=== PATIENT | female | born 1995 ===

== ENCOUNTER 2023-12-02 08:22 | Outpatient (CLI) | payer MEDICAID, SELFPAY | END 2023-12-02 08:23 | disposition home or self-care (01) | PROVIDERS: Visit Provider Obstetrics & Gynecology | DX: O20.9 Hemorrhage in early pregnancy, unspecified (principal) | CPT/HCPCS: 84702; 86850; 86900; 86901 ==

== ENCOUNTER 2024-02-14 09:19 | Emergency (ER) | payer MEDICAID, SELFPAY ==
[2024-02-14 09:25] VITALS: BP 121/77; PULSE 84; RESP 16; TEMP 36.8; O2SAT 98; BMI 34.7
--- NOTE | 2024-02-14 09:50 | CRLHL7_ITS ---
For Patients: As a result of the Century Cures Act, medical imaging exams and procedure reports are released immediately into your electronic medical record. You may view this report before your referring provider. If you have questions, please contact your health care provider. INDICATION: Left lower quadrant abdominal pain, spotting, early , LMP 12/29/2023 (gestational age 6 weeks 5 day). TECHNIQUE: Ultrasound OB pelvis transvaginal. Real-time major-scale imaging of the pelvis was performed. COMPARISON: None available. FINDINGS: There is a single intrauterine gestation. The embryo demonstrates a regular cardiac rate measuring 123 beats per minute. The embryo`s crown rump length measurement of 0.7 cm corresponds to a gestational age of 6 weeks 4 days with a sonographic due date of 10/05/2024. There is a normal-appearing yolk sac. No perigestational hemorrhage is identified. Right ovary measures 3.8 x 2.2 x 2.5 cm with peripherally hypervascular corpus luteum. Left ovary measures 2.8 x 1.6 x 1.8 cm. No adnexal masses seen. IMPRESSION: Single viable intrauterine with sonographic gestational age of 6 weeks 4 days. Dictated by Jami Alexander MD @ 02/14/2024 10:42:50 AM (Electronically Signed)
[2024-02-14 10:01] LABS: Appearance Urine Clear (Clear); Bilirubin Urine Negative (Negative); Blood Urine 1+ (Negative); Color Urine Yellow (Yellow); Glucose Urine Negative (Negative); Ketones Urine Negative (Negative); Leukocyte Esterase Urine Negative (Negative); Nitrite Urine Negative (Negative); Protein Urine Negative (Negative); Urobilinogen Urine 0.2 (0.2-1.0)
[2024-02-14 10:10] LABS: Bacteria Urine Few; RBC Urine 0-2 (0-2); Squamous Epithelial Cell Urine Few (None-Few); WBC Urine 0-2 (0-5)
--- NOTE | 2024-02-14 10:10 | ED.ABDPAIN ---
HPI - Abdominal Pain General Chief Complaint: Abdominal Pain Stated Complaint: L side abdominal cramping, spotting Time Seen by Provider: 02/14/24 10:09 History of Present Illness HPI narrative: Patient is 6 weeks 5days . 4pregnancy, 2 living kids. Started having spotting and cramping on left side on wednesday night. Bleeding has not gotten any heavier but pain is 8/10 but comes and goes. patient is worried about the pain. Does have some nausea. Last bowel movement last night?loose stools. 28-year-old woman presenting to the emergency department with concern of bleeding in . Did have some nausea during this time. Initial onset was 2 nights ago. Saw some brown blood and then brighter. Associated also with cramping on this left-sided seems to come and go. No recent intercourse. She reports recently what she thinks was a chemical . Currently with 2 miscarriages. Has been experiencing looser stools since noting . No dysuria. Reports positive blood type. She thinks O positive. Has already set up follow-up OB appointment on February 24. Related Data Home Medications ?Medication ?Instructions ?Recorded ?Confirmed vitamins no.144-folic 2 tab PO DAILY 02/14/24 02/14/24 acid 400 mcg chewable tablet () Allergies Allergy/AdvReac Type Severity Reaction Status Date / Time No Known Drug Allergies Allergy Verified 02/14/24 09:24 Review of Systems Status of ROS Reports: 6 or more systems reviewed and unremarkable except as noted in History and below PFSH PFS Social History Smoking Status: Never smoker Do you use any of these nicotine containing products: None Second hand tobacco smoke exposure: No How often do you have a drink containing alcohol: never AUDIT-C Alcohol total score: 0 Non-prescribed substance use: denies use service: No Exam Narrative: Exam Narrative: Pleasant. Quite calm. Skin is warm and dry. Abdomen is soft without peritoneal signs. She is mildly tender to palpation in the left adnexal area to left of suprapubic. Well-perfused peripherally. Breathing easily. exam was not done. Const: Vital Signs, click to edit/add: Vital Signs - 24 hr 02/14/24 09:25 Temperature 98.3 F Pulse Rate [Pulse Oximeter] 84 Respiratory Rate 16 Blood Pressure [Ri ght Upper Arm] 121/77 Pulse Oximetry 98 Oxygen Delivery Me thod Room Air Documenting provider has reviewed patient's vital signs: yes Course Vital Signs Vital signs: Initial Vital Signs Temperature 98.3 F 02/14/24 09:25 Temperature Source Temporal Artery Scan 02/14/24 09:25 Pulse Rate 84 02/14/24 09:25 Pulse Rhythm Regular 02/14/24 09:25 Pulse Strength 3+ Normal 02/14/24 09:25 Respiratory Rate 16 02/14/24 09:25 Blood Pressure 121/77 02/14/24 09:25 Blood Pressure Mean 91 02/14/24 09:25 Pulse Oximetry 98 02/14/24 09:25 Oxygen Delivery Method Room Air 02/14/24 09:25 Vital Signs Temperature 98.3 F 02/14/24 09:25 Pulse Rate 84 02/14/24 09:25 Respiratory Rate 16 02/14/24 09:25 Blood Pressure 121/77 02/14/24 09:25 Pulse Oximetry 98 02/14/24 09:25 Oxygen Delivery Method Room Air 02/14/24 09:25 Temperature 98.3 F 02/14/24 09:25 Pulse Rate 84 02/14/24 09:25 Respiratory Rate 16 02/14/24 09:25 Blood Pressure 121/77 02/14/24 09:25 Pulse Oximetry 98 02/14/24 09:25 Oxygen Delivery Method Room Air 02/14/24 09:25 MDM - Abdominal Pain MDM Narrative Medical decision making narrative: Would need verification of location of . Differential does include ectopic . Subchorionic hemorrhage possible as well. Miscarriage otherwise? And does not seem to have symptoms otherwise to suggest bleeding associated with a vaginal infection. Symptoms inconsistent also with urinary tract infection. Prior to my seeing patient, blood work has been collected. Anticipating vaginal ultrasound as well. Labs are reassuring. Urinalysis with small amount of blood on dipstick. Pending yet is hCG quantitative and type and screen. I do not believe there is description of enough bleeding to warrant RhoGAM equivalent regardless. I discussed ultrasound with plant operations coordinator. This is reassuring with LMP correlating intrauterine . Would consider possibly resolved subchorionic hemorrhage as source of bleeding. Pending yet is formal over-read by Radiology, confirmation of blood type as well as hCG quantitative. TECHNIQUE: Ultrasound OB pelvis transvaginal. Real-time major-scale imaging of the pelvis was performed. COMPARISON: None available. FINDINGS: There is a single intrauterine gestation. The embryo demonstrates a regular cardiac rate measuring 123 beats per minute. The embryo`s crown rump length measurement of 0.7 cm corresponds to a gestational age of 6 weeks 4 days with a sonographic due date of 10/05/2024. There is a normal-appearing yolk sac. No perigestational hemorrhage is identified. Right ovary measures 3.8 x 2.2 x 2.5 cm with peripherally hypervascular corpus luteum. Left ovary measures 2.8 x 1.6 x 1.8 cm. No adnexal masses seen. IMPRESSION: Single viable intrauterine with sonographic gestational age of 6 weeks 4 days. See patient discharge plan for further discussion Medical Records Attestation: I reviewed the patient's medical records. Lab Data Attestation: I reviewed the patient's lab results. Labs: Lab Results 02/14/24 02/14/24 Range/Units 09:45 10:10 WBC 5.81 (4.50-11.00) K/uL RBC 4.69 (4.00-5.20) m/uL Hgb 13.6 (12.0-16.0) gm/dL Hct 42.2 (33.0-51.0) % MCV 90 (80-100) fL MCH 29 (26-34) pg MCHC 32 (32-36) gm/dL RDW Coeff of Brittni 13.0 (11.5-15.5) % Plt Count 171 (140-440) K/uL Neut % (Auto) 58.3 (42.0-72.0) % Lymph % (Auto) 32.4 (20-44) % [place] % (Auto) 5.3 (0.0-11.0) % Eos % (Auto) 3.3 (0.0-7.0) % Baso % (Auto) 0.7 (0.0-3.0) % Neut # (Auto) 3.39 (1.7-7.0) K/uL Lymph # (Auto) 1.88 (0.90-2.90) K/uL [place] # (Auto) 0.30 (0.00-0.90) K/UL Eos # (Auto) 0.19 (0.00-0.50) K/uL Baso # (Auto) 0.04 (0.00-0.30) K/uL Abs Immat Gran (auto) 0.00 (0.00-0.30) K/uL Imm/Tot Granulo (auto) 0.0 % Urine Color Yellow (Yellow) Urine Appearance Clear (Clear) Urine pH 7.0 (5.0-8.5) Ur Specific [place] 1.010 (1.000-1.030) Urine Protein Negative (Negative) Urine Glucose (UA) Negative (Negative) Urine Ketones Negative (Negative) Urine Blood 1+ A (Negative) Urine Nitrite Negative (Negative) Urine Bilirubin Negative (Negative) Urine Urobilinogen 0.2 (0.2-1.0) Ur Leukocyte Esterase Negative (Negative) Urine RBC 0-2 (0-2) Urine WBC 0-2 (0-5) Ur Squamous Epith Cells Few (None-Few) Urine Bacteria Few A (None) Discharge Plan Discharge Clinical Impression: Bleeding in early Patient Disposition: Home, Self-Care Condition: Stable Additional Instructions: Stay well-hydrated. Usual level of activity should be fine. At this point it looks like your is doing well and consistent with your last menstrual period dating. I will call you if there is anything further to discuss regarding the remaining labs and the formal ultrasound report/over-read. Follow-up otherwise for your OB appointment as scheduled in 11 days. Return sooner if necessary for further bleeding such that your soaking through 1 heavy pad an hour for 2 consecutive hours, experiencing associated lightheadedness, fever, marked increase in persistent abdominal pain. [facility] from [facility]. Prescriptions: No Action 400 mcg tablet,chewable 2 tab PO DAILY Follow Up/Referrals: Provider,Not a Local [Primary Care Provider] - Stand Alone Forms: [employer] Info Instructions
[2024-02-14 10:16] LABS: Basophils Absolute Auto 0.04 K/uL (0.00-0.30); Basophils Percent Auto 0.7 % (0.0-3.0); Eosinophils Absolute Auto 0.19 K/uL (0.00-0.50); Eosinophils Percent Auto 3.3 % (0.0-7.0); Hematocrit 42.2 % (33.0-51.0); Hemoglobin* 13.6 gm/dL (12.0-16.0); Lymphocytes Absolute Auto 1.88 K/uL (0.90-2.90); Lymphocytes Percent Auto 32.4 % (20-44); Mean Corpuscular HGB Conc 32 gm/dL (32-36); Mean Corpuscular Hemoglobin 29 pg (26-34); Mean Corpuscular Volume 90 fL (80-100); Monocytes Percent Auto 5.3 % (0.0-11.0); Neutrophils Absolute Auto 3.39 K/uL (1.7-7.0); Neutrophils Percent Auto 58.3 % (42.0-72.0); Platelet Count* 171 K/uL (140-440); Red Blood Count 4.69 m/uL (4.00-5.20); Slide Review Reflex No; White Blood Count* 5.81 K/uL (4.50-11.00)
== END 2024-02-14 11:01 | disposition home or self-care (01) ==
LOC: ED 10:49
PROVIDERS: Emergency Medicine; Emergency Provider Family Medicine
DX: O20.9 Hemorrhage in early pregnancy, unspecified (principal)
CPT/HCPCS: 36415; 76817; 81001; 84702; 85025; 86850; 86900; 86901; 87086; 99283; 99284

== ENCOUNTER 2024-02-15 12:49 | Outpatient (CLI) | payer MEDICAID, SELFPAY ==
--- OUTSIDE RECORDS SUMMARY | 2024-02-15 12:52 | XMS_ITS | Clinical Summary ---
Author Organization [employer] [facility] Address [place], [place] [address] Care Team Providers Care Jumbo Operator Name Role Phone Pcp, No Unavailable Unavailable Pcp, No Unavailable Unavailable None Primary Care Provider Unavailabl e Allergies No known active allergies Medications Medication Sig Dispensed Refills Start Date End Date Status HYDROcodone-aceta minophen (NORCO) 5-325 mg per tabletIndications :Dental infection,Pain, dental Take 1 Tablet by mouth 3 times daily if needed for Pain. Max acetaminophen dose: 4000 mg in 24 hrs. 15 Tablet 08/27/2021 Active benzonatate (TESSALON) 100 mg capsuleIndication s:Acute bronchitis with symptoms > 10 days Take 1-2 Capsules (100-200 mg) by mouth 3 times daily if needed for Cough. 30 Capsule 01/13/2023 Active albuterol HFA (PRO-AIR; VENTOLIN; PROVENTIL) 90 mcg/actuation inhalerIndication s:Acute bronchitis with symptoms > 10 days Inhale 1-2 Puffs by mouth every 4 hours if needed for Shortness Of Breath or Wheezing. 1 Each 01/13/2023 Active Active Problems Problem Noted Date Diagnosed Date Irregular menses Immunizations Name Administration Dates Next Due DTaP 12/19/1998, 6,03/02/1995,12/07,1994 Hepatitis A (Adult) 01/30/2014 Hepatitis A (Peds) 02/18/2011 Hepatitis B (Peds) 08/26/1995,1994, 994 Hib Conjugate, Unspecified 08/26/1995,,1994,10/05 Human Papilloma Virus Vaccine 01/30/2014, 011 Influenza, IIV4 (=>6mos) MDV 03/06/2014 MENINGOCOCCAL VACCINE 2 VIAL 2MO-55YO (MENVEO) 02/18/2011 MMR 12/19/1998,05/14/1995 Polio Virus, Unspecified 12/19/1998,01/1995,1994,10/05 TD, UNSPECIFIED 07/18/2004 Td (Age >=7 Years) 07/18/2004 Tdap 11/05/2020,11/10/2018 Tuberculin (PPD) 03/12/2014,02/27/2014 Tuberculin Skin Test, Unspecified 03/12/2014, Family History Medical History Relation Name Comments Diabetes Father Diabetes Mother Endometrial cancer Mother Hypertension Mother Relation Name Status Comments Father Alive Mother Alive Social History Tobacco Use Types Packs/Day Years Used Date Smoking Tobacco: Never Smokeless Tobacco: Never Tobacco Cessation:Counseling Given: Yes Alcohol Use Standard Drinks/Week Comments No 0 (1 standard drink = 0.6 oz pur e alcohol) PHQ-2 Answer Date Recorded PHQ-2 Score 0 07/11/2019 Social Connections Answer Date Recorded Frequency of Communication with Friends and Fami ly 0 01/13/2023 Financial Resource Strain Answer Date R ecorded Difficulty of Paying Living Expenses 3 01/13/2023 Difficulty of Paying Living Expenses Not on file 01/13/2023 Food Insecurity Answer Date Recorded Worried About Running Out of Food in the Last Ye ar 1 01/13/2023 Transportation Needs Answer Date Record ed Lack of Transportation (Medical) 1 01/13/2023 Housing Stability Answer Date Recorded Unable to Pay for Housing in the Last Year 1 01/13/2023 Sex and Gender Information Value Date Recorded Sex Assigned at Not on file Gender Identity Not on file Sexual Orientation Not on file Obstetrics History Para Term AB IAB SAB Ectopic Multiple Livin g Live Births 2 Date Outcome GA Total Labor Labor/2nd/3rd Weight Sex Type Anes PTL Mimi A1 A5 Name Clin Last Filed Vital Signs Vital Sign Reading Time Taken Comments Blood Pressure 121/70 01/13/2023 5:05 PM CDT Pulse 90 01/13/2023 7:00 PM CDT Temperature 36.7 ??C (98.1 ??F) 01/13/2023 5:05 PM CD T Respiratory Rate 18 01/13/2023 5:05 PM CDT Oxygen Saturation 99% 01/13/2023 7:00 PM CDT Inhaled Oxygen Concentration - - Weight 88.5 kg (195 lb) 01/13/2023 5:05 PM CDT Height 162.6 cm (5' 4) 08/11/2020 7:30 PM CLAIMS ASSOCIATE Body Mass Index 33.47 08/11/2020 7:30 PM CLAIMS ASSOCIATE Plan of Treatment Health Maintenance Due Date Last Done Comments HIV for age 15-65 2009 Hepatitis C screening for age 18-79 2012 BMI (ht and wt on same day) for age 18+ 07/11/2020 07/11/2019, 03/30/2018, 01/10/2018, Additional history exists Depression screening for age 12+ 07/14/2020 07/14/2019, 07/11/2019, 01/12/2018, Additional history exists Pap test for age 21-65 06/17/2023 06/17/2020, 2017 COVID-19 vaccine series (2022- season) 2024 Influenza for age 9-49 02/06/2024 03/06/2014 Tetanus booster 11/05/2030 11/05/2020, 0611/2018, 07/18/2004, Additional history exists Tdap Completed 11/05/2020, 11/10/2018 Pneumococcal series for age 6-64 Aged Out No longer eligible based on patient's age to complete this topic Procedures Procedure Name Priority Date/Time Associated Diagnosis Comments DIRECTOR OF OPERATIONS SUPPORT THIN PREP PAP SCREEN IMAGED Routine 06/17/2020 3:15 PM CLAIMS ASSOCIATE from Last 3 Months or Most Recently Relevant to Health Maintenance Results * DIRECTOR OF OPERATIONS SUPPORT THIN PREP PAP SCREEN IMAGED (06/17/2020 3:15 PM CLAIMS ASSOCIATE) Case Report Gynecologic Cytology Report ? Case: [id number] ? Authorizing Provider: ??Lise Nation CNM ? Collected: ? 06/17/2020 1515 ? Ordering Location: ? [facility] ?Received: ?06/18/2020 1745 ? First Screen: ?Alona Allison ? Specimen: ?DIRECTOR OF OPERATIONS SUPPORT ThinPrep Vial Screening, Cervical/Vaginal ? 06/25/2020 12:20 PM [facility] INTERPRETATION/ RESULT NEGATIVE FOR INTRAEPITHELIAL LESION OR MALIGNANCY (NIL) (none) 06/25/2020 12:20 PM [facility] IMEN ADEQUACY Satisfactory for evaluation Endocervical component present 06/25/2020 12:20 PM [facility] HPV REQUEST HPV if ASCUS 06/25/2020 12:20 PM [facility] Additional Information 06/25/2020 12:20 PM [facility] Comment: Interpreted at [facility] - [address], [place] [address] Automated Review Successful 06/25/2020 12:20 PM [facility] Comment:Specimen processed s uccessfully by automated film flat inspector device, ThinPrep Imaging System, [employer] Note The pap test is a screening technique, not a diagnostic procedure. It is used primarily to screen for squamous cancers and precursor lesions. Published studies have shown that it is subject to both false negative and false positive results. The pap test should not be used as the sole means to diagnose or exclude pre-malignant and malignant lesions. 06/25/2020 12:20 PM CLAIMS ASSOCIATE [facility] [place] Other (Cervical/Vagina l) 06/17/2020 3:15 PM CLAIMS ASSOCIATE 06/18/2020 5:45 PM CLAIMS ASSOCIATE Lise Nation CNM PATHOLOGY/CYTOLOGY [facility] [employer] [facility] [address] [place] [address], from Last 3 Months or Most Recently Relevant to Health Maintenance Care Teams Jumbo Operator Relationship Specialty Start Date End Date None . PCP - General 01/13/23 Pcp, No . 10/16/16 Pcp, No . 08/25/13
--- NOTE | 2024-02-15 13:00 | CRLHL7_ITS ---
For Patients: As a result of the Century Cures Act, medical imaging exams and procedure reports are released immediately into your electronic medical record. You may view this report before your referring provider. If you have questions, please contact your health care provider. INDICATION: Abnormal vaginal bleeding in early . TECHNIQUE: Transvaginal limited obstetric ultrasound examination of the pelvis was performed. Grayscale and color Doppler images were obtained. COMPARISON: Pelvic ultrasound 02/14/2024. FINDINGS: Uterus: Normal in echotexture. No suspicious masses. Endometrium: No significant endometrial free fluid. Intrauterine gestation: Yes. Mean sac diameter of 1.0 cm. cardiac activity: Yes. [address] [place]-rump length: 7 mm. Estimated gestational age of 6 weeks and 4 days. Yolk sac: Normal. Perigestational hemorrhage: No. Estimated sonographic due date: 10/06/2024. Right Ovary: No suspicious masses. Possible right corpus luteal cyst. Normal arterial and venous flow on color Doppler imaging. Left ovary: Not visualized, limiting its evaluation. The left ovary appeared within normal limits on the ultrasound performed the previous day. Cul-de-sac: No free fluid. IMPRESSION: Single viable intrauterine with estimated gestational age of 6 weeks and 4 days by crown-rump length, and estimated due date of 10/06/2024. Dictated by Warner Molina MD @ 02/15/2024 6:28:45 PM (Electronically Signed)
== END 2024-02-15 12:50 | disposition home or self-care (01) ==
LOC: US 12:50
PROVIDERS: Visit Provider Obstetrics & Gynecology
DX: O20.9 Hemorrhage in early pregnancy, unspecified (principal)
CPT/HCPCS: 76817

== ENCOUNTER 2024-02-18 14:15 | Outpatient (CLI) | payer MEDICAID, SELFPAY ==
--- OUTSIDE RECORDS SUMMARY | 2024-02-18 14:17 | XMS_ITS | Clinical Summary ---
Author Organization [facility] Address [place], [place] [address] Care Team Providers Care Hardboard Coating Machine Operator Name Role Phone Pcp, No Unavailable [...] Problem Noted Date Diagnosed Date Irregular menses Comments Yes Encounters Date Type Department Care Team Description 02/16/2024 11:42 AM CDT - 02/16/2024 1:30 PM CDT Emergency [facility] [address] [place] [address] Joaquim Bowers PA Miscarriage (Primary Dx) Discharge Disposition: Home Self Care 02/16/2024 Travel 02/16/2024 Nurse Triage [facility] [address] [facility] [id number] Crescencio Arias MD Vaginal Bleeding from Last 3 Months Immunizations Name Administration Dates Next Due DTaP [...] Housing in the Last Year 1 01/13/2023 Comments Yes Sex and Gender Information Value Date Recorded Sex Assigned at Female 02/16/2024 12:01 PM CDT Gender Identity Female 02/16/2024 12:01 PM CDT Sexual Orientation Straight 02/16/2024 12 :01 PM CDT Obstetrics History Para Term AB IAB SAB Ectopic Multiple Livin g Live Births 3 Date Outcome GA Total Labor Labor/2nd/3rd Weight Sex Type Anes PTL Mimi A1 A5 Name Clin Current Last Filed Vital Signs Vital Sign Reading Time Taken Comments Blood Pressure 134/78 02/16/2024 11:47 AM CDT Pulse 101 02/16/2024 11:47 AM CDT Temperature 36.9 ??C (98.4 ??F) 02/16/2024 11:47 AM C DT Respiratory Rate 17 02/16/2024 11:47 AM CDT Oxygen Saturation 99% 02/16/2024 11:47 AM CDT Inhaled Oxygen Concentration - - Weight 87.5 kg (193 lb) 02/16/2024 11:47 AM CDT Height 162.6 cm (5' 4) 02/16/2024 11:47 AM CDT Body Mass Index 33.13 02/16/2024 11:47 AM CDT Plan of Treatment Health Maintenance Due Date Last Done Comments HIV for age 15-65 2009 Hepatitis C screening for age 18-79 2012 BMI (ht and wt on same day) for age 18+ 07/11/2020 07/11/2019, 03/30/2018, 01/10/2018, Additional history exists Depression screening for age 12+ 07/14/2020 07/14/2019, 07/11/2019, 01/12/2018, Additional history exists Pap test for age 21-65 06/17/2023 06/17/2020, 2017 COVID-19 vaccine series ( season) 2024 Influenza for age 9-49 02/06/2024 03/06/2014 Tetanus booster 11/05/2030 11/05/2020, 11/2018, 07/18/2004, Additional history exists RSV vaccine for adults or (1 - 1-dose 60+ series) 2054 Tdap Completed 11/05/2020, 11/10/2018 Pneumococcal series for age 6-64 Aged Out No longer eligible based on patient's age to complete this topic Procedures Procedure Name Priority Date/Time Associated Diagnosis Comments BLOOD BANK EXTRA LAVENDER TOP STAT 02/16/2024 12:33 PM CDT RED CELL MORPHOLOGY STAT 02/16/2024 1 2:33 PM CDT PLATELET ESTIMATE STAT 02/16/2024 12: 33 PM CDT CBC WITH AUTO DIFFERENTIAL STAT 02/16/2024 12:33 PM CDT HCG BETA QUANT, STAT 02/16/2024 12:33 PM CDT CBC WITH AUTO DIFFERENTIAL STAT 02/16/2024 12:33 PM CDT URINALYSIS MICROSCOPIC STAT 02/16/2024 11:54 AM CDT UA W/ SEDIMENT EXAM REFLEXED PER CRITERIA STAT 02/16/2024 11:54 AM CDT GLASS BREAKER THIN PREP PAP SCREEN IMAGED Routine 06/17/2020 3:15 PM GLUING MACHINE FEEDER from Last 3 Months or Most Recently Relevant to Health Maintenance Results * (ABNORMAL) CBC WITH AUTO DIFFERENTIAL (02/16/2024 12:33 PM CDT) WHITE BLOOD COUNT 7.1 4.5 - 11.0 thou/cu mm 02/16/2024 1:09 PM CDT [facility] RED BLOOD COUNT 4.69 4.00 - 5.20 mil/cu mm 02/16/2024 1:09 PM CDT [facility] HEMOGLOBIN 13.7 12.0 - 16.0 g/dL 02/16/2024 1:09 PM CDT [facility] HEMATOCRIT 41.8 33.0 - 51.0 % 02/16/2024 1:09 PM [facility] MCV 89 80 - 100 fL 02/16/2024 1:09 PM [facility] MCH 29.2 26.0 - 34.0 pg 02/16/2024 1:09 PM [facility] MCHC 32.8 32.0 - 36.0 g/dL 02/16/2024 1:09 PM [facility] RDW 13.4 11.5 - 15.5 % 02/16/2024 1:09 PM [facility] PLATELET COUNT 188 140 - 440 thou/cu mm 02/16/2024 1:09 PM [facility] MPV 13.7(H) 6.5 - 11.0 fL 02/16/2024 1:09 PM [facility] % NEUT 67.3 % 02/16/2024 1:09 PM [facility] % LYMPH 23.3 % 02/16/2024 1:09 PM [facility] % MONO 5.6 % 02/16/2024 1:09 PM [facility] % EOS 3.5 % 02/16/2024 1:09 PM [facility] % BASO 0.3 % 02/16/2024 1:09 PM [facility] ABSOLUTE NEUTROPHILS 4.8 1.7 - 7.0 thou/cu mm 02/16/2024 1:09 PM [facility] ABSOLUTE LYMPHOCYTES 1.7 0.9 - 2.9 thou/cu mm 02/16/2024 1:09 PM [facility] ABSOLUTE MONOCYTES 0.4 <0.9 thou/cu mm 02/16/2024 1:09 PM [facility] ABSOLUTE EOSINOPHILS 0.3 <0.5 thou/cu mm 02/16/2024 1:09 PM [facility] ABSOLUTE BASOPHILS 0.0 <0.3 thou/cu mm 02/16/2024 1:09 PM [facility] Blood BLOOD SPECIMEN / Unknown Venipuncture / Unknown 02/16/2024 12:33 PM CDT 02/16/2024 12:43 PM CDT Joaquim ARZOLA HEMATOLOGY [facility] [address] [place] [address] * RED CELL MORPHOLOGY (02/16/2024 12:33 PM CDT) Pathologist [facility] [place] RBC COMMENT RBC morphology appears normal RBC morphology appears normal, RBC morphology within normal limits for newborns. 02/16/2024 1:09 PM CDT [facility] LARGE PLATELETS Present 02/16/2024 1:09 PM CDT [facility] Blood BLOOD SPECIMEN / Unknown Venipuncture / Unknown 02/16/2024 12:33 PM CDT 02/16/2024 12:43 PM CDT Joaquim ARZOLA HEMATOLOGY Performing Organization Address City/[facility]/ZIP Co de Phone Number [facility] [address] [place] [address] * PLATELET ESTIMATE (02/16/2024 12:33 PM CDT) Pathologist [facility] [place] PLATELET ESTIMATE Adequate Adequate, No estimate 02/16/2024 1:09 PM CDT [facility] Blood BLOOD SPECIMEN / Unknown Venipuncture / Unknown 02/16/2024 12:33 PM CDT 02/16/2024 12:43 PM CDT Joaquim ARZOLA HEMATOLOGY [facility] [address] [place] [address] * BLOOD BANK EXTRA LAVENDER TOP (02/16/2024 12:33 PM CDT) Blood BLOOD SPECIMEN / Unknown Venipuncture / Unknown 02/16/2024 12:33 PM CDT 02/16/2024 12:43 PM CDT Joaquim ARZOLA BLOOD BANK Performing Organization Address [facility]/ZIP Co de Phone Number [facility] [address] [place] [address] * HCG BETA QUANT, (02/16/2024 12:33 PM CDT) Pathologist [facility] [place] HCG BETA QUANT,PREGNANC Y 1,333 mIU/mL 02/16/2024 1:18 PM CDT [facility] Blood BLOOD SPECIMEN / Unknown Venipuncture / Unknown 02/16/2024 12:33 PM CDT 02/16/2024 12:43 PM CDT Narrative [facility] - 02/16/2024 1:18 PM CDT Expected Value for Healthy Non- premenopausal women <5.3mIU/mL FOR GESTATIONAL ASSESSMENT-See Range Table Below Weeks of gestation hCG mIU/mL 3 weeks gestation (5.8 - 71.2) 4 weeks gestation (9.5 - 750) 5 weeks gestation (217 - 7138) 6 weeks gestation (158 - 31,795) 7 weeks gestation (3,697 - 163,563) 8 weeks gestation (32,065 - 149,571) 9 weeks gestation (63,803 - 151,410) 10 weeks gestation (46,509 - 186,977) 12 weeks gestation (27,832 - 210,612) 14 weeks gestation (13,950 - 62,530) 15 weeks gestation (12,039 - 70,971) 16 weeks gestation (9,040 - 56,451) 17 weeks gestation (8,175 - 55,868) 18 weeks gestation (8,099 - 58,176) Biotin supplements may cause clinically significant interference for this test assay. ??If interference is suspected, it is strongly recommended that biotin is discontinued for at least one week prior to retesting. Joaquim ARZOLA CHEMISTRY Performing Organization Address City/[facility]/ZIP Co de Phone Number [facility] [address] [place] [address] * (ABNORMAL) URINALYSIS MICROSCOPIC (02/16/2024 11:54 AM CDT) RBC >100(A) 0-2, None Seen /HPF 02/16/2024 12:47 PM [facility] WBC 0-2 0-2, 3-5, None Seen /HPF 02/16/2024 12:47 PM [facility] BACTERIA Rare None Seen, Rare, Few Bacteria/H PF 02/16/2024 12:47 PM [facility] EPITHELIAL CELLS Few None Seen, Few Epi/HPF 02/16/2024 12:47 PM [facility] Urine URINE SPECIMEN / Unknown Non-Blood / Unknown 02/16/2024 11:54 AM CDT 02/16/2024 11:56 AM CDT Joaquim ARZOLA URINE [facility] [address] [place] [id number] * (ABNORMAL) UA W/ SEDIMENT EXAM REFLEXED PER CRITERIA (02/16/2024 11:54 AM CDT) COLOR [place](A) Yellow Color 02/16/2024 12:45 PM [facility] CLARITY Slightly Cloudy(A) Clear Clarity 02/16/2024 12:45 PM [facility] SPECIFIC GRAVITY,URINE 1.020 1.010, 1.015, 1.020, 1.025 02/16/2024 12:45 PM [facility] PH,URINE 7.5 6.0, 7.0, 8.0, 5.5, 6.5, 7.5, 8.5 02/16/2024 12:45 PM [facility] UROBILINOGEN, QUALITATIVE Normal Normal EU/dl 02/16/2024 12:45 PM [facility] PROTEIN, URINE Negative Negative mg/dL 02/16/2024 12:45 PM [facility] GLUCOSE, URINE Negative Negative mg/dL 02/16/2024 12:45 PM [facility] KETONES,URINE Negative Negative mg/dL 02/16/2024 12:45 PM CDT [facility] BILIRUBIN,URI NE Negative Negative 02/16/2024 12:45 PM CDT [facility] OCCULT BLOOD,URINE Large(A) Negative 02/16/2024 12:45 PM CDT [facility] NITRITE Negative Negative 02/16/2024 12:45 PM CDT [facility] LEUKOCYTE ESTERASE Negative Negative 02/16/2024 12:45 PM CDT [facility] Urine URINE SPECIMEN / Unknown Non-Blood / Unknown 02/16/2024 11:54 AM CDT 02/16/2024 11:56 AM CDT Joaquim ARZOLA URINE [facility] [address] [place] [address] * GLASS BREAKER THIN PREP PAP SCREEN IMAGED (06/17/2020 3:15 PM GLUING MACHINE FEEDER) Case Report Gynecologic Cytology Report ? Case: [id number] ? Authorizing Provider: ??Lise Nation CNM ? Collected: ? 06/17/2020 1515 ? Ordering Location: ? [facility] ?Received: ?06/18/2020 1745 ? First Screen: ?Alona Allison ? Specimen: ?GLASS BREAKER ThinPrep Vial Screening, Cervical/Vaginal ? 06/25/2020 12:20 PM GLUING MACHINE FEEDER [facility] INTERPRETATION/ RESULT NEGATIVE FOR INTRAEPITHELIAL LESION OR MALIGNANCY (NIL) (none) 06/25/2020 12:20 PM GLUING MACHINE FEEDER [facility] IMEN ADEQUACY Satisfactory for evaluation Endocervical component present 06/25/2020 12:20 PM GLUING MACHINE FEEDER [facility] HPV REQUEST HPV if ASCUS 06/25/2020 12:20 PM GLUING MACHINE FEEDER [facility] Additional Information 06/25/2020 12:20 PM GLUING MACHINE FEEDER [facility] Comment: Interpreted at [facility] - [address], [place] [address] Automated Review Successful 06/25/2020 12:20 PM GLUING MACHINE FEEDER [facility] Comment:Specimen processed s uccessfully by automated railroad firer/fireman device, [employer] System, [email or web address] Note The pap test is a screening technique, not a diagnostic procedure. It is used primarily to screen for squamous cancers and precursor lesions. Published studies have shown that it is subject to both false negative and false positive results. The pap test should not be used as the sole means to diagnose or exclude pre-malignant and malignant lesions. 06/25/2020 12:20 PM GLUING MACHINE FEEDER [facility] Other (Cervical/Vagina l) 06/17/2020 3:15 PM GLUING MACHINE FEEDER 06/18/2020 5:45 PM GLUING MACHINE FEEDER Lise Nation CNM PATHOLOGY/CYTOLOGY [facility] [address] [place] [address], [place] from Last 3 Months or Most Recently Relevant to Health Maintenance Care Teams Hardboard Coating Machine Operator Relationship Specialty Start Date End Date None . PCP - General 01/13/23 Pcp, No . 10/16/16 Pcp, No . 08/25/13
--- NOTE | 2024-02-18 14:45 | CRLHL7_ITS ---
For Patients: As a result of the Cures Act, medical imaging exams and procedure reports are released immediately into your electronic medical record. You may view this report before your referring provider. If you have questions, please contact your health care provider. HISTORY: Threatened . COMPARISON: Early OB ultrasound from 02/15/2024. TECHNIQUE: Transvaginal ultrasound examination of the early was performed. FINDINGS: A single intrauterine gestational sac is now located in the lower uterine segment. Again seen is a pole and a yolk sac. The crown-rump length measurement of 0.5 cm gives an estimated gestational age of 6 weeks 1 day with an estimated date of delivery of 10/12/2024. There has been no growth compared to the previous ultrasound which had ultrasound age of 6 weeks 4 days. No cardiac activity is seen, findings of demise and spontaneous in progress. There is no sign of free fluid in the pelvis. The right ovary is normal in appearance. The left ovary is nonvisualized. IMPRESSION: 1. Gestational sac now located in the lower uterine segment. 2. Absent cardiac activity with no interval growth compared to the previous ultrasound, findings of demise 3. Findings suggest spontaneous in progress. Dictated by Kali Eid MD @ 02/18/2024 9:34:01 PM (Electronically Signed)
== END 2024-02-18 14:16 | disposition home or self-care (01) ==
LOC: US 14:15
PROVIDERS: Visit Provider Midwife
DX: O20.0 Threatened abortion (principal)
CPT/HCPCS: 76817; 84443; 84702

== ENCOUNTER 2024-03-20 11:38 | Outpatient (CLI) | payer MEDICAID, SELFPAY ==
--- OUTSIDE RECORDS SUMMARY | 2024-03-20 15:23 | XMS_ITS | Clinical Summary ---
Author Organization [facility] Address [place], [place] [address] Care Team Providers Care Chief Drafter Name Role Phone Pcp, No Unavailable Unavailable [...] Problem Noted Date Diagnosed Date Irregular menses Encounters Date Type Department Care Team Description 03/17/2024 12:56 PM CDT - 03/17/2024 4:07 PM CDT Emergency [facility] [address] [place] [address] Wanda Washington MD Vaginal bleeding (Primary Dx) Discharge Disposition: Home Self Care 03/17/2024 12:45 PM CDT Office Visit [facility] [address] [place] [phone] Shelby Funes NP Vaginal Bleeding 03/17/2024 Travel 02/16/2024 11:42 AM CDT - 02/16/2024 1:30 PM CDT Emergency [facility] [address] [place] [address] Joaquim Bowers PA Miscarriage (Primary Dx) Discharge Disposition: Home Self Care 02/16/2024 Travel 02/16/2024 Nurse Triage [facility] [address] [place] [phone] Crescencio Arias MD Vaginal Bleeding from Last 3 Months Immunizations Name Administration Dates Next Due DTaP 12/19/1998, 6,03/02/1995,12/07,1994 Hepatitis A (Adult) 01/30/2014 Hepatitis A (Peds) 02/18/2011 Hepatitis B (Peds) 08/26/1995,1994, 994 Hib Conjugate, Unspecified 08/26/1995,,1994,10/05 Human Papilloma Virus Vaccine 01/30/2014, 011 Influenza, IIV4 (=>6mos) MDV 03/06/2014 MENINGOCOCCAL VACCINE 2 VIAL 2MO-55YO (MENVEO) 02/18/2011 MMR 12/19/1998,05/14/1995 Polio Virus, Unspecified 12/19/1998,1201/1995,1994,10/05 TD, UNSPECIFIED 07/18/2004 Td (Age >=7 Years) [...] Sign Reading Time Taken Comments Blood Pressure 136/95 03/17/2024 2:13 PM CDT Pulse 80 03/17/2024 2:13 PM CDT Temperature 36.7 ??C (98 ??F) 03/17/2024 2:13 PM CDT Respiratory Rate 20 03/17/2024 2:13 PM CDT Oxygen Saturation 99% 03/17/2024 2:13 PM CDT Inhaled Oxygen Concentration - - Weight 89.4 kg (197 lb) 03/17/2024 2:13 PM CDT Height 162.6 cm (5' 4) 03/17/2024 2:13 PM CDT Body Mass Index 33.81 03/17/2024 2:13 PM CDT Plan of Treatment Health Maintenance Due [...] 9-49 02/06/2024 03/06/2014 Tetanus booster 11/05/2030 11/05/2020, 06/0 11/2018, 07/18/2004, Additional history exists Tdap Completed 11/05/2020, 11/10/2018 Pneumococcal series for age 6-64 Aged Out No longer eligible based on patient's age to complete this topic Procedures Procedure Name Priority Date/Time Associated Diagnosis Comments US OB 1ST TRI SINGLE TA AND TV STAT 03/17/2024 3:13 PM CDT BLOOD BANK EXTRA LAVENDER TOP STAT 03/17/2024 1:18 PM CDT PLATELET ESTIMATE STAT 03/17/2024 1:1 8 PM CDT RED CELL MORPHOLOGY STAT 03/17/2024 1 :18 PM CDT HCG BETA QUANT, STAT 03/17/2024 1:18 PM CDT BASIC METABOLIC PANEL STAT 03/17/2024 1:18 PM CDT CBC W PLT NO DIFF STAT 03/17/2024 1:1 8 PM CDT BLOOD BANK EXTRA LAVENDER TOP STAT 02/16/2024 [...] PER CRITERIA STAT 02/16/2024 11:54 AM CDT GLAZIER STRUCTURAL GLASS THIN PREP PAP SCREEN IMAGED Routine 06/17/2020 3:15 PM HEALTH EDUCATION ASSISTANT from Last 3 Months or Most Recently Relevant to Health Maintenance Results * US OB 1ST TRI SINGLE TA AND TV (03/17/2024 3:13 PM CDT) Anatomical Region Laterality Modality Ultrasound 03/17/2024 3:26 PM CDT Narrative 03/17/2024 3:26 PM CDT For Patients: ??As a result of the Cures Act, medical imaging exams and procedure reports are released immediately into your electronic medical record. ??You may view this report before your referring provider. ??If you have questions, please contact your health care provider. Indication: viability/status LMP: Not reported. Technique: Real-time sonographic images of the pelvis were obtained transabdominally and transvaginally using grayscale, color, and Doppler imaging. Comparison: None. Findings: Uterus: 9.6 x 5.2 x 4.8 centimeter. section scars are seen. Endometrium measures 9 millimeter. Gestational sac: Not visualized. pole: Not visualized. Yolk sac: Not visualized. Right ovary: Size: 2.8 x 2.7 x 2.4 centimeter. Appearance: Normal morphology. No masses. ?? Left ovary: Not visualized. Bladder: Visualized bladder is normal. Other: No free fluid. Impression: No intrauterine gestational sac is identified. Findings may be seen in setting of early , missed , or ectopic . Recommend follow-up with serial beta-hCG and/or ultrasound. Dictated by Amanuel Chapman MD @ 03/17/2024 3:26:49 PM (Electronically Signed) Procedure Note Ismael Chapman MD - 03/17/2024 For Patients: As a result of the 21st Century Cures Act, medical imagingexams and procedure reports are released immediately into your electronicmedical record. You may view this report before your referring provider.If you have questions, please contact your health care provider. Indication: viability/status LMP: Not reported. Technique: Real-time sonographic images of the pelvis were obtained transabdominallyand transvaginally using grayscale, color, and Doppler imaging. Comparison: None. Findings: Uterus: 9.6 x 5.2 x 4.8 centimeter. section scars are seen.Endometrium measures 9 millimeter. Gestational sac: Not visualized. pole: Not visualized. Yolk sac: Not visualized. Right ovary: Size: 2.8 x 2.7 x 2.4 centimeter. Appearance: Normal morphology. No masses. Left ovary: Not visualized. Bladder: Visualized bladder is normal. Other: No free fluid. Impression: No intrauterine gestational sac is identified. Findings may be seen insetting of early , missed , or ectopic .Recommend follow-up with serial beta-hCG and/or ultrasound. Dictated by Amanuel Chapman MD @ 03/17/2024 3:26:49 PM (Electronically Signed) Wanda Washington MD * RED CELL MORPHOLOGY (03/17/2024 1:18 PM CDT) Only the most recent of2 resultswithin the time period is included. RBC COMMENT RBC morphology appears normal RBC morphology appears normal, RBC morphology within normal limits for newborns. 03/17/2024 2:11 PM CDT [facility] LARGE PLATELETS Present 03/17/2024 2:11 PM CDT [facility] Blood BLOOD SPECIMEN / Unknown Venipuncture / Unknown 03/17/2024 1:18 PM CDT 03/17/2024 1:27 PM CDT Wanda Washington MD HEMATOLOGY [facility] [address] [place] [address] * PLATELET ESTIMATE (03/17/2024 1:18 PM CDT) Only the most recent of2 resultswithin the time period is included. Pathologist [facility] PLATELET ESTIMATE Adequate Adequate, No estimate 03/17/2024 2:11 PM CDT [facility] Blood BLOOD SPECIMEN / Unknown Venipuncture / Unknown 03/17/2024 1:18 PM CDT 03/17/2024 1:27 PM CDT Wanda Washington MD HEMATOLOGY Performing Organization Address [facility]/ZIP Co de Phone Number [facility] [address] [place] [address] * BLOOD BANK EXTRA [facility] (03/17/2024 1:18 PM CDT) Only the most recent of2 resultswithin the time period is included. Blood BLOOD SPECIMEN / Unknown Venipuncture / Unknown 03/17/2024 1:18 PM CDT 03/17/2024 1:27 PM CDT Wanda Washington MD BLOOD BANK Performing Organization Address [facility]/ZIP Co de Phone Number [facility] [address] [place] [address] * (ABNORMAL) CBC W PLT NO DIFF (03/17/2024 1:18 PM CDT) Pathologist [facility] WHITE BLOOD COUNT 5.8 4.5 - 11.0 thou/cu mm 03/17/2024 2:11 PM T [facility] RED BLOOD COUNT 4.40 4.00 - 5.20 mil/cu mm 03/17/2024 2:[address] [facility] HEMOGLOBIN 12.8 12.0 - 16.0 g/dL 03/17/2024 2:[address] [facility] HEMATOCRIT 38.9 33.0 - 51.0 % 03/17/2024 2:[address] [facility] MCV 88 80 - 100 fL 03/17/2024 2:11 PM T [facility] MCH 29.1 26.0 - 34.0 pg 03/17/2024 2:11 PM CDT [facility] MCHC 32.9 32.0 - 36.0 g/dL 03/17/2024 2:11 PM CDT [facility] RDW 12.8 11.5 - 15.5 % 03/17/2024 2:11 PM CDT [facility] PLATELET COUNT 208 140 - 440 thou/cu mm 03/17/2024 2:11 PM CDT [facility] MPV 13.8(H) 6.5 - 11.0 fL 03/17/2024 2:11 PM CDT [facility] Blood BLOOD SPECIMEN / Unknown Venipuncture / Unknown 03/17/2024 1:18 PM CDT 03/17/2024 1:27 PM CDT Wanda Washington MD HEMATOLOGY Performing Organization Address City/State/[facility] Co de Phone Number [facility] [address] [place] [address] * HCG BETA QUANT, (03/17/2024 1:18 PM CDT) Only the most recent of2 resultswithin the time period is included. HCG BETA QUANT,PREGNANC Y 8 mIU/mL 03/17/2024 2:04 PM CDT [facility] Blood BLOOD SPECIMEN / Unknown Venipuncture / Unknown 03/17/2024 1:18 PM CDT 03/17/2024 1:27 PM CDT Narrative [facility] - 03/17/2024 2:04 PM CDT Expected Value for Healthy Non- [...] at least one week prior to retesting. Wanda Washington MD CHEMISTRY [facility] [address] [place] [address] * (ABNORMAL) BASIC METABOLIC PANEL (03/17/2024 1:18 PM CDT) SODIUM 141 136 - 145 mmol/L 03/17/2024 1:[address] [facility] POTASSIUM 3.6 3.5 - 5.1 mmol/L 03/17/2024 1:[address] [facility] CHLORIDE 106 98 - 107 mmol/L 03/17/2024 1:[address] [facility] CO2,TOTAL 25 22 - 29 mmol/L 03/17/2024 1:[address] [facility] ANION GAP 10 5 - 18 03/17/2024 1:[address] [facility] GLUCOSE 104(H) 70 - 99 mg/dL 03/17/2024 1:[address] [facility] CALCIUM 8.9 8.6 - 10.0 mg/dL 03/17/2024 1:[address] [facility] BUN 5(L) 6 - 20 mg/dL 03/17/2024 1:[address] [facility] CREATININE 0.43(L) 0.50 - 0.90 mg/dL 03/17/2024 1:[address] [facility] BUN/CREAT RATIO 12 10 - 20 1:[address] [facility] eGFR >90 >90 mL/min/1.7 3m2 03/17/2024 1:[address] [facility] Comment:As of 2021, eG FR is calculated by the CKD-EPI creatinine equation without race adjustment. ??eGFR can be influenced by muscle mass, exercise, and diet. ??The reported eGFR is an estimation only and is only applicable if the renal function is stable. Blood BLOOD SPECIMEN / Unknown Venipuncture / Unknown 03/17/2024 1:18 PM CDT 03/17/2024 1:27 PM CDT Wanda Washington MD CHEMISTRY [facility] [address] [place] [address] * (ABNORMAL) CBC WITH AUTO DIFFERENTIAL (02/16/2024 12:33 PM CDT) WHITE BLOOD COUNT 7.1 4.5 - 11.0 thou/cu mm 02/16/2024 1:[address] [facility] RED BLOOD COUNT 4.69 4.00 - 5.20 mil/cu mm 02/16/2024 1:[address] [facility] HEMOGLOBIN 13.7 12.0 - 16.0 g/dL 02/16/2024 1:[address] [facility] HEMATOCRIT 41.8 33.0 - 51.0 % 02/16/2024 1:[address] [facility] MCV 89 80 - 100 fL 02/16/2024 1:[address] [facility] MCH 29.2 26.0 - 34.0 pg 02/16/2024 1:[address] [facility] MCHC 32.8 32.0 - 36.0 g/dL 02/16/2024 1:[address] [facility] RDW 13.4 11.5 - 15.5 % 02/16/2024 1:[address] [facility] PLATELET COUNT 188 140 - 440 thou/cu mm 02/16/2024 1:[address] [facility] MPV 13.7(H) 6.5 - 11.0 fL 02/16/2024 1:[address] [facility] % NEUT 67.3 % 02/16/2024 1:[address] [facility] % LYMPH 23.3 % 02/16/2024 1:[address] [facility] % MONO 5.6 % 02/16/2024 1:[address] [facility] % EOS 3.5 % 02/16/2024 1:[address] [facility] % BASO 0.3 % 02/16/2024 1:[address] [facility] ABSOLUTE NEUTROPHILS 4.8 1.7 - 7.0 thou/cu mm 02/16/2024 1:[address] [facility] ABSOLUTE LYMPHOCYTES 1.7 0.9 - 2.9 thou/cu mm 02/16/2024 1:[address] [facility] ABSOLUTE MONOCYTES 0.4 <0.9 thou/cu mm 02/16/2024 1:[address] [facility] ABSOLUTE EOSINOPHILS 0.3 <0.5 thou/cu mm 02/16/2024 1:[address] [facility] ABSOLUTE BASOPHILS 0.0 <0.3 thou/cu mm 02/16/2024 1:[address] [facility] Blood BLOOD SPECIMEN / Unknown Venipuncture / Unknown 02/16/2024 12:33 PM CDT 02/16/2024 12:43 PM CDT Joaquim ARZOLA HEMATOLOGY [facility] [address] [place] [address] * (ABNORMAL) URINALYSIS MICROSCOPIC (02/16/2024 11:54 AM CDT) RBC >100(A) 0-2, None Seen /HPF 02/16/2024 12:[address] [facility] WBC 0-2 0-2, 3-5, None Seen /HPF 02/16/2024 12:[address] [facility] BACTERIA Rare None Seen, Rare, Few Bacteria/H PF 02/16/2024 12:[address] [facility] EPITHELIAL CELLS Few None Seen, Few Epi/HPF 02/16/2024 12:[address] [facility] Urine URINE SPECIMEN / Unknown Non-Blood / Unknown 02/16/2024 11:54 AM CDT 02/16/2024 11:56 AM CDT Joaquim ARZOLA URINE [facility] [address] [place] [address] * (ABNORMAL) UA W/ SEDIMENT EXAM REFLEXED PER CRITERIA (02/16/2024 11:54 AM CDT) COLOR [place](A) Yellow Color 02/16/2024 12:[address] [facility] CLARITY Slightly Cloudy(A) Clear Clarity 02/16/2024 12:[address] [facility] SPECIFIC GRAVITY,URINE 1.020 1.010, 1.015, 1.020, 1.025 02/16/2024 12:[address] [facility] PH,URINE 7.5 6.0, 7.0, 8.0, 5.5, 6.5, 7.5, 8.5 02/16/2024 12:[address] [facility] UROBILINOGEN, QUALITATIVE Normal Normal EU/dl 02/16/2024 12:[address] [facility] PROTEIN, URINE Negative Negative mg/dL 02/16/2024 12:[address] [facility] GLUCOSE, URINE Negative Negative mg/dL 02/16/2024 12:[address] [facility] KETONES,URINE Negative Negative mg/dL 02/16/2024 12:[address] [facility] BILIRUBIN,URI NE Negative Negative 02/16/2024 12:45 PM CDT [facility] OCCULT BLOOD,URINE Large(A) Negative 02/16/2024 12:45 PM CDT [facility] NITRITE Negative Negative 02/16/2024 12:45 PM CDT [facility] LEUKOCYTE ESTERASE Negative Negative 02/16/2024 12:45 PM CDT [facility] Urine URINE SPECIMEN / Unknown Non-Blood / Unknown 02/16/2024 11:54 AM CDT 02/16/2024 11:56 AM CDT Joaquim ARZOLA URINE [facility] [address] [place] [address] * GLAZIER STRUCTURAL GLASS THIN PREP PAP SCREEN IMAGED (06/17/2020 3:15 PM HEALTH EDUCATION ASSISTANT) Case Report Gynecologic Cytology Report ? Case: [id number] ? Authorizing Provider: ??Lise Nation CNM ? Collected: ? 06/17/2020 1515 ? Ordering Location: ? [facility] ?Received: ?06/18/2020 1745 ? First Screen: ?Alona Allison ? Specimen: ?GLAZIER STRUCTURAL GLASS ThinPrep Vial Screening, Cervical/Vaginal ? 06/25/2020 12:20 PM HEALTH EDUCATION ASSISTANT [facility] INTERPRETATION/ RESULT NEGATIVE FOR INTRAEPITHELIAL LESION OR MALIGNANCY (NIL) (none) 06/25/2020 12:20 PM HEALTH EDUCATION ASSISTANT [facility] IMEN ADEQUACY Satisfactory for evaluation Endocervical component present 06/25/2020 12:20 PM HEALTH EDUCATION ASSISTANT [facility] HPV REQUEST HPV if ASCUS 06/25/2020 12:20 PM HEALTH EDUCATION ASSISTANT [facility] Additional Information 06/25/2020 12:20 PM HEALTH EDUCATION ASSISTANT [facility] Comment: Interpreted at [facility] - [address], [place] [address] Automated Review Successful 06/25/2020 12:20 PM HEALTH EDUCATION ASSISTANT [facility] Comment:Specimen processed s uccessfully by automated finance attorney device, ThinPrep Imaging System, [employer] Note The pap test is a screening technique, not a diagnostic procedure. It is used primarily to screen for squamous cancers and precursor lesions. Published studies have shown that it is subject to both false negative and false positive results. The pap test should not be used as the sole means to diagnose or exclude pre-malignant and malignant lesions. 06/25/2020 12:20 [address] HEALTH EDUCATION ASSISTANT [facility] Other (Cervical/Vagina l) 06/17/2020 3:15 PM HEALTH EDUCATION ASSISTANT 06/18/2020 5:45 PM HEALTH EDUCATION ASSISTANT Lise Nation CNM PATHOLOGY/CYTOLOGY [facility] [address] [place] [address], [place] from Last 3 Months or Most Recently Relevant to Health Maintenance Care Teams Chief Drafter Relationship Specialty Start Date End Date None . PCP - General 01/13/23 Pcp, No . 10/16/16 Pcp, No . 08/25/13
== END 2024-03-20 11:39 | disposition home or self-care (01) ==
LOC: NFLDREF 15:21
PROVIDERS: Visit Provider Advanced Practice Midwife
DX: O20.9 Hemorrhage in early pregnancy, unspecified (principal)
CPT/HCPCS: 84702

== ENCOUNTER 2024-03-28 11:20 | Outpatient (CLI) | payer MEDICAID, SELFPAY ==
--- OUTSIDE RECORDS SUMMARY | 2024-03-30 13:02 | XMS_ITS | Clinical Summary ---
Author Organization [facility] s & [facility] Address [place], [place] [address] Care Team Providers Care Loan Operations Manager Name Role Phone Pcp, No Unavailable Unavailable [...] CDT - 03/17/2024 4:07 PM CDT Emergency [facility] [address] [place] [address] Wanda Washington MD Vaginal bleeding (Primary Dx) Discharge Disposition: Home Self Care 03/17/2024 12:45 PM CDT Office Visit [facility] [address] [facility] [place] [address] Shelby Funes NP Vaginal Bleeding 03/17/2024 Travel 02/16/2024 11:42 AM CDT - 02/16/2024 1:30 PM CDT Emergency [facility] [address] [place] [address] Joaquim Bowers PA Miscarriage (Primary Dx) Discharge Disposition: Home Self Care 02/16/2024 Travel 02/16/2024 Nurse Triage [facility] [address] [facility] [place] [address] Crescencio Arias MD Vaginal Bleeding from Last [...] PER CRITERIA STAT 02/16/2024 11:54 AM CDT DELIVERY AND MAIL SORTER THIN PREP PAP SCREEN IMAGED Routine 06/17/2020 3:15 PM ECONOMIC CONSULTANT from Last 3 Months or Most Recently [...] limits for newborns. 03/17/2024 2:11 PM CDT [facility] LARGE PLATELETS Present 03/17/2024 2:11 PM CDT [facility] Blood BLOOD SPECIMEN / Unknown Venipuncture / Unknown 03/17/2024 1:18 PM CDT 03/17/2024 1:27 PM CDT Wanda Washington MD HEMATOLOGY [facility] [address] [place] [address] * PLATELET ESTIMATE (03/17/2024 1:18 PM CDT) Only the most recent of2 resultswithin the time period is included. Pathologist [facility] PLATELET ESTIMATE Adequate Adequate, No estimate 03/17/2024 2:11 PM CDT [facility] Blood BLOOD SPECIMEN / Unknown Venipuncture / Unknown 03/17/2024 1:18 PM CDT 03/17/2024 1:27 PM CDT Wanda Washington MD HEMATOLOGY Performing Organization Address [facility]/ZIP Co de Phone Number [facility] [address] [place] [address] * BLOOD BANK EXTRA [facility] (03/17/2024 1:18 PM CDT) Only the most recent of2 resultswithin the time period is included. Blood BLOOD SPECIMEN / Unknown Venipuncture / Unknown 03/17/2024 1:18 PM CDT 03/17/2024 1:27 PM CDT Wanad Washington MD BLOOD BANK Performing Organization Address [facility]/ZIP Co de Phone Number [facility] [address] [place] [address] * (ABNORMAL) CBC W PLT NO DIFF (03/17/2024 1:18 PM CDT) Pathologist [facility] WHITE BLOOD COUNT 5.8 4.5 - 11.0 thou/cu mm 03/17/2024 2:11 PM T [facility] RED BLOOD COUNT 4.40 4.00 - 5.20 mil/cu mm 03/17/2024 2:11 PM [facility] HEMOGLOBIN 12.8 12.0 - 16.0 g/dL 03/17/2024 2:11 PM [facility] HEMATOCRIT 38.9 33.0 - 51.0 % 03/17/2024 2:11 PM [facility] MCV 88 80 - 100 fL 03/17/2024 2:11 PM T [facility] MCH 29.1 26.0 - 34.0 pg 03/17/2024 2:11 PM CDT [facility] MCHC 32.9 32.0 - 36.0 g/dL 03/17/2024 2:11 PM CDT [facility] RDW 12.8 11.5 - 15.5 % 03/17/2024 2:11 PM CDT [facility] PLATELET COUNT 208 140 - 440 thou/cu mm 03/17/2024 2:11 PM CDT [facility] MPV 13.8(H) 6.5 - 11.0 fL 03/17/2024 2:11 PM CDT [facility] Blood BLOOD SPECIMEN / Unknown Venipuncture / Unknown 03/17/2024 1:18 PM CDT 03/17/2024 1:27 PM CDT Wanda Washington MD HEMATOLOGY Performing Organization Address City/State/[facility] Co de Phone Number [facility] [address] [place] [address] * HCG BETA QUANT, (03/17/2024 1:18 PM CDT) Only the most recent of2 resultswithin the time period is included. HCG BETA QUANT,PREGNANC Y 8 mIU/mL 03/17/2024 2:04 PM CDT [facility] Blood BLOOD SPECIMEN / Unknown Venipuncture / Unknown 03/17/2024 1:18 PM CDT 03/17/2024 1:27 PM CDT Narrative [facility] - 03/17/2024 2:04 PM CDT Expected [...] prior to retesting. Wanda Washington MD CHEMISTRY [facility] [address] [place] [address] * (ABNORMAL) BASIC METABOLIC PANEL (03/17/2024 1:18 PM CDT) SODIUM 141 136 - 145 mmol/L 03/17/2024 1:51 PM [facility] POTASSIUM 3.6 3.5 - 5.1 mmol/L 03/17/2024 1:51 PM [facility] CHLORIDE 106 98 - 107 mmol/L 03/17/2024 1:51 PM [facility] CO2,TOTAL 25 22 - 29 mmol/L 03/17/2024 1:51 PM [facility] ANION GAP 10 5 - 18 03/17/2024 1:51 PM [facility] GLUCOSE 104(H) 70 - 99 mg/dL 03/17/2024 1:51 PM [facility] CALCIUM 8.9 8.6 - 10.0 mg/dL 03/17/2024 1:51 PM [facility] BUN 5(L) 6 - 20 mg/dL 03/17/2024 1:51 PM [facility] CREATININE 0.43(L) 0.50 - 0.90 mg/dL 03/17/2024 1:51 PM [facility] BUN/CREAT RATIO 12 10 - 20 1:51 PM [facility] eGFR >90 >90 mL/min/1.7 3m2 03/17/2024 1:51 PM [facility] Comment:As of 2021, eG FR is calculated by the CKD-EPI creatinine equation without race adjustment. ??eGFR can be influenced by muscle mass, exercise, and diet. ??The reported eGFR is an estimation only and is only applicable if the renal function is stable. Blood BLOOD SPECIMEN / Unknown Venipuncture / Unknown 03/17/2024 1:18 PM CDT 03/17/2024 1:27 PM CDT Wanda Washington MD CHEMISTRY [facility] [address] [place] [address] * (ABNORMAL) CBC WITH AUTO DIFFERENTIAL (02/16/2024 12:33 PM CDT) WHITE BLOOD COUNT 7.1 4.5 - 11.0 thou/cu mm 02/16/2024 1:09 PM [facility] RED BLOOD COUNT 4.69 4.00 - 5.20 mil/cu mm 02/16/2024 1:09 PM [facility] HEMOGLOBIN 13.7 12.0 - 16.0 g/dL 02/16/2024 1:09 PM [facility] HEMATOCRIT 41.8 33.0 - 51.0 % 02/16/2024 1:09 PM [facility] MCV 89 80 - 100 fL 02/16/2024 1:09 PM [facility] MCH 29.2 26.0 - 34.0 pg 02/16/2024 1:09 PM [facility] MCHC 32.8 32.0 - 36.0 g/dL 02/16/2024 1:09 PM [facility] RDW 13.4 11.5 - 15.5 % 02/16/2024 1:09 PM [facility] PLATELET COUNT 188 140 - 440 thou/cu mm 02/16/2024 1:09 PM [facility] MPV 13.7(H) 6.5 - 11.0 fL 02/16/2024 1:09 PM [facility] % NEUT 67.3 % 02/16/2024 1:09 PM [facility] % LYMPH 23.3 % 02/16/2024 1:09 PM [facility] % MONO 5.6 % 02/16/2024 1:09 PM [facility] % EOS 3.5 % 02/16/2024 1:09 PM [facility] % BASO 0.3 % 02/16/2024 1:09 PM [facility] ABSOLUTE NEUTROPHILS 4.8 1.7 - 7.0 thou/cu mm 02/16/2024 1:09 PM [facility] ABSOLUTE LYMPHOCYTES 1.7 0.9 - 2.9 thou/cu mm 02/16/2024 1:09 PM [facility] ABSOLUTE MONOCYTES 0.4 <0.9 thou/cu mm 02/16/2024 1:09 PM [facility] ABSOLUTE EOSINOPHILS 0.3 <0.5 thou/cu mm 02/16/2024 1:09 PM [facility] ABSOLUTE BASOPHILS 0.0 <0.3 thou/cu mm 02/16/2024 1:09 PM [facility] Blood BLOOD SPECIMEN / Unknown Venipuncture / Unknown 02/16/2024 12:33 PM CDT 02/16/2024 12:43 PM CDT Joaquim ARZOLA HEMATOLOGY [facility] [address] [place] [address] * (ABNORMAL) URINALYSIS MICROSCOPIC (02/16/2024 11:54 AM CDT) RBC >100(A) 0-2, None Seen /HPF 02/16/2024 12:47 PM [facility] WBC 0-2 0-2, 3-5, None Seen /HPF 02/16/2024 12:47 PM [facility] BACTERIA Rare None Seen, Rare, Few Bacteria/H PF 02/16/2024 12:47 PM [facility] EPITHELIAL CELLS Few None Seen, Few Epi/HPF 02/16/2024 12:47 PM [facility] Urine URINE SPECIMEN / Unknown Non-Blood / Unknown 02/16/2024 11:54 AM CDT 02/16/2024 11:56 AM CDT Joaquim ARZOLA URINE [facility] [address] [place] [address] * (ABNORMAL) UA W/ SEDIMENT EXAM REFLEXED PER CRITERIA (02/16/2024 11:54 AM CDT) COLOR [place](A) Yellow Color 02/16/2024 12:45 PM [facility] CLARITY Slightly Cloudy(A) Clear Clarity 02/16/2024 12:45 PM [facility] SPECIFIC GRAVITY,URINE 1.020 1.010, 1.015, 1.020, 1.025 02/16/2024 12:45 PM [facility] PH,URINE 7.5 6.0, 7.0, 8.0, 5.5, 6.5, 7.5, 8.5 02/16/2024 12:45 PM [facility] UROBILINOGEN, QUALITATIVE Normal Normal EU/dl 02/16/2024 12:45 PM [facility] PROTEIN, URINE Negative Negative mg/dL 02/16/2024 12:45 PM [facility] GLUCOSE, URINE Negative Negative mg/dL 02/16/2024 12:45 PM [facility] KETONES,URINE Negative Negative mg/dL 02/16/2024 12:45 PM [facility] BILIRUBIN,URI NE Negative Negative 02/16/2024 12:45 [...] URINE [facility] [address] [place] [address] * DELIVERY AND MAIL SORTER THIN PREP PAP SCREEN IMAGED (06/17/2020 3:15 PM ECONOMIC CONSULTANT) Case Report Gynecologic Cytology Report ? Case: [id number] ? Authorizing Provider: ??Lise Nation CNM ? Collected: ? 06/17/2020 1515 ? Ordering Location: ? [facility] ?Received: ?06/18/2020 1745 ? First Screen: ?Alona Allison ? Specimen: ?DELIVERY AND MAIL SORTER ThinPrep Vial Screening, Cervical/Vaginal ? 06/25/2020 12:20 PM ECONOMIC CONSULTANT [facility] INTERPRETATION/ RESULT NEGATIVE FOR INTRAEPITHELIAL LESION OR MALIGNANCY (NIL) (none) 06/25/2020 12:20 PM ECONOMIC CONSULTANT [facility] IMEN ADEQUACY Satisfactory for evaluation Endocervical component present 06/25/2020 12:20 PM ECONOMIC CONSULTANT [facility] HPV REQUEST HPV if ASCUS 06/25/2020 12:20 PM ECONOMIC CONSULTANT [facility] Additional Information 06/25/2020 12:20 PM ECONOMIC CONSULTANT [facility] Comment: Interpreted at [facility] - [address], [place] [address] Automated Review Successful 06/25/2020 12:20 PM ECONOMIC CONSULTANT [facility] Comment:Specimen processed s uccessfully by automated oil burner mechanic device, ThinPrep Imaging System, [employer] Note The pap test is a screening technique, not a diagnostic procedure. It is used primarily to screen for squamous cancers and precursor lesions. Published studies have shown that it is subject to both false negative and false positive results. The pap test should not be used as the sole means to diagnose or exclude pre-malignant and malignant lesions. 06/25/2020 12:[address] [facility] Other (Cervical/Vagina l) 06/17/2020 3:15 PM ECONOMIC CONSULTANT 06/18/2020 5:45 PM ECONOMIC CONSULTANT Lise Nation CNM PATHOLOGY/CYTOLOGY [facility] [address] [place] [address], [place] from Last 3 Months or Most Recently Relevant to Health Maintenance Care Teams Loan Operations Manager Relationship Specialty Start Date End Date None . PCP - General 01/13/23 Pcp, No . 10/16/16 Pcp, No . 08/25/13
== END 2024-03-28 11:21 | disposition home or self-care (01) ==
LOC: NFLDREF 03-30 13:00
PROVIDERS: Visit Provider Advanced Practice Midwife
DX: O03.9 Complete or unspecified spontaneous abortion without complication (principal)
CPT/HCPCS: 84702

== ENCOUNTER 2024-03-30 16:52 | Outpatient (CLI) | payer MEDICAID, SELFPAY ==
--- OUTSIDE RECORDS SUMMARY | 2024-03-30 08:34 | XMS_ITS | Clinical Summary ---
Author Organization [facility] s & [facility]ates Address [place], [place] [address] Care Team Providers Care Upper And Bottom Lacer Hand Name Role Phone Pcp, No Unavailable Unavailable [...] CDT - 03/17/2024 4:07 PM CDT Emergency [facility] [address] [place] [address] Wanda Washington MD Vaginal bleeding (Primary Dx) Discharge Disposition: Home Self Care 03/17/2024 12:45 PM CDT Office Visit [facility] [address] [facility] [place] [address] Shelby Funes NP Vaginal Bleeding 03/17/2024 Travel 02/16/2024 11:42 AM CDT - 02/16/2024 1:30 PM CDT Emergency [facility] [address] [place] [address] Joaquim Bowers PA Miscarriage (Primary Dx) Discharge Disposition: Home Self Care 02/16/2024 Travel 02/16/2024 Nurse Triage [facility] [address] [facility] [place] [address] Crescencio Arias MD Vaginal Bleeding from Last [...] PER CRITERIA STAT 02/16/2024 11:54 AM CDT LOOM FIXER HELPER THIN PREP PAP SCREEN IMAGED Routine 06/17/2020 3:15 PM ASSISTANT EDITOR from Last 3 Months or Most Recently [...] limits for newborns. 03/17/2024 2:[address] [facility] LARGE PLATELETS Present 03/17/2024 2:[address] [facility] Blood BLOOD SPECIMEN / Unknown Venipuncture / Unknown 03/17/2024 1:18 PM CDT 03/17/2024 1:27 PM CDT Wanda Washington MD HEMATOLOGY [facility] [address] [place] [address] * PLATELET ESTIMATE (03/17/2024 1:18 PM CDT) Only the most recent of2 resultswithin the time period is included. Pathologist [facility] PLATELET ESTIMATE Adequate Adequate, No estimate 03/17/2024 2:[address] [facility] Blood BLOOD SPECIMEN / Unknown Venipuncture / Unknown 03/17/2024 1:18 PM CDT 03/17/2024 1:27 PM CDT Wanda Washington MD HEMATOLOGY Performing Organization Address [facility]/ZIP Co de Phone Number [facility] [address] [place] [address] * BLOOD BANK EXTRA [facility] (03/17/2024 1:18 PM CDT) Only the most recent of2 resultswithin the time period is included. Blood BLOOD SPECIMEN / Unknown Venipuncture / Unknown 03/17/2024 1:18 PM CDT 03/17/2024 1:27 PM CDT Wanda Washington MD BLOOD BANK Performing Organization Address [facility]/ZIP Co de Phone Number [facility] [address] [place] [address] * (ABNORMAL) CBC W PLT NO DIFF (03/17/2024 1:18 PM CDT) Pathologist [facility] WHITE BLOOD COUNT 5.8 4.5 - 11.0 thou/cu mm 03/17/2024 2:[address] [facility] RED BLOOD COUNT 4.40 4.00 - 5.20 mil/cu mm 03/17/2024 2:11 PM [facility] HEMOGLOBIN 12.8 12.0 - 16.0 g/dL 03/17/2024 2:11 PM [facility] HEMATOCRIT 38.9 33.0 - 51.0 % 03/17/2024 2:11 PM [facility] MCV 88 80 - 100 fL 03/17/2024 2:[address] [facility] MCH 29.1 26.0 - 34.0 pg 03/17/2024 2:[address] [facility] MCHC 32.9 32.0 - 36.0 g/dL 03/17/2024 2:[address] [facility] RDW 12.8 11.5 - 15.5 % 03/17/2024 2:[address] [facility] PLATELET COUNT 208 140 - 440 thou/cu mm 03/17/2024 2:[address] [facility] MPV 13.8(H) 6.5 - 11.0 fL 03/17/2024 2:[address] [facility] Blood BLOOD SPECIMEN / Unknown Venipuncture / Unknown 03/17/2024 1:18 PM CDT 03/17/2024 1:27 PM CDT Wanda Washington MD HEMATOLOGY Performing Organization Address City/State/[facility] Co de Phone Number [facility] [address] [place] [address] * HCG BETA QUANT, (03/17/2024 1:18 PM CDT) Only the most recent of2 resultswithin the time period is included. HCG BETA QUANT,PREGNANC Y 8 mIU/mL 03/17/2024 2:[address] [facility] Blood BLOOD SPECIMEN / Unknown Venipuncture / Unknown 03/17/2024 1:18 PM CDT 03/17/2024 1:[address] [facility] - 03/17/2024 2:04 PM CDT Expected [...] prior to retesting. Wanda Washington MD CHEMISTRY [facility] [address] [place] [address] * (ABNORMAL) BASIC METABOLIC PANEL (03/17/2024 1:18 PM CDT) SODIUM 141 136 - 145 mmol/L 03/17/2024 1:51 PM [facility] POTASSIUM 3.6 3.5 - 5.1 mmol/L 03/17/2024 1:51 PM [facility] CHLORIDE 106 98 - 107 mmol/L 03/17/2024 1:51 PM [facility] CO2,TOTAL 25 22 - 29 mmol/L 03/17/2024 1:51 PM [facility] ANION GAP 10 5 - 18 03/17/2024 1:51 PM [facility] GLUCOSE 104(H) 70 - 99 mg/dL 03/17/2024 1:51 PM [facility] CALCIUM 8.9 8.6 - 10.0 mg/dL 03/17/2024 1:51 PM [facility] BUN 5(L) 6 - 20 mg/dL 03/17/2024 1:51 PM [facility] CREATININE 0.43(L) 0.50 - 0.90 mg/dL 03/17/2024 1:51 PM [facility] BUN/CREAT RATIO 12 10 - 20 1:51 PM [facility] eGFR >90 >90 mL/min/1.7 3m2 03/17/2024 1:51 PM [facility] Comment:As of 2021, eG FR [...] 1:27 PM CDT Wanda Washington MD CHEMISTRY [facility] [address] [place] [address] * (ABNORMAL) CBC WITH AUTO DIFFERENTIAL (02/16/2024 12:33 PM CDT) WHITE BLOOD COUNT 7.1 4.5 - 11.0 thou/cu mm 02/16/2024 1:09 PM [facility] RED BLOOD COUNT 4.69 4.00 - 5.20 mil/cu mm 02/16/2024 1:09 PM [facility] HEMOGLOBIN 13.7 12.0 - 16.0 g/dL 02/16/2024 1:09 PM [facility] HEMATOCRIT 41.8 33.0 - 51.0 % 02/16/2024 1:09 PM [facility] MCV 89 80 - 100 fL 02/16/2024 1:09 PM [facility] MCH 29.2 26.0 - 34.0 pg 02/16/2024 1:09 PM [facility] MCHC 32.8 32.0 - 36.0 g/dL 02/16/2024 1:09 PM [facility] RDW 13.4 11.5 - 15.5 % 02/16/2024 1:09 PM [facility] PLATELET COUNT 188 140 - 440 thou/cu mm 02/16/2024 1:09 PM [facility] MPV 13.7(H) 6.5 - 11.0 fL 02/16/2024 1:09 PM [facility] % NEUT 67.3 % 02/16/2024 1:09 PM [facility] % LYMPH 23.3 % 02/16/2024 1:09 PM [facility] % MONO 5.6 % 02/16/2024 1:09 PM [facility] % EOS 3.5 % 02/16/2024 1:09 PM [facility] % BASO 0.3 % 02/16/2024 1:09 PM [facility] ABSOLUTE NEUTROPHILS 4.8 1.7 - 7.0 thou/cu mm 02/16/2024 1:09 PM [facility] ABSOLUTE LYMPHOCYTES 1.7 0.9 - 2.9 thou/cu mm 02/16/2024 1:09 PM [facility] ABSOLUTE MONOCYTES 0.4 <0.9 thou/cu mm 02/16/2024 1:09 PM [facility] ABSOLUTE EOSINOPHILS 0.3 <0.5 thou/cu mm 02/16/2024 1:09 PM [facility] ABSOLUTE BASOPHILS 0.0 <0.3 thou/cu mm 02/16/2024 1:09 PM [facility] Blood BLOOD SPECIMEN / Unknown Venipuncture / Unknown 02/16/2024 12:33 PM CDT 02/16/2024 12:43 PM CDT Joaquim ARZOLA HEMATOLOGY [facility] [address] [place] [address] * (ABNORMAL) URINALYSIS MICROSCOPIC (02/16/2024 11:54 AM CDT) RBC >100(A) 0-2, None Seen /HPF 02/16/2024 12:47 PM [facility] WBC 0-2 0-2, 3-5, None Seen /HPF 02/16/2024 12:47 PM [facility] BACTERIA Rare None Seen, Rare, Few Bacteria/H PF 02/16/2024 12:47 PM [facility] EPITHELIAL CELLS Few None Seen, Few Epi/HPF 02/16/2024 12:47 PM [facility] Urine URINE SPECIMEN / Unknown Non-Blood / Unknown 02/16/2024 11:54 AM CDT 02/16/2024 11:56 AM CDT Joaquim ARZOLA URINE [facility] [address] [place] [address] * (ABNORMAL) UA W/ SEDIMENT EXAM REFLEXED PER CRITERIA (02/16/2024 11:54 AM CDT) COLOR [place](A) Yellow Color 02/16/2024 12:45 PM [facility] CLARITY Slightly Cloudy(A) Clear Clarity 02/16/2024 12:45 PM [facility] SPECIFIC GRAVITY,URINE 1.020 1.010, 1.015, 1.020, 1.025 02/16/2024 12:45 PM [facility] PH,URINE 7.5 6.0, 7.0, 8.0, 5.5, 6.5, 7.5, 8.5 02/16/2024 12:45 PM [facility] UROBILINOGEN, QUALITATIVE Normal Normal EU/dl 02/16/2024 12:45 PM [facility] PROTEIN, URINE Negative Negative mg/dL 02/16/2024 12:45 PM [facility] GLUCOSE, URINE Negative Negative mg/dL 02/16/2024 12:45 PM [facility] KETONES,URINE Negative Negative mg/dL 02/16/2024 12:45 PM [facility] BILIRUBIN,URI NE Negative Negative 02/16/2024 12:[address] [facility] OCCULT BLOOD,URINE Large(A) Negative 02/16/2024 12:[address] [facility] NITRITE Negative Negative 02/16/2024 12:[address] [facility] LEUKOCYTE ESTERASE Negative Negative 02/16/2024 12:[address] [facility] Urine URINE SPECIMEN / Unknown Non-Blood / Unknown 02/16/2024 11:54 AM CDT 02/16/2024 11:56 AM CDT Joaquim ARZOLA URINE [facility] [address] [place] [address] * LOOM FIXER HELPER THIN PREP PAP SCREEN IMAGED (06/17/2020 3:15 PM ASSISTANT EDITOR) Case Report Gynecologic Cytology Report ? Case: [id number] ? Authorizing Provider: ??Lise Nation CNM ? Collected: ? 06/17/2020 1515 ? Ordering Location: ? [facility] ?Received: ?06/18/2020 1745 ? First Screen: ?Alona Allison ? Specimen: ?LOOM FIXER HELPER ThinPrep Vial Screening, Cervical/Vaginal ? 06/25/2020 12:20 PM ASSISTANT EDITOR [facility] INTERPRETATION/ RESULT NEGATIVE FOR INTRAEPITHELIAL LESION OR MALIGNANCY (NIL) (none) 06/25/2020 12:20 PM ASSISTANT EDITOR [facility] IMEN ADEQUACY Satisfactory for evaluation Endocervical component present 06/25/2020 12:20 PM ASSISTANT EDITOR [facility] HPV REQUEST HPV if ASCUS 06/25/2020 12:20 PM ASSISTANT EDITOR [facility] Additional Information 06/25/2020 12:20 PM ASSISTANT EDITOR [facility] Comment: Interpreted at [facility] - [address], [place] [address] Automated Review Successful 06/25/2020 12:20 PM ASSISTANT EDITOR [facility] Comment:Specimen processed s uccessfully by automated nozzle operator device, ThinPrep Imaging System, [employer] Note The pap test is a screening technique, not a diagnostic procedure. It is used primarily to screen for squamous cancers and precursor lesions. Published studies have shown that it is subject to both false negative and false positive results. The pap test should not be used as the sole means to diagnose or exclude pre-malignant and malignant lesions. 06/25/2020 12:20 PM ASSISTANT EDITOR [facility] Other (Cervical/Vagina l) 06/17/2020 3:15 PM ASSISTANT EDITOR 06/18/2020 5:45 PM ASSISTANT EDITOR Lise Nation CNM PATHOLOGY/CYTOLOGY [facility] [address] [place] [address], [place] from Last 3 Months or Most Recently Relevant to Health Maintenance Care Teams Upper And Bottom Lacer Hand Relationship Specialty Start Date End Date None . PCP - General 01/13/23 Pcp, No . 10/16/16 Pcp, No . 08/25/13
== END 2024-03-30 16:53 | disposition home or self-care (01) ==
PROVIDERS: Visit Provider Advanced Practice Midwife
DX: O36.80X0 Pregnancy with inconclusive fetal viability, not applicable or unspecified (principal)
CPT/HCPCS: 84702

== ENCOUNTER 2024-04-05 10:51 | Outpatient (CLI) | payer MEDICAID, SELFPAY ==
--- OUTSIDE RECORDS SUMMARY | 2024-04-05 10:53 | XMS_ITS | Clinical Summary ---
Author Organization [facility] Address [place], [place] [address] Care Team Providers Care Corporate Counselor Name Role Phone Pcp, No Unavailable Unavailable [...] CDT - 03/17/2024 4:07 PM CDT Emergency [facility] [address] [place] [address] Wanda Washington MD Vaginal bleeding (Primary Dx) Discharge Disposition: Home Self Care 03/17/2024 12:45 PM CDT Office Visit [facility] [address] [facility] [address] Shelby Funes NP Vaginal Bleeding 03/17/2024 Travel 02/16/2024 11:42 AM CDT - 02/16/2024 1:30 PM CDT Emergency [facility] [address] [place] [address] Joaquim Bowers PA Miscarriage (Primary Dx) Discharge Disposition: Home Self Care 02/16/2024 Travel 02/16/2024 Nurse Triage [facility] [address] [place] [address] Crescencio Arias MD Vaginal Bleeding from Last [...] PER CRITERIA STAT 02/16/2024 11:54 AM CDT COLLEGE DEAN THIN PREP PAP SCREEN IMAGED Routine 06/17/2020 3:15 PM RETAIL SALESWORKER from Last 3 Months or Most Recently [...] limits for newborns. 03/17/2024 2:11 PM CDT [facility] LARGE PLATELETS Present 03/17/2024 2:11 PM CDT [facility] Blood BLOOD SPECIMEN / Unknown Venipuncture / Unknown 03/17/2024 1:18 PM CDT 03/17/2024 1:27 PM CDT Wanda Washington MD HEMATOLOGY [facility] [address] [place] [address] * PLATELET ESTIMATE (03/17/2024 1:18 PM CDT) Only the most recent of2 resultswithin the time period is included. Pathologist [facility] PLATELET ESTIMATE Adequate Adequate, No estimate 03/17/2024 2:11 PM CDT [facility] Blood BLOOD SPECIMEN / Unknown Venipuncture / Unknown 03/17/2024 1:18 PM CDT 03/17/2024 1:27 PM CDT Wanda Washington MD HEMATOLOGY Performing Organization Address [facility]/ZIP Co de Phone Number [facility] [address] [place] [address] * BLOOD BANK [facility]TRA [facility] (03/17/2024 1:18 PM CDT) Only the most recent of2 resultswithin the time period is included. Blood BLOOD SPECIMEN / Unknown Venipuncture / Unknown 03/17/2024 1:18 PM CDT 03/17/2024 1:27 PM CDT Wanda Washington MD BLOOD BANK Performing Organization Address [facility]/ZIP Co de Phone Number [facility] [address] [place] [address] * (ABNORMAL) CBC W PLT NO DIFF (03/17/2024 1:18 PM CDT) Pathologist [facility] WHITE BLOOD COUNT 5.8 4.5 - 11.0 thou/cu mm 03/17/2024 2:11 PM T [facility] RED BLOOD COUNT 4.40 4.00 - 5.20 mil/cu mm 03/17/2024 2:11 PM [facility] HEMOGLOBIN 12.8 12.0 - 16.0 g/dL 03/17/2024 2:11 PM [facility] HEMATOCRIT 38.9 33.0 - 51.0 % 03/17/2024 2:11 PM [facility] MCV 88 80 - 100 fL 03/17/2024 2:11 PM T [facility] MCH 29.1 26.0 - 34.0 pg 03/17/2024 2:11 PM CDT [facility] MCHC 32.9 32.0 - 36.0 g/dL 03/17/2024 2:11 PM CDT [facility] RDW 12.8 11.5 - 15.5 % 03/17/2024 2:11 PM CDT [facility] PLATELET COUNT 208 140 - 440 thou/cu mm 03/17/2024 2:11 PM CDT [facility] MPV 13.8(H) 6.5 - 11.0 fL 03/17/2024 2:11 PM CDT [facility] Blood BLOOD SPECIMEN / Unknown Venipuncture / Unknown 03/17/2024 1:18 PM CDT 03/17/2024 1:27 PM CDT Wanda Washington MD HEMATOLOGY Performing Organization Address City/State/[facility] Co de Phone Number [facility] [address] [place] [address] * HCG BETA QUANT, (03/17/2024 1:18 PM CDT) Only the most recent of2 resultswithin the time period is included. HCG BETA QUANT,PREGNANC Y 8 mIU/mL 03/17/2024 2:04 PM CDT [facility] Blood BLOOD SPECIMEN / Unknown Venipuncture / Unknown 03/17/2024 1:18 PM CDT 03/17/2024 1:27 PM CDT Narrative [facility] - 03/17/2024 2:04 PM CDT Expected [...] prior to retesting. Wanda Washington MD CHEMISTRY [facility] [address] [place] [address] * (ABNORMAL) BASIC METABOLIC PANEL (03/17/2024 1:18 PM CDT) SODIUM 141 136 - 145 mmol/L 03/17/2024 1:51 PM [facility] POTASSIUM 3.6 3.5 - 5.1 mmol/L 03/17/2024 1:51 PM [facility] CHLORIDE 106 98 - 107 mmol/L 03/17/2024 1:51 PM [facility] CO2,TOTAL 25 22 - 29 mmol/L 03/17/2024 1:51 PM [facility] ANION GAP 10 5 - 18 03/17/2024 1:51 PM [facility] GLUCOSE 104(H) 70 - 99 mg/dL 03/17/2024 1:51 PM [facility] CALCIUM 8.9 8.6 - 10.0 mg/dL 03/17/2024 1:51 PM [facility] BUN 5(L) 6 - 20 mg/dL 03/17/2024 1:51 PM [facility] CREATININE 0.43(L) 0.50 - 0.90 mg/dL 03/17/2024 1:51 PM [facility] BUN/CREAT RATIO 12 10 - 20 1:51 PM [facility] eGFR >90 >90 mL/min/1.7 3m2 03/17/2024 1:51 PM [facility] Comment:As of 2021, eG FR is calculated by the CKD-EPI creatinine equation without race adjustment. ??eGFR can be influenced by muscle mass, exercise, and diet. ??The reported eGFR is an estimation only and is only applicable if the renal function is stable. Blood BLOOD SPECIMEN / Unknown Venipuncture / Unknown 03/17/2024 1:18 PM CDT 03/17/2024 1:27 PM CDT Wanda Washington MD CHEMISTRY [facility] [address] [place] [address] * (ABNORMAL) CBC WITH AUTO DIFFERENTIAL (02/16/2024 12:33 PM CDT) WHITE BLOOD COUNT 7.1 4.5 - 11.0 thou/cu mm 02/16/2024 1:09 PM [facility] RED BLOOD COUNT 4.69 4.00 - 5.20 mil/cu mm 02/16/2024 1:09 PM [facility] HEMOGLOBIN 13.7 12.0 - 16.0 g/dL 02/16/2024 1:09 PM [facility] HEMATOCRIT 41.8 33.0 - 51.0 % 02/16/2024 1:09 PM [facility] MCV 89 80 - 100 fL 02/16/2024 1:09 PM [facility] MCH 29.2 26.0 - 34.0 pg 02/16/2024 1:09 PM [facility] MCHC 32.8 32.0 - 36.0 g/dL 02/16/2024 1:09 PM [facility] RDW 13.4 11.5 - 15.5 % 02/16/2024 1:09 PM [facility] PLATELET COUNT 188 140 - 440 thou/cu mm 02/16/2024 1:09 PM [facility] MPV 13.7(H) 6.5 - 11.0 fL 02/16/2024 1:09 PM [facility] % NEUT 67.3 % 02/16/2024 1:09 PM [facility] % LYMPH 23.3 % 02/16/2024 1:09 PM [facility] % MONO 5.6 % 02/16/2024 1:09 PM [facility] % EOS 3.5 % 02/16/2024 1:09 PM [facility] % BASO 0.3 % 02/16/2024 1:09 PM [facility] ABSOLUTE NEUTROPHILS 4.8 1.7 - 7.0 thou/cu mm 02/16/2024 1:09 PM [facility] ABSOLUTE LYMPHOCYTES 1.7 0.9 - 2.9 thou/cu mm 02/16/2024 1:09 PM [facility] ABSOLUTE MONOCYTES 0.4 <0.9 thou/cu mm 02/16/2024 1:09 PM [facility] ABSOLUTE EOSINOPHILS 0.3 <0.5 thou/cu mm 02/16/2024 1:09 PM [facility] ABSOLUTE BASOPHILS 0.0 <0.3 thou/cu mm 02/16/2024 1:09 PM [facility] Blood BLOOD SPECIMEN / Unknown Venipuncture / Unknown 02/16/2024 12:33 PM CDT 02/16/2024 12:43 PM CDT Joaquim ARZOLA HEMATOLOGY [facility] [address] [place] [address] * (ABNORMAL) URINALYSIS MICROSCOPIC (02/16/2024 11:54 AM CDT) RBC >100(A) 0-2, None Seen /HPF 02/16/2024 12:47 PM [facility] WBC 0-2 0-2, 3-5, None Seen /HPF 02/16/2024 12:47 PM [facility] BACTERIA Rare None Seen, Rare, Few Bacteria/H PF 02/16/2024 12:47 PM [facility] EPITHELIAL CELLS Few None Seen, Few Epi/HPF 02/16/2024 12:47 PM [facility] Urine URINE SPECIMEN / Unknown Non-Blood / Unknown 02/16/2024 11:54 AM CDT 02/16/2024 11:56 AM CDT Joaquim ARZOLA URINE [facility] [address] [place] [address] * (ABNORMAL) UA W/ SEDIMENT EXAM REFLEXED PER CRITERIA (02/16/2024 11:54 AM CDT) COLOR [place](A) Yellow Color 02/16/2024 12:45 PM [facility] CLARITY Slightly Cloudy(A) Clear Clarity 02/16/2024 12:45 PM [facility] SPECIFIC GRAVITY,URINE 1.020 1.010, 1.015, 1.020, 1.025 02/16/2024 12:45 PM [facility] PH,URINE 7.5 6.0, 7.0, 8.0, 5.5, 6.5, 7.5, 8.5 02/16/2024 12:45 PM [facility] UROBILINOGEN, QUALITATIVE Normal Normal EU/dl 02/16/2024 12:45 PM [facility] PROTEIN, URINE Negative Negative mg/dL 02/16/2024 12:45 PM [facility] GLUCOSE, URINE Negative Negative mg/dL 02/16/2024 12:45 PM [facility] KETONES,URINE Negative Negative mg/dL 02/16/2024 12:45 PM [facility] BILIRUBIN,URI NE Negative Negative 02/16/2024 12:45 PM CDT [facility] OCCULT BLOOD,URINE Large(A) Negative 02/16/2024 12:45 PM CDT [facility] NITRITE Negative Negative 02/16/2024 12:45 PM CDT [facility] LEUKOCYTE ESTERASE Negative Negative 02/16/2024 12:45 PM CDT [facility] Urine URINE SPECIMEN / Unknown Non-Blood / Unknown 02/16/2024 11:54 AM CDT 02/16/2024 11:56 AM CDT Joaquim ARZOLA URINE [facility] [address] [place] [address] * COLLEGE DEAN THIN PREP PAP SCREEN IMAGED (06/17/2020 3:15 PM [employer] SAL[employer]ER) Case Report Gynecologic Cytology Report ? Case: [id number] ? Authorizing Provider: ??Lise Nation CNM ? Collected: ? 06/17/2020 1515 ? Ordering Location: ? [facility] ?Received: ?06/18/2020 1745 ? First Screen: ?Alona Allison ? Specimen: ?COLLEGE DEAN ThinPrep Vial Screening, Cervical/Vaginal ? 06/25/2020 12:20 PM RETAIL SALESWORKER [facility] INTERPRETATION/ RESULT NEGATIVE FOR INTRAEPITHELIAL LESION OR MALIGNANCY (NIL) (none) 06/25/2020 12:20 PM RETAIL SALESWORKER [facility] IMEN ADEQUACY Satisfactory for evaluation Endocervical component present 06/25/2020 12:20 PM RETAIL SALES[employer] [facility] HPV REQUEST HPV if ASCUS 06/25/2020 12:20 PM RETAIL SALESWORKER [facility] Additional Information 06/25/2020 12:20 PM RETAIL SALESWORKER [facility] Comment: Interpreted at [facility] - [address], [place] [address] Automated Review Successful 06/25/2020 12:20 PM RETAIL SALESWORKER [facility] Comment:Specimen processed s uccessfully by automated sample maker original device, ThinPrep Imaging System, [employer] Note The pap test is a screening technique, not a diagnostic procedure. It is used primarily to screen for squamous cancers and precursor lesions. Published studies have shown that it is subject to both false negative and false positive results. The pap test should not be used as the sole means to diagnose or exclude pre-malignant and malignant lesions. 06/25/2020 12:20 PM RETAIL SALESWORKER [facility] Other (Cervical/Vagina l) 06/17/2020 3:15 PM RETAIL SALESWORKER 06/18/2020 5:45 PM RETAIL SALESWORKER Lise Nation CNM PATHOLOGY/CYTOLOGY [facility] [address] [place] [address], [place] from Last 3 Months or Most Recently Relevant to Health Maintenance Care Teams Corporate Counselor Relationship Specialty Start Date End Date None . PCP - General 01/13/23 Pcp, No . 10/16/16 Pcp, No . 08/25/13
== END 2024-04-05 10:52 | disposition home or self-care (01) ==
LOC: NFLDREF 10:52
PROVIDERS: Visit Provider Advanced Practice Midwife
DX: O20.9 Hemorrhage in early pregnancy, unspecified (principal)
CPT/HCPCS: 76817; 84702

== ENCOUNTER 2024-04-07 09:45 | Outpatient (CLI) | payer MEDICAID, SELFPAY ==
--- OUTSIDE RECORDS SUMMARY | 2024-04-10 21:09 | XMS_ITS | Clinical Summary ---
Author Organization [facility] Address [place], [place] [address] Care Team Providers Care Correspondence Renew Clerk Name Role Phone Pcp, No Unavailable Unavailable [...] CDT - 03/17/2024 4:07 PM CDT Emergency [facility] [address] [place] [address] Wanda Washington MD Vaginal bleeding (Primary Dx) Discharge Disposition: Home Self Care 03/17/2024 12:45 PM CDT Office Visit [facility] [address] [place] [address] Shelby Funes NP Vaginal Bleeding 03/17/2024 Travel 02/16/2024 11:42 AM CDT - 02/16/2024 1:30 PM CDT Emergency [facility] [address] [place] [address] Joaquim Bowers PA Miscarriage (Primary Dx) Discharge Disposition: Home Self Care 02/16/2024 Travel 02/16/2024 Nurse Triage [facility] [address] [place] [address] Crescencio Arias MD Vaginal Bleeding from Last [...] PER CRITERIA STAT 02/16/2024 11:54 AM CDT PHARMACOLOGIST THIN PREP PAP SCREEN IMAGED Routine 06/17/2020 3:15 PM ANIMAL CARE ATTENDANT from Last 3 Months or Most Recently [...] limits for newborns. 03/17/2024 2:11 PM CDT [facility] LARGE PLATELETS Present 03/17/2024 2:11 PM CDT [facility] Blood BLOOD SPECIMEN / Unknown Venipuncture / Unknown 03/17/2024 1:18 PM CDT 03/17/2024 1:27 PM CDT Wanda Washington MD HEMATOLOGY [facility] [address] [place] [address] * PLATELET ESTIMATE (03/17/2024 1:18 PM CDT) Only the most recent of2 resultswithin the time period is included. Pathologist [facility] PLATELET ESTIMATE Adequate Adequate, No estimate 03/17/2024 2:11 PM CDT [facility] Blood BLOOD SPECIMEN / Unknown Venipuncture / Unknown 03/17/2024 1:18 PM CDT 03/17/2024 1:27 PM CDT Wanda Washington MD HEMATOLOGY Performing Organization Address [facility]/ZIP Co de Phone Number [facility] [address] [place] [address] * BLOOD BANK [facility] (03/17/2024 1:18 PM CDT) Only the most recent of2 resultswithin the time period is included. Blood BLOOD SPECIMEN / Unknown Venipuncture / Unknown 03/17/2024 1:18 PM CDT 03/17/2024 1:27 PM CDT Wanda Washington MD BLOOD BANK Performing Organization Address [facility]/ZIP Co de Phone Number [facility] [address] [place] [address] * (ABNORMAL) CBC W PLT NO DIFF (03/17/2024 1:18 PM CDT) Pathologist [facility] WHITE BLOOD COUNT 5.8 4.5 - 11.0 thou/cu mm 03/17/2024 2:11 PM T [facility] RED BLOOD COUNT 4.40 4.00 - 5.20 mil/cu mm 03/17/2024 2:11 PM [facility] HEMOGLOBIN 12.8 12.0 - 16.0 g/dL 03/17/2024 2:11 PM [facility] HEMATOCRIT 38.9 33.0 - 51.0 % 03/17/2024 2:11 PM [facility] MCV 88 80 - 100 fL 03/17/2024 2:11 PM T [facility] MCH 29.1 26.0 - 34.0 pg 03/17/2024 2:11 PM CDT [facility] MCHC 32.9 32.0 - 36.0 g/dL 03/17/2024 2:11 PM CDT [facility] RDW 12.8 11.5 - 15.5 % 03/17/2024 2:11 PM CDT [facility] PLATELET COUNT 208 140 - 440 thou/cu mm 03/17/2024 2:11 PM CDT [facility] MPV 13.8(H) 6.5 - 11.0 fL 03/17/2024 2:11 PM CDT [facility] Blood BLOOD SPECIMEN / Unknown Venipuncture / Unknown 03/17/2024 1:18 PM CDT 03/17/2024 1:27 PM CDT Wanda Washington MD HEMATOLOGY Performing Organization Address City/State/[facility] Co de Phone Number [facility] [address] [place] [address] * HCG BETA QUANT, (03/17/2024 1:18 PM CDT) Only the most recent of2 resultswithin the time period is included. HCG BETA QUANT,PREGNANC Y 8 mIU/mL 03/17/2024 2:04 PM CDT [facility] Blood BLOOD SPECIMEN / Unknown Venipuncture / Unknown 03/17/2024 1:18 PM CDT 03/17/2024 1:27 PM CDT Narrative [facility] - 03/17/2024 2:04 PM CDT [...] prior to retesting. Wanda Washington MD CHEMISTRY [facility] [address] [place] [address] * (ABNORMAL) BASIC METABOLIC PANEL (03/17/2024 1:18 PM CDT) SODIUM 141 136 - 145 mmol/L 03/17/2024 1:51 PM [facility] POTASSIUM 3.6 3.5 - 5.1 mmol/L 03/17/2024 1:51 PM [facility] CHLORIDE 106 98 - 107 mmol/L 03/17/2024 1:51 PM [facility] CO2,TOTAL 25 22 - 29 mmol/L 03/17/2024 1:51 PM [facility] ANION GAP 10 5 - 18 03/17/2024 1:51 PM [facility] GLUCOSE 104(H) 70 - 99 mg/dL 03/17/2024 1:51 PM [facility] CALCIUM 8.9 8.6 - 10.0 mg/dL 03/17/2024 1:51 PM [facility] BUN 5(L) 6 - 20 mg/dL 03/17/2024 1:51 PM [facility] CREATININE 0.43(L) 0.50 - 0.90 mg/dL 03/17/2024 1:51 PM [facility] BUN/CREAT RATIO 12 10 - 20 1:51 PM [facility] eGFR >90 >90 mL/min/1.7 3m2 03/17/2024 1:51 PM [facility] Comment:As of 2021, eG FR is calculated by the CKD-EPI creatinine equation without race adjustment. ??eGFR can be influenced by muscle mass, exercise, and diet. ??The reported eGFR is an estimation only and is only applicable if the renal function is stable. Blood BLOOD SPECIMEN / Unknown Venipuncture / Unknown 03/17/2024 1:18 PM CDT 03/17/2024 1:27 PM CDT Wanda Washington MD CHEMISTRY [facility] [address] [place] [address] * (ABNORMAL) CBC WITH AUTO DIFFERENTIAL (02/16/2024 12:33 PM CDT) WHITE BLOOD COUNT 7.1 4.5 - 11.0 thou/cu mm 02/16/2024 1:09 PM [facility] RED BLOOD COUNT 4.69 4.00 - 5.20 mil/cu mm 02/16/2024 1:09 PM [facility] HEMOGLOBIN 13.7 12.0 - 16.0 g/dL 02/16/2024 1:09 PM [facility] HEMATOCRIT 41.8 33.0 - 51.0 % 02/16/2024 1:09 PM [facility] MCV 89 80 - 100 fL 02/16/2024 1:09 PM [facility] MCH 29.2 26.0 - 34.0 pg 02/16/2024 1:09 PM [facility] MCHC 32.8 32.0 - 36.0 g/dL 02/16/2024 1:09 PM [facility] RDW 13.4 11.5 - 15.5 % 02/16/2024 1:09 PM [facility] PLATELET COUNT 188 140 - 440 thou/cu mm 02/16/2024 1:09 PM [facility] MPV 13.7(H) 6.5 - 11.0 fL 02/16/2024 1:09 PM [facility] % NEUT 67.3 % 02/16/2024 1:09 PM [facility] % LYMPH 23.3 % 02/16/2024 1:09 PM [facility] % MONO 5.6 % 02/16/2024 1:09 PM [facility] % EOS 3.5 % 02/16/2024 1:09 PM [facility] % BASO 0.3 % 02/16/2024 1:09 PM [facility] ABSOLUTE NEUTROPHILS 4.8 1.7 - 7.0 thou/cu mm 02/16/2024 1:09 PM [facility] ABSOLUTE LYMPHOCYTES 1.7 0.9 - 2.9 thou/cu mm 02/16/2024 1:09 PM [facility] ABSOLUTE MONOCYTES 0.4 <0.9 thou/cu mm 02/16/2024 1:09 PM [facility] ABSOLUTE EOSINOPHILS 0.3 <0.5 thou/cu mm 02/16/2024 1:09 PM [facility] ABSOLUTE BASOPHILS 0.0 <0.3 thou/cu mm 02/16/2024 1:09 PM [facility] Blood BLOOD SPECIMEN / Unknown Venipuncture / Unknown 02/16/2024 12:33 PM CDT 02/16/2024 12:43 PM CDT Joaquim ARZOLA HEMATOLOGY [facility] [address] [place] [address] * (ABNORMAL) URINALYSIS MICROSCOPIC (02/16/2024 11:54 AM CDT) RBC >100(A) 0-2, None Seen /HPF 02/16/2024 12:47 PM [facility] WBC 0-2 0-2, 3-5, None Seen /HPF 02/16/2024 12:47 PM [facility] BACTERIA Rare None Seen, Rare, Few Bacteria/H PF 02/16/2024 12:47 PM [facility] EPITHELIAL CELLS Few None Seen, Few Epi/HPF 02/16/2024 12:47 PM [facility] Urine URINE SPECIMEN / Unknown Non-Blood / Unknown 02/16/2024 11:54 AM CDT 02/16/2024 11:56 AM CDT Joaquim ARZOLA URINE [facility] [address] [place] [address] * (ABNORMAL) UA W/ SEDIMENT EXAM REFLEXED PER CRITERIA (02/16/2024 11:54 AM CDT) COLOR [place](A) Yellow Color 02/16/2024 12:45 PM [facility] CLARITY Slightly Cloudy(A) Clear Clarity 02/16/2024 12:45 PM [facility] SPECIFIC GRAVITY,URINE 1.020 1.010, 1.015, 1.020, 1.025 02/16/2024 12:45 PM [facility] PH,URINE 7.5 6.0, 7.0, 8.0, 5.5, 6.5, 7.5, 8.5 02/16/2024 12:45 PM [facility] UROBILINOGEN, QUALITATIVE Normal Normal EU/dl 02/16/2024 12:45 PM [facility] PROTEIN, URINE Negative Negative mg/dL 02/16/2024 12:45 PM [facility] GLUCOSE, URINE Negative Negative mg/dL 02/16/2024 12:45 PM [facility] KETONES,URINE Negative Negative mg/dL 02/16/2024 12:45 PM [facility] BILIRUBIN,URI NE Negative Negative 02/16/2024 12:45 PM CDT [facility] OCCULT BLOOD,URINE Large(A) Negative 02/16/2024 12:45 PM CDT [facility] NITRITE Negative Negative 02/16/2024 12:45 PM CDT [facility] LEUKOCYTE ESTERASE Negative Negative 02/16/2024 12:45 PM CDT [facility] Urine URINE SPECIMEN / Unknown Non-Blood / Unknown 02/16/2024 11:54 AM CDT 02/16/2024 11:56 AM CDT Joaquim ARZOLA URINE [facility] [address] [place] [address] * PHARMACOLOGIST THIN PREP PAP SCREEN IMAGED (06/17/2020 3:15 PM ANIMAL CARE ATTENDANT) Case Report Gynecologic Cytology Report ? Case: [id number] ? Authorizing Provider: ??Lise Nation CNM ? Collected: ? 06/17/2020 1515 ? Ordering Location: ? [facility] ?Received: ?06/18/2020 1745 ? First Screen: ?Alona Allison ? Specimen: ?PHARMACOLOGIST ThinPrep Vial Screening, Cervical/Vaginal ? 06/25/2020 12:20 PM ANIMAL CARE ATTENDANT [facility] INTERPRETATION/ RESULT NEGATIVE FOR INTRAEPITHELIAL LESION OR MALIGNANCY (NIL) (none) 06/25/2020 12:20 PM ANIMAL CARE ATTENDANT [facility] IMEN ADEQUACY Satisfactory for evaluation Endocervical component present 06/25/2020 12:20 PM ANIMAL CARE ATTENDANT [facility] HPV REQUEST HPV if ASCUS 06/25/2020 12:20 PM ANIMAL CARE ATTENDANT [facility] Additional Information 06/25/2020 12:20 PM ANIMAL CARE ATTENDANT [facility] Comment: Interpreted at [facility] - [address], [place] [address] Automated Review Successful 06/25/2020 12:20 PM ANIMAL CARE ATTENDANT [facility] Comment:Specimen processed s uccessfully by automated education technician device, ThinPrep Imaging System, [employer] Note The pap test is a screening technique, not a diagnostic procedure. It is used primarily to screen for squamous cancers and precursor lesions. Published studies have shown that it is subject to both false negative and false positive results. The pap test should not be used as the sole means to diagnose or exclude pre-malignant and malignant lesions. 06/25/2020 12:20 PM ANIMAL CARE ATTENDANT [facility] Other (Cervical/Vagina l) 06/17/2020 3:15 PM ANIMAL CARE ATTENDANT 06/18/2020 5:45 PM ANIMAL CARE ATTENDANT Lise Nation CNM PATHOLOGY/CYTOLOGY [facility] [address] [place] [address], [place] from Last 3 Months or Most Recently Relevant to Health Maintenance Care Teams Correspondence Renew Clerk Relationship Specialty Start Date End Date None . PCP - General 01/13/23 Pcp, No . 10/16/16 Pcp, No . 08/25/13
== END 2024-04-07 09:46 | disposition home or self-care (01) ==
LOC: NFLDREF 04-10 21:07
PROVIDERS: Visit Provider Advanced Practice Midwife
DX: O36.80X0 Pregnancy with inconclusive fetal viability, not applicable or unspecified (principal)
CPT/HCPCS: 84702

== ENCOUNTER 2024-04-14 10:06 | Outpatient (CLI) | payer MEDICAID, SELFPAY ==
--- OUTSIDE RECORDS SUMMARY | 2024-04-15 19:07 | XMS_ITS | Clinical Summary ---
Author Organization [facility] s & [facility] Address [place], [place] [address] Care Team Providers Care Manager Search Name Role Phone Pcp, No Unavailable Unavailable [...] CDT - 03/17/2024 4:07 PM CDT Emergency [facility] [address] [place] [address] Wanda Washington MD Vaginal bleeding (Primary Dx) Discharge Disposition: Home Self Care 03/17/2024 12:45 PM CDT Office Visit [facility] [address] [facility] [place] [address] Shelby Funes NP Vaginal Bleeding 03/17/2024 Travel 02/16/2024 11:42 AM CDT - 02/16/2024 1:30 PM CDT Emergency [facility] [address] [place] [address] Joaquim Bowers PA Miscarriage (Primary Dx) Discharge Disposition: Home Self Care 02/16/2024 Travel 02/16/2024 Nurse Triage [employer] [address] [facility] [place] [address] Crescencio Arias MD Vaginal Bleeding from Last [...] PER CRITERIA STAT 02/16/2024 11:54 AM CDT CORPORATE SERVICES MANAGER THIN PREP PAP SCREEN IMAGED Routine 06/17/2020 3:15 PM OPERATING COST CLERK from Last 3 Months or Most Recently [...] limits for newborns. 03/17/2024 2:11 PM CDT [facility] LARGE PLATELETS Present 03/17/2024 2:11 PM CDT [facility] Blood BLOOD SPECIMEN / Unknown Venipuncture / Unknown 03/17/2024 1:18 PM CDT 03/17/2024 1:27 PM CDT Wanda Washington MD HEMATOLOGY [facility] [address] [place] [address] * PLATELET ESTIMATE (03/17/2024 1:18 PM CDT) Only the most recent of2 resultswithin the time period is included. Pathologist [facility] PLATELET ESTIMATE Adequate Adequate, No estimate 03/17/2024 2:11 PM CDT [facility] Blood BLOOD SPECIMEN / Unknown Venipuncture / Unknown 03/17/2024 1:18 PM CDT 03/17/2024 1:27 PM CDT Wanda Washington MD HEMATOLOGY Performing Organization Address [facility]/ZIP Co de Phone Number [facility] [address] [place] [address] * BLOOD BANK [facility]TRA [facility] (03/17/2024 1:18 PM CDT) Only the most recent of2 resultswithin the time period is included. Blood BLOOD SPECIMEN / Unknown Venipuncture / Unknown 03/17/2024 1:18 PM CDT 03/17/2024 1:27 PM CDT Wanda Washington MD BLOOD BANK Performing Organization Address [facility]/ZIP Co de Phone Number [facility] [address] [place] [address] * (ABNORMAL) CBC W PLT NO DIFF (03/17/2024 1:18 PM CDT) Pathologist [facility] WHITE BLOOD COUNT 5.8 4.5 - 11.0 thou/cu mm 03/17/2024 2:11 PM T [facility] RED BLOOD COUNT 4.40 4.00 - 5.20 mil/cu mm 03/17/2024 2:11 PM [facility] HEMOGLOBIN 12.8 12.0 - 16.0 g/dL 03/17/2024 2:11 PM [facility] HEMATOCRIT 38.9 33.0 - 51.0 % 03/17/2024 2:11 PM [facility] MCV 88 80 - 100 fL 03/17/2024 2:11 PM T [facility] MCH 29.1 26.0 - 34.0 pg 03/17/2024 2:11 PM CDT [facility] MCHC 32.9 32.0 - 36.0 g/dL 03/17/2024 2:11 PM CDT [facility] RDW 12.8 11.5 - 15.5 % 03/17/2024 2:11 PM CDT [facility] PLATELET COUNT 208 140 - 440 thou/cu mm 03/17/2024 2:11 PM CDT [facility] MPV 13.8(H) 6.5 - 11.0 fL 03/17/2024 2:11 PM CDT [facility] Blood BLOOD SPECIMEN / Unknown Venipuncture / Unknown 03/17/2024 1:18 PM CDT 03/17/2024 1:27 PM CDT Wanda Washington MD HEMATOLOGY Performing Organization Address City/State/[facility] Co de Phone Number [facility] [address] [place] [address] * HCG BETA QUANT, (03/17/2024 1:18 PM CDT) Only the most recent of2 resultswithin the time period is included. HCG BETA QUANT,PREGNANC Y 8 mIU/mL 03/17/2024 2:04 PM CDT [facility] Blood BLOOD SPECIMEN / Unknown Venipuncture / Unknown 03/17/2024 1:18 PM CDT 03/17/2024 1:27 PM CDT Narrative [facility] - 03/17/2024 2:04 PM CDT Expected [...] prior to retesting. Wanda Washington MD CHEMISTRY [facility] [address] [place] [address] * (ABNORMAL) BASIC METABOLIC PANEL (03/17/2024 1:18 PM CDT) SODIUM 141 136 - 145 mmol/L 03/17/2024 1:51 PM [facility] POTASSIUM 3.6 3.5 - 5.1 mmol/L 03/17/2024 1:51 PM [facility] CHLORIDE 106 98 - 107 mmol/L 03/17/2024 1:51 PM [facility] CO2,TOTAL 25 22 - 29 mmol/L 03/17/2024 1:51 PM [facility] ANION GAP 10 5 - 18 03/17/2024 1:51 PM [facility] GLUCOSE 104(H) 70 - 99 mg/dL 03/17/2024 1:51 PM [facility] CALCIUM 8.9 8.6 - 10.0 mg/dL 03/17/2024 1:51 PM [facility] BUN 5(L) 6 - 20 mg/dL 03/17/2024 1:51 PM [facility] CREATININE 0.43(L) 0.50 - 0.90 mg/dL 03/17/2024 1:51 PM [facility] BUN/CREAT RATIO 12 10 - 20 1:51 PM [facility] eGFR >90 >90 mL/min/1.7 3m2 03/17/2024 1:51 PM [facility] Comment:As of 2021, eG FR [...] 1:27 PM CDT Wanda Washington MD CHEMISTRY [facility] [address] [place] [address] * (ABNORMAL) CBC WITH AUTO DIFFERENTIAL (02/16/2024 12:33 PM CDT) WHITE BLOOD COUNT 7.1 4.5 - 11.0 thou/cu mm 02/16/2024 1:09 PM [facility] RED BLOOD COUNT 4.69 4.00 - 5.20 mil/cu mm 02/16/2024 1:09 PM [facility] HEMOGLOBIN 13.7 12.0 - 16.0 g/dL 02/16/2024 1:09 PM [facility] HEMATOCRIT 41.8 33.0 - 51.0 % 02/16/2024 1:09 PM [facility] MCV 89 80 - 100 fL 02/16/2024 1:09 PM [facility] MCH 29.2 26.0 - 34.0 pg 02/16/2024 1:09 PM [facility] MCHC 32.8 32.0 - 36.0 g/dL 02/16/2024 1:09 PM [facility] RDW 13.4 11.5 - 15.5 % 02/16/2024 1:09 PM [facility] PLATELET COUNT 188 140 - 440 thou/cu mm 02/16/2024 1:09 PM [facility] MPV 13.7(H) 6.5 - 11.0 fL 02/16/2024 1:09 PM [facility] % NEUT 67.3 % 02/16/2024 1:09 PM [facility] % LYMPH 23.3 % 02/16/2024 1:09 PM [facility] % MONO 5.6 % 02/16/2024 1:09 PM [facility] % EOS 3.5 % 02/16/2024 1:09 PM [facility] % BASO 0.3 % 02/16/2024 1:09 PM [facility] ABSOLUTE NEUTROPHILS 4.8 1.7 - 7.0 thou/cu mm 02/16/2024 1:09 PM [facility] ABSOLUTE LYMPHOCYTES 1.7 0.9 - 2.9 thou/cu mm 02/16/2024 1:09 PM [facility] ABSOLUTE MONOCYTES 0.4 <0.9 thou/cu mm 02/16/2024 1:09 PM [facility] ABSOLUTE EOSINOPHILS 0.3 <0.5 thou/cu mm 02/16/2024 1:09 PM [facility] ABSOLUTE BASOPHILS 0.0 <0.3 thou/cu mm 02/16/2024 1:09 PM [facility] Blood BLOOD SPECIMEN / Unknown Venipuncture / Unknown 02/16/2024 12:33 PM CDT 02/16/2024 12:43 PM CDT Joaquim ARZOLA HEMATOLOGY [facility] [address] [place] [address] * (ABNORMAL) URINALYSIS MICROSCOPIC (02/16/2024 11:54 AM CDT) RBC >100(A) 0-2, None Seen /HPF 02/16/2024 12:47 PM [facility] WBC 0-2 0-2, 3-5, None Seen /HPF 02/16/2024 12:47 PM [facility] BACTERIA Rare None Seen, Rare, Few Bacteria/H PF 02/16/2024 12:47 PM [facility] EPITHELIAL CELLS Few None Seen, Few Epi/HPF 02/16/2024 12:47 PM [facility] Urine URINE SPECIMEN / Unknown Non-Blood / Unknown 02/16/2024 11:54 AM CDT 02/16/2024 11:56 AM CDT Joaquim ARZOLA URINE [facility] [address] [place] [address] * (ABNORMAL) UA W/ SEDIMENT EXAM REFLEXED PER CRITERIA (02/16/2024 11:54 AM CDT) COLOR [place](A) Yellow Color 02/16/2024 12:45 PM [facility] CLARITY Slightly Cloudy(A) Clear Clarity 02/16/2024 12:45 PM [facility] SPECIFIC GRAVITY,URINE 1.020 1.010, 1.015, 1.020, 1.025 02/16/2024 12:45 PM [facility] PH,URINE 7.5 6.0, 7.0, 8.0, 5.5, 6.5, 7.5, 8.5 02/16/2024 12:45 PM [facility] UROBILINOGEN, QUALITATIVE Normal Normal EU/dl 02/16/2024 12:45 PM [facility] PROTEIN, URINE Negative Negative mg/dL 02/16/2024 12:45 PM [facility] GLUCOSE, URINE Negative Negative mg/dL 02/16/2024 12:45 PM [facility] KETONES,URINE Negative Negative mg/dL 02/16/2024 12:45 PM [facility] BILIRUBIN,URI NE Negative Negative 02/16/2024 12:45 PM CDT [facility] OCCULT BLOOD,URINE Large(A) Negative 02/16/2024 12:45 PM CDT [facility] NITRITE Negative Negative 02/16/2024 12:45 PM CDT [facility] LEUKOCYTE ESTERASE Negative Negative 02/16/2024 12:45 PM CDT [facility] Urine URINE SPECIMEN / Unknown Non-Blood / Unknown 02/16/2024 11:54 AM CDT 02/16/2024 11:56 AM CDT Joaquim ARZOLA URINE [facility] [address] [place] [address] * CORPORATE SERVICES MANAGER THIN PREP PAP SCREEN IMAGED (06/17/2020 3:15 PM OPERATING COST CLERK) Case Report Gynecologic Cytology Report ? Case: [id number] ? Authorizing Provider: ??Lise Nation CNM ? Collected: ? 06/17/2020 1515 ? Ordering Location: ? [facility] ?Received: ?06/18/2020 1745 ? First Screen: ?Alona Allison ? Specimen: ?CORPORATE SERVICES MANAGER ThinPrep Vial Screening, Cervical/Vaginal ? 06/25/2020 12:20 PM OPERATING COST CLERK [facility] INTERPRETATION/ RESULT NEGATIVE FOR INTRAEPITHELIAL LESION OR MALIGNANCY (NIL) (none) 06/25/2020 12:20 PM OPERATING COST CLERK [facility] IMEN ADEQUACY Satisfactory for evaluation Endocervical component present 06/25/2020 12:20 PM OPERATING COST CLERK [facility] HPV REQUEST HPV if ASCUS 06/25/2020 12:20 PM OPERATING COST CLERK [facility] Additional Information 06/25/2020 12:20 PM OPERATING COST CLERK [facility] Comment: Interpreted at [facility] - [address], [place] [address] Automated Review Successful 06/25/2020 12:20 PM OPERATING COST CLERK [facility] Comment:Specimen processed s uccessfully by automated manager servicing device, ThinPrep Imaging System, [employer] Note The pap test is [...] pre-malignant and malignant lesions. 06/25/2020 12:20 PM OPERATING COST CLERK [facility] Other (Cervical/Vagina l) 06/17/2020 3:15 PM OPERATING COST CLERK 06/18/2020 5:45 PM OPERATING COST CLERK Lise Nation CNM PATHOLOGY/CYTOLOGY [facility] [address] [place] [address], [place] from Last 3 Months or Most Recently Relevant to Health Maintenance Care Teams Manager Search Relationship Specialty Start Date End Date None . PCP - General 01/13/23 Pcp, No . 10/16/16 Pcp, No . 08/25/13
== END 2024-04-14 10:07 | disposition home or self-care (01) ==
LOC: NFLDREF 04-15 19:06
PROVIDERS: Visit Provider Advanced Practice Midwife
DX: O36.80X0 Pregnancy with inconclusive fetal viability, not applicable or unspecified (principal)
CPT/HCPCS: 84702

== ENCOUNTER 2024-04-18 08:59 | Outpatient (CLI) | payer MEDICAID, SELFPAY ==
--- OUTSIDE RECORDS SUMMARY | 2024-04-18 09:01 | XMS_ITS | Clinical Summary ---
Author Organization [facility] s & [facility] Address [place], [place] [address] Care Team Providers Care Archival Records Clerk Name Role Phone Pcp, No Unavailable [...] [facility] [address] [place] [address] Wanda Washington MD Vaginal bleeding (Primary Dx) Discharge Disposition: Home Self Care 03/17/2024 12:45 PM CDT Office Visit [facility] [address] [place] [address] Shelby Funes NP Vaginal Bleeding 03/17/2024 Travel 02/16/2024 11:42 AM CDT - 02/16/2024 1:30 PM CDT Emergency [facility] [address] [place] [address] Joaquim Bowers PA Miscarriage (Primary Dx) Discharge Disposition: Home Self Care 02/16/2024 Travel 02/16/2024 Nurse Triage [facility] [address] [place] [address] Crescencio Arias MD Vaginal Bleeding from Last [...] PER CRITERIA STAT 02/16/2024 11:54 AM CDT PSYCHOSOCIAL REHABILITATION COUNSELOR THIN PREP PAP SCREEN IMAGED Routine 06/17/2020 3:15 PM PULL THROUGH HOOKER from Last 3 Months or Most Recently [...] limits for newborns. 03/17/2024 2:11 PM CDT [facility] LARGE PLATELETS Present 03/17/2024 2:11 PM CDT [facility] Blood BLOOD SPECIMEN / Unknown Venipuncture / Unknown 03/17/2024 1:18 PM CDT 03/17/2024 1:27 PM CDT Wanda Washington MD HEMATOLOGY [facility] [address] [place] [address] * PLATELET ESTIMATE (03/17/2024 1:18 PM CDT) Only the most recent of2 resultswithin the time period is included. Pathologist [facility] PLATELET ESTIMATE Adequate Adequate, No estimate 03/17/2024 2:11 PM CDT [facility] Blood BLOOD SPECIMEN / Unknown Venipuncture / Unknown 03/17/2024 1:18 PM CDT 03/17/2024 1:27 PM CDT Wanda Washington MD HEMATOLOGY Performing Organization Address [facility]/ZIP Co de Phone Number [facility] [address] [place] [address] * BLOOD BANK [facility]TRA [facility] (03/17/2024 1:18 PM CDT) Only the most recent of2 resultswithin the time period is included. Blood BLOOD SPECIMEN / Unknown Venipuncture / Unknown 03/17/2024 1:18 PM CDT 03/17/2024 1:27 PM CDT Wanda Washington MD BLOOD BANK Performing Organization Address [facility]/ZIP Co de Phone Number [facility] [address] [place] [address] * (ABNORMAL) CBC W PLT NO DIFF (03/17/2024 1:18 PM CDT) Pathologist [facility] WHITE BLOOD COUNT 5.8 4.5 - 11.0 thou/cu mm 03/17/2024 2:11 PM T [facility] RED BLOOD COUNT 4.40 4.00 - 5.20 mil/cu mm 03/17/2024 2:11 PM [facility] HEMOGLOBIN 12.8 12.0 - 16.0 g/dL 03/17/2024 2:11 PM [facility] HEMATOCRIT 38.9 33.0 - 51.0 % 03/17/2024 2:11 PM [facility] MCV 88 80 - 100 fL 03/17/2024 2:11 PM T [facility] MCH 29.1 26.0 - 34.0 pg 03/17/2024 2:11 PM CDT [facility] MCHC 32.9 32.0 - 36.0 g/dL 03/17/2024 2:11 PM CDT [facility] RDW 12.8 11.5 - 15.5 % 03/17/2024 2:11 PM CDT [facility] PLATELET COUNT 208 140 - 440 thou/cu mm 03/17/2024 2:11 PM CDT [facility] MPV 13.8(H) 6.5 - 11.0 fL 03/17/2024 2:11 PM CDT [facility] Blood BLOOD SPECIMEN / Unknown Venipuncture / Unknown 03/17/2024 1:18 PM CDT 03/17/2024 1:27 PM CDT Wanda Washington MD HEMATOLOGY Performing Organization Address City/State/[facility] Co de Phone Number [facility] [address] [place] [address] * HCG BETA QUANT, (03/17/2024 1:18 PM CDT) Only the most recent of2 resultswithin the time period is included. HCG BETA QUANT,PREGNANC Y 8 mIU/mL 03/17/2024 2:04 PM CDT [facility] Blood BLOOD SPECIMEN / Unknown Venipuncture / Unknown 03/17/2024 1:18 PM CDT 03/17/2024 1:27 PM CDT Narrative [facility] - 03/17/2024 2:04 PM CDT [...] prior to retesting. Wanda Washington MD CHEMISTRY [facility] [address] [place] [address] * (ABNORMAL) BASIC METABOLIC PANEL (03/17/2024 1:18 PM CDT) SODIUM 141 136 - 145 mmol/L 03/17/2024 1:51 PM [facility] POTASSIUM 3.6 3.5 - 5.1 mmol/L 03/17/2024 1:51 PM [facility] CHLORIDE 106 98 - 107 mmol/L 03/17/2024 1:51 PM [facility] CO2,TOTAL 25 22 - 29 mmol/L 03/17/2024 1:51 PM [facility] ANION GAP 10 5 - 18 03/17/2024 1:51 PM [facility] GLUCOSE 104(H) 70 - 99 mg/dL 03/17/2024 1:51 PM [facility] CALCIUM 8.9 8.6 - 10.0 mg/dL 03/17/2024 1:51 PM [facility] BUN 5(L) 6 - 20 mg/dL 03/17/2024 1:51 PM [facility] CREATININE 0.43(L) 0.50 - 0.90 mg/dL 03/17/2024 1:51 PM [facility] BUN/CREAT RATIO 12 10 - 20 1:51 PM [facility] eGFR >90 >90 mL/min/1.7 3m2 03/17/2024 1:51 PM [facility] Comment:As of 2021, eG FR is calculated by the CKD-EPI creatinine equation without race adjustment. ??eGFR can be influenced by muscle mass, exercise, and diet. ??The reported eGFR is an estimation only and is only applicable if the renal function is stable. Blood BLOOD SPECIMEN / Unknown Venipuncture / Unknown 03/17/2024 1:18 PM CDT 03/17/2024 1:27 PM CDT Wanda Washington MD CHEMISTRY [facility] [address] [place] [address] * (ABNORMAL) CBC WITH AUTO DIFFERENTIAL (02/16/2024 12:33 PM CDT) WHITE BLOOD COUNT 7.1 4.5 - 11.0 thou/cu mm 02/16/2024 1:09 PM [facility] RED BLOOD COUNT 4.69 4.00 - 5.20 mil/cu mm 02/16/2024 1:09 PM [facility] HEMOGLOBIN 13.7 12.0 - 16.0 g/dL 02/16/2024 1:09 PM [facility] HEMATOCRIT 41.8 33.0 - 51.0 % 02/16/2024 1:09 PM [facility] MCV 89 80 - 100 fL 02/16/2024 1:09 PM [facility] MCH 29.2 26.0 - 34.0 pg 02/16/2024 1:09 PM [facility] MCHC 32.8 32.0 - 36.0 g/dL 02/16/2024 1:09 PM [facility] RDW 13.4 11.5 - 15.5 % 02/16/2024 1:09 PM [facility] PLATELET COUNT 188 140 - 440 thou/cu mm 02/16/2024 1:09 PM [facility] MPV 13.7(H) 6.5 - 11.0 fL 02/16/2024 1:09 PM [facility] % NEUT 67.3 % 02/16/2024 1:09 PM [facility] % LYMPH 23.3 % 02/16/2024 1:09 PM [facility] % MONO 5.6 % 02/16/2024 1:09 PM [facility] % EOS 3.5 % 02/16/2024 1:09 PM [facility] % BASO 0.3 % 02/16/2024 1:09 PM [facility] ABSOLUTE NEUTROPHILS 4.8 1.7 - 7.0 thou/cu mm 02/16/2024 1:09 PM [facility] ABSOLUTE LYMPHOCYTES 1.7 0.9 - 2.9 thou/cu mm 02/16/2024 1:09 PM [facility] ABSOLUTE MONOCYTES 0.4 <0.9 thou/cu mm 02/16/2024 1:09 PM [facility] ABSOLUTE EOSINOPHILS 0.3 <0.5 thou/cu mm 02/16/2024 1:09 PM [facility] ABSOLUTE BASOPHILS 0.0 <0.3 thou/cu mm 02/16/2024 1:09 PM [facility] Blood BLOOD SPECIMEN / Unknown Venipuncture / Unknown 02/16/2024 12:33 PM CDT 02/16/2024 12:43 PM CDT Joaquim ARZOLA HEMATOLOGY [facility] [address] [place] [address] * (ABNORMAL) URINALYSIS MICROSCOPIC (02/16/2024 11:54 AM CDT) RBC >100(A) 0-2, None Seen /HPF 02/16/2024 12:47 PM [facility] WBC 0-2 0-2, 3-5, None Seen /HPF 02/16/2024 12:47 PM [facility] BACTERIA Rare None Seen, Rare, Few Bacteria/H PF 02/16/2024 12:47 PM [facility] EPITHELIAL CELLS Few None Seen, Few Epi/HPF 02/16/2024 12:47 PM [facility] Urine URINE SPECIMEN / Unknown Non-Blood / Unknown 02/16/2024 11:54 AM CDT 02/16/2024 11:56 AM CDT Joaquim ARZOLA URINE [facility] [address] [place] [address] * (ABNORMAL) UA W/ SEDIMENT EXAM REFLEXED PER CRITERIA (02/16/2024 11:54 AM CDT) COLOR [place](A) Yellow Color 02/16/2024 12:45 PM [facility] CLARITY Slightly Cloudy(A) Clear Clarity 02/16/2024 12:45 PM [facility] SPECIFIC GRAVITY,URINE 1.020 1.010, 1.015, 1.020, 1.025 02/16/2024 12:45 PM [facility] PH,URINE 7.5 6.0, 7.0, 8.0, 5.5, 6.5, 7.5, 8.5 02/16/2024 12:45 PM [facility] UROBILINOGEN, QUALITATIVE Normal Normal EU/dl 02/16/2024 12:45 PM [facility] PROTEIN, URINE Negative Negative mg/dL 02/16/2024 12:45 PM [facility] GLUCOSE, URINE Negative Negative mg/dL 02/16/2024 12:45 PM [facility] KETONES,URINE Negative Negative mg/dL 02/16/2024 12:45 PM [facility] BILIRUBIN,URI NE Negative Negative 02/16/2024 12:45 PM CDT [facility] OCCULT BLOOD,URINE Large(A) Negative 02/16/2024 12:45 PM CDT [facility] NITRITE Negative Negative 02/16/2024 12:45 PM CDT [facility] LEUKOCYTE ESTERASE Negative Negative 02/16/2024 12:45 PM CDT [facility] Urine URINE SPECIMEN / Unknown Non-Blood / Unknown 02/16/2024 11:54 AM CDT 02/16/2024 11:56 AM CDT Joaquim ARZOLA URINE [facility] [address] [place] [address] * PSYCHOSOCIAL REHABILITATION COUNSELOR THIN PREP PAP SCREEN IMAGED (06/17/2020 3:15 PM [facility]) Case Report Gynecologic Cytology Report ? Case: [id number] ? Authorizing Provider: ??Lise Nation CNM ? Collected: ? 06/17/2020 1515 ? Ordering Location: ? [facility] ?Received: ?06/18/2020 1745 ? First Screen: ?Alona Allison ? Specimen: ?PSYCHOSOCIAL REHABILITATION COUNSELOR ThinPrep Vial Screening, Cervical/Vaginal ? 06/25/2020 12:20 PM [facility] INTERPRETATION/ RESULT NEGATIVE FOR INTRAEPITHELIAL LESION OR MALIGNANCY (NIL) (none) 06/25/2020 12:20 PM [facility] IMEN ADEQUACY Satisfactory for evaluation Endocervical component present 06/25/2020 12:20 PM [facility] HPV REQUEST HPV if ASCUS 06/25/2020 12:20 PM [facility] Additional Information 06/25/2020 12:20 PM [facility] Comment: Interpreted at [facility] - [address], [place] [address] Automated Review Successful 06/25/2020 12:20 PM [facility] Comment:Specimen processed s uccessfully by automated pig furnace operator device, [employer] Imaging System, [employer] Note The pap test is a screening technique, not a diagnostic procedure. It is used primarily to screen for squamous cancers and precursor lesions. Published studies have shown that it is subject to both false negative and false positive results. The pap test should not be used as the sole means to diagnose or exclude pre-malignant and malignant lesions. 06/25/2020 12:[address] [facility] Other (Cervical/Vagina l) 06/17/2020 3:15 PM [facility] 06/18/2020 5:45 PM [facility] Lise Nation CNM PATHOLOGY/CYTOLOGY [facility] [address] [place] [address], [place] from Last 3 Months or Most Recently Relevant to Health Maintenance Care Teams Archival Records Clerk Relationship Specialty Start Date End Date None . PCP - General 01/13/23 Pcp, No . 10/16/16 Pcp, No . 08/25/13
--- NOTE | 2024-04-18 09:15 | CRLHL7_ITS ---
For Patients: As a result of the Century Cures Act, medical imaging exams and procedure reports are released immediately into your electronic medical record. You may view this report before your referring provider. If you have questions, please contact your health care provider. CLINICAL HISTORY: with inconclusive findings TECHNIQUE: 2D major scale and color Doppler images were acquired of the pelvis using a transvaginal approach. Comparison 04/05/2024 FINDINGS: Moderately large volume fluid in the posterior cul-de-sac noted with numerous reticular echoes consistent with blood products. This is new compared to the prior study. Bladder is incompletely distended. No pole. No intrauterine gestational sac. Ovaries appear normal. IMPRESSION: Moderately large volume of blood products within the cul-de-sac in the setting of rising beta HCG concerning for ruptured ectopic. Dictated by Anjel Dyer MD @ 04/18/2024 10:19:25 AM (Electronically Signed)
== END 2024-04-18 09:00 | disposition home or self-care (01) ==
LOC: US 08:59
PROVIDERS: Visit Provider Advanced Practice Midwife
DX: O36.80X0 Pregnancy with inconclusive fetal viability, not applicable or unspecified (principal); O00.90 Unspecified ectopic pregnancy without intrauterine pregnancy; R10.31 Right lower quadrant pain
CPT/HCPCS: 76817

== ENCOUNTER 2024-04-18 11:39 | Day surgery (SDC) | payer MEDICAID, SELFPAY ==
[2024-04-18] VITALS (12 sets, daily range): BP systolic 98–134; BP diastolic 55–71; PULSE 72–95; RESP 16–18; TEMP 36.2–36.7; O2SAT 95–98; BMI 35.6
--- OUTSIDE RECORDS SUMMARY | 2024-04-18 11:43 | XMS_ITS | Clinical Summary ---
Author Organization [facility] Address [place], [place] [address] Care Team Providers Care Chairman & Co Founder Name Role Phone Pcp, No Unavailable Unavailable [...] CDT - 03/17/2024 4:07 PM CDT Emergency [facility] [address] [place] [address] Wanda Washington MD Vaginal bleeding (Primary Dx) Discharge Disposition: Home Self Care 03/17/2024 12:45 PM CDT Office Visit [facility] [address] [place] [address] Shelby Funes NP Vaginal Bleeding 03/17/2024 Travel 02/16/2024 11:42 AM CDT - 02/16/2024 1:30 PM CDT Emergency [facility] [address] [place] [address] Joaquim Bowers PA Miscarriage (Primary Dx) Discharge Disposition: Home Self Care 02/16/2024 Travel 02/16/[address] [facility] [address] [place] [address] Crescencio Arias MD Vaginal Bleeding from Last [...] PER CRITERIA STAT 02/16/2024 11:54 AM CDT INTERNATIONAL SALES REPRESENTATIVE THIN PREP PAP SCREEN IMAGED Routine 06/17/2020 3:15 PM PETROLEUM INSPECTOR SUPERVISOR from Last 3 Months or Most Recently [...] limits for newborns. 03/17/2024 2:11 PM CDT [facility] LARGE PLATELETS Present 03/17/2024 2:11 PM CDT [facility] Blood BLOOD SPECIMEN / Unknown Venipuncture / Unknown 03/17/2024 1:18 PM CDT 03/17/2024 1:27 PM CDT Wanda Washington MD HEMATOLOGY [facility] [address] [place] [address] * PLATELET ESTIMATE (03/17/2024 1:18 PM CDT) Only the most recent of2 resultswithin the time period is included. Pathologist [facility] PLATELET ESTIMATE Adequate Adequate, No estimate 03/17/2024 2:11 PM CDT [facility] Blood BLOOD SPECIMEN / Unknown Venipuncture / Unknown 03/17/2024 1:18 PM CDT 03/17/2024 1:27 PM CDT Wanda Washington MD HEMATOLOGY Performing Organization Address [facility]/ZIP Co de Phone Number [facility] [address] [place] [address] * BLOOD BANK EXTRA [facility] (03/17/2024 1:18 PM CDT) Only the most recent of2 resultswithin the time period is included. Blood BLOOD SPECIMEN / Unknown Venipuncture / Unknown 03/17/2024 1:18 PM CDT 03/17/2024 1:27 PM CDT Wanda Washington MD BLOOD BANK Performing Organization Address [facility]/ZIP Co de Phone Number [facility] [address] [place] [address] * (ABNORMAL) CBC W PLT NO DIFF (03/17/2024 1:18 PM CDT) Pathologist [facility] WHITE BLOOD COUNT 5.8 4.5 - 11.0 thou/cu mm 03/17/2024 2:11 PM T [facility] RED BLOOD COUNT 4.40 4.00 - 5.20 mil/cu mm 03/17/2024 2:11 PM [facility] HEMOGLOBIN 12.8 12.0 - 16.0 g/dL 03/17/2024 2:11 PM [facility] HEMATOCRIT 38.9 33.0 - 51.0 % 03/17/2024 2:11 PM [facility] MCV 88 80 - 100 fL 03/17/2024 2:11 PM T [facility] MCH 29.1 26.0 - 34.0 pg 03/17/2024 2:11 PM CDT [facility] MCHC 32.9 32.0 - 36.0 g/dL 03/17/2024 2:11 PM CDT [facility] RDW 12.8 11.5 - 15.5 % 03/17/2024 2:11 PM CDT [facility] PLATELET COUNT 208 140 - 440 thou/cu mm 03/17/2024 2:11 PM CDT [facility] MPV 13.8(H) 6.5 - 11.0 fL 03/17/2024 2:11 PM CDT [facility] Blood BLOOD SPECIMEN / Unknown Venipuncture / Unknown 03/17/2024 1:18 PM CDT 03/17/2024 1:27 PM CDT Wanda Washington MD HEMATOLOGY Performing Organization Address City/State/[facility] Co de Phone Number [facility] [address] [place] [address] * HCG BETA QUANT, (03/17/2024 1:18 PM CDT) Only the most recent of2 resultswithin the time period is included. HCG BETA QUANT,PREGNANC Y 8 mIU/mL 03/17/2024 2:04 PM CDT [facility] Blood BLOOD SPECIMEN / Unknown Venipuncture / Unknown 03/17/2024 1:18 PM CDT 03/17/2024 1:27 PM CDT Narrative [facility] - 03/17/2024 2:04 PM [...] prior to retesting. Wanda Washington MD CHEMISTRY [facility] [address] [place] [address] * (ABNORMAL) BASIC METABOLIC PANEL (03/17/2024 1:18 PM CDT) SODIUM 141 136 - 145 mmol/L 03/17/2024 1:51 PM [facility] POTASSIUM 3.6 3.5 - 5.1 mmol/L 03/17/2024 1:51 PM [facility] CHLORIDE 106 98 - 107 mmol/L 03/17/2024 1:51 PM [facility] CO2,TOTAL 25 22 - 29 mmol/L 03/17/2024 1:51 PM [facility] ANION GAP 10 5 - 18 03/17/2024 1:51 PM [facility] GLUCOSE 104(H) 70 - 99 mg/dL 03/17/2024 1:51 PM [facility] CALCIUM 8.9 8.6 - 10.0 mg/dL 03/17/2024 1:51 PM [facility] BUN 5(L) 6 - 20 mg/dL 03/17/2024 1:51 PM [facility] CREATININE 0.43(L) 0.50 - 0.90 mg/dL 03/17/2024 1:51 PM [facility] BUN/CREAT RATIO 12 10 - 20 1:51 PM [facility] eGFR >90 >90 mL/min/1.7 3m2 03/17/2024 1:51 PM [facility] Comment:As of 2021, eG FR is calculated by the CKD-EPI creatinine equation without race adjustment. ??eGFR can be influenced by muscle mass, exercise, and diet. ??The reported eGFR is an estimation only and is only applicable if the renal function is stable. Blood BLOOD SPECIMEN / Unknown Venipuncture / Unknown 03/17/2024 1:18 PM CDT 03/17/2024 1:27 PM CDT Wanda Washington MD CHEMISTRY [facility] [address] [place] [address] * (ABNORMAL) CBC WITH AUTO DIFFERENTIAL (02/16/2024 12:33 PM CDT) WHITE BLOOD COUNT 7.1 4.5 - 11.0 thou/cu mm 02/16/2024 1:09 PM [facility] RED BLOOD COUNT 4.69 4.00 - 5.20 mil/cu mm 02/16/2024 1:09 PM [facility] HEMOGLOBIN 13.7 12.0 - 16.0 g/dL 02/16/2024 1:09 PM [facility] HEMATOCRIT 41.8 33.0 - 51.0 % 02/16/2024 1:09 PM [facility] MCV 89 80 - 100 fL 02/16/2024 1:09 PM [facility] MCH 29.2 26.0 - 34.0 pg 02/16/2024 1:09 PM [facility] MCHC 32.8 32.0 - 36.0 g/dL 02/16/2024 1:09 PM [facility] RDW 13.4 11.5 - 15.5 % 02/16/2024 1:09 PM [facility] PLATELET COUNT 188 140 - 440 thou/cu mm 02/16/2024 1:09 PM [facility] MPV 13.7(H) 6.5 - 11.0 fL 02/16/2024 1:09 PM [facility] % NEUT 67.3 % 02/16/2024 1:09 PM [facility] % LYMPH 23.3 % 02/16/2024 1:09 PM [facility] % MONO 5.6 % 02/16/2024 1:09 PM [facility] % EOS 3.5 % 02/16/2024 1:09 PM [facility] % BASO 0.3 % 02/16/2024 1:09 PM [facility] ABSOLUTE NEUTROPHILS 4.8 1.7 - 7.0 thou/cu mm 02/16/2024 1:09 PM [facility] ABSOLUTE LYMPHOCYTES 1.7 0.9 - 2.9 thou/cu mm 02/16/2024 1:09 PM [facility] ABSOLUTE MONOCYTES 0.4 <0.9 thou/cu mm 02/16/2024 1:09 PM [facility] ABSOLUTE EOSINOPHILS 0.3 <0.5 thou/cu mm 02/16/2024 1:09 PM [facility] ABSOLUTE BASOPHILS 0.0 <0.3 thou/cu mm 02/16/2024 1:09 PM [facility] Blood BLOOD SPECIMEN / Unknown Venipuncture / Unknown 02/16/2024 12:33 PM CDT 02/16/2024 12:43 PM CDT Joaquim ARZOLA HEMATOLOGY [facility] [address] [place] [address] * (ABNORMAL) URINALYSIS MICROSCOPIC (02/16/2024 11:54 AM CDT) RBC >100(A) 0-2, None Seen /HPF 02/16/2024 12:47 PM [facility] WBC 0-2 0-2, 3-5, None Seen /HPF 02/16/2024 12:47 PM [facility] BACTERIA Rare None Seen, Rare, Few Bacteria/H PF 02/16/2024 12:47 PM [facility] EPITHELIAL CELLS Few None Seen, Few Epi/HPF 02/16/2024 12:47 PM [facility] Urine URINE SPECIMEN / Unknown Non-Blood / Unknown 02/16/2024 11:54 AM CDT 02/16/2024 11:56 AM CDT Joaquim ARZOLA URINE [facility] [address] [place] [address] * (ABNORMAL) UA W/ SEDIMENT EXAM REFLEXED PER CRITERIA (02/16/2024 11:54 AM CDT) COLOR [place](A) Yellow Color 02/16/2024 12:45 PM [facility] CLARITY Slightly Cloudy(A) Clear Clarity 02/16/2024 12:45 PM [facility] SPECIFIC GRAVITY,URINE 1.020 1.010, 1.015, 1.020, 1.025 02/16/2024 12:45 PM [facility] PH,URINE 7.5 6.0, 7.0, 8.0, 5.5, 6.5, 7.5, 8.5 02/16/2024 12:45 PM [facility] UROBILINOGEN, QUALITATIVE Normal Normal EU/dl 02/16/2024 12:45 PM [facility] PROTEIN, URINE Negative Negative mg/dL 02/16/2024 12:45 PM [facility] GLUCOSE, URINE Negative Negative mg/dL 02/16/2024 12:45 PM [facility] KETONES,URINE Negative Negative mg/dL 02/16/2024 12:45 PM [facility] BILIRUBIN,URI NE Negative Negative 02/16/2024 12:45 PM CDT [facility] OCCULT BLOOD,URINE Large(A) Negative 02/16/2024 12:45 PM CDT [facility] NITRITE Negative Negative 02/16/2024 12:45 PM CDT [facility] LEUKOCYTE ESTERASE Negative Negative 02/16/2024 12:45 PM CDT [facility] Urine URINE SPECIMEN / Unknown Non-Blood / Unknown 02/16/2024 11:54 AM CDT 02/16/2024 11:56 AM CDT Joaquim ARZOLA URINE [facility] [address] [place] [address] * INTERNATIONAL SALES REPRESENTATIVE THIN PREP PAP SCREEN IMAGED (06/17/2020 3:15 PM PETROLEUM INSPECTOR SUPERVISOR) Case Report Gynecologic Cytology Report ? Case: [id number] ? Authorizing Provider: ??Lise Nation CNM ? Collected: ? 06/17/2020 1515 ? Ordering Location: ? [facility] ?Received: ?06/18/2020 1745 ? First Screen: ?Alona Allison ? Specimen: ?INTERNATIONAL SALES REPRESENTATIVE ThinPrep Vial Screening, Cervical/Vaginal ? 06/25/2020 12:20 PM PETROLEUM INSPECTOR SUPERVISOR [facility] INTERPRETATION/ RESULT NEGATIVE FOR INTRAEPITHELIAL LESION OR MALIGNANCY (NIL) (none) 06/25/2020 12:20 PM PETROLEUM INSPECTOR SUPERVISOR [facility] IMEN ADEQUACY Satisfactory for evaluation Endocervical component present 06/25/2020 12:20 PM PETROLEUM INSPECTOR SUPERVISOR [facility] HPV REQUEST HPV if ASCUS 06/25/2020 12:20 PM PETROLEUM INSPECTOR SUPERVISOR [facility] Additional Information 06/25/2020 12:20 PM PETROLEUM INSPECTOR SUPERVISOR [facility] Comment: Interpreted at [facility] - [address], [place] [address] Automated Review Successful 06/25/2020 12:20 PM PETROLEUM INSPECTOR SUPERVISOR [facility] Comment:Specimen processed s uccessfully by automated physician assistant primary care device, ThinPrep Imaging System, [employer] Note The pap test is a screening technique, not a diagnostic procedure. It is used primarily to screen for squamous cancers and precursor lesions. Published studies have shown that it is subject to both false negative and false positive results. The pap test should not be used as the sole means to diagnose or exclude pre-malignant and malignant lesions. 06/25/2020 12:20 PM PETROLEUM INSPECTOR SUPERVISOR [facility] Other (Cervical/Vagina l) 06/17/2020 3:15 PM PETROLEUM INSPECTOR SUPERVISOR 06/18/2020 5:45 PM PETROLEUM INSPECTOR SUPERVISOR Lise Nation CNM PATHOLOGY/CYTOLOGY [facility] [address] [place] [address], [place] from Last 3 Months or Most Recently Relevant to Health Maintenance Care Teams Chairman & Co Founder Relationship Specialty Start Date End Date None . PCP - General 01/13/23 Pcp, No . 10/16/16 Pcp, No . 08/25/13
[2024-04-18] MEDS: 0.9 % SODIUM CHLORIDE 500 ML 500 ML 100 ML IV (12:13)
[2024-04-18] MEDS: SODIUM CHLORIDE 0.9 % (FLUSH) 10 ML SYRINGE IVF (12:14)
[2024-04-18 12:25] LABS: Hemoglobin* 12.3 gm/dL (12.0-16.0)
[2024-04-18] MEDS: CEFAZOLIN 2 GM INJ IVP (14:18)
--- NOTE | 2024-04-18 14:31 | W.ANESCHARGE ---
Anesthesia Charges Start Date/Time Anesthesia Start Date: 04/18/24 Anesthesia Start Time: 13:57 Stop Date/Time Anesthesia Stop Date: 04/18/24 Anesthesia Stop Time: 15:25 Summary Emergency: MDA
[2024-04-18] MEDS: BUPIVACAINE 0.25% 30 ML INJECTION (14:59)
[2024-04-18] MEDS: BACITRACIN OINTMENT BULK TUBE 1 APPLIC TOPICAL (15:01)
--- NOTE | 2024-04-18 15:09 | W.PM.GYNPROC ---
Procedure Note Date of procedure: 04/18/24 Will [facility] bill your pro fee for this procedure?: Yes Pre-op diagnosis: 1. Right tubal ectopic . Post-op diagnosis: 1. Right tubal ectopic . 2. Omental adhesions. Procedure: 1. Laparoscopic right salpingectomy. 2. Lysis of adhesions. Anesthesia: GETA Complications: None. Surgeon: Danae Dodson MD Soft Mud Molder: Sushila Calzada Estimated blood loss (mL): 75 Urine Output (mL): 200 Pathology: specimen obtained, sent to pathology (Right fallopian tube containing ectopic .) Condition: stable Disposition: same day Findings: Approximately 75 mL blood and clots in the abdomen and pelvis. Dilated right fallopian tube in the midsection, firm, likely containing ectopic tissue. Omental adhesions noted between the omentum and anterior abdominal wall at the umbilicus. Adhesions tethering the uterus to the pelvis on the left, with shortening of the left round ligament. Normal-appearing appendix. Procedure Description: After obtaining informed consent, the patient was taken to the operating room where general anesthesia was obtained without difficulty. She was prepared and draped in the normal sterile fashion in the low dorsal lithotomy position. A Loyola catheter was sterilely inserted into the bladder and left to gravity drainage. A medium Graves open-sided speculum was introduced into the vagina. The cervix was visualized and grasped along its anterior lip with a single-toothed tenaculum. A Vox Mobilelka uterine manipulator was placed without difficulty. The tenaculum and speculum were removed. I then changed gloves and my attention was turned to the abdomen. The inferior aspect of the umbilical fold was injected with 0.25% Marcaine plain. A 5 mm vertical incision was then made within the umbilical fold using a scalpel. The subcutaneous tissues were bluntly dissected with a Gosia clamp to the fascia. The fascia was grasped with 2 small Hasmukh clamps and elevated. The fascia was incised with Santoyo scissors. A 5 mm laparoscopic port with CO2 gas set to a 5 mmHg was inserted through the fascial defect and pushed through the peritoneum. The trocar was removed leaving the sleeve in place. The CO2 gas flow was turned to high flow to achieve pneumoperitoneum. The 5 mm laparoscope was used then to carefully inspect the abdomen and pelvis with findings noted above. Pictures were taken for documentation purposes. The patient was placed in Trendelenburg positioning. Two additional ports were placed in the right (11 mm) and left (5 mm) lower quadrants under direct visualization after first anesthetizing the skin and fascia with 0.25% Marcaine plain. The uterus was elevated using the uterine manipulator. The bowels were gently pushed from the pelvis cephalad. A suction operations manager station was used to remove the blood and clots from the abdomen and pelvis. The right fallopian tube was elevated. The LigaSure device was used to seal the vascular and broad ligament attachments, and the tube was divided from the uterus at the cornua. I attempted to remove the right fallopian tube through the right lower quadrant 11 mm port, but the dilated section was too firm and too large to fit into the port. It was grasped with a grasper and partially pulled into the port, and then the port was removed while removing the graspers and the specimen altogether. The 11 mm port was replaced into the abdomen. The abdomen and pelvis were copiously irrigated. Hemostasis was visualized. A Aditya-Kumar device was used to reapproximate the fascia in the right lower quadrant after removing the 11 mm port. All remaining instruments were then removed under direct visualization. Pneumoperitoneum was allowed to escape. The skin at all 3 port sites was closed in a subcuticular fashion with 4-0 Vicryl. Surgical glue was then placed over the incisions. The uterine manipulator and Loyola catheter were removed. The patient tolerated the procedure well. Sponge, lap, and needle counts were correct x2. The patient was taken to the recovery room awake and in stable condition. She received 2 g IV Ancef preoperatively and 30 mg IV Toradol at the conclusion of the procedure.
[2024-04-18] MEDS: fentaNYL 100 MCG/2 ML inj 50 MCG IVP (15:32)
--- NOTE | 2024-04-18 15:36 | P.ANES_ITS ---
Anesthesia Charges Start Date/Time Anesthesia Start Date: 04/18/24 Anesthesia Start Time: 13:57 Stop Date/Time Anesthesia Stop Date: 04/18/24 Anesthesia Stop Time: 15:25 Summary Emergency: RECORD PRESS OPERATOR
[2024-04-18] MEDS: OXYCODONE 5 MG TABLET PO (16:49)
== END 2024-04-18 17:06 | disposition home or self-care (01) ==
PROVIDERS: Visit Provider Obstetrics & Gynecology
PROC: (CPT 59150; principal; 2024-04-18 12:30)
DX: O00.101 Right tubal pregnancy without intrauterine pregnancy (principal); O99.611 Diseases of the digestive system complicating pregnancy, first trimester; K66.0 Peritoneal adhesions (postprocedural) (postinfection)
CPT/HCPCS: 59151; 49329; 00840; 36415; 76817; 85018; 86850; 86900; 86901; 88305; 99140; A9270; J0330; J0665; J0690; J1100; J1171; J1630; J1885; J2250; J2405; J2704; J3010; J3490; J7030

== ENCOUNTER 2024-05-12 09:15 | Outpatient (CLI) | payer MEDICAID, SELFPAY ==
--- OUTSIDE RECORDS SUMMARY | 2024-05-12 09:20 | XMS_ITS | Clinical Summary ---
Author Organization [facility] Address [place], [place] [address] Care Team Providers Care Lumber Loader Name Role Phone Pcp, No Unavailable Unavailable [...] Encounters Date Type Department Care Team Description 04/18/2024 Lab Requisition [facility] [phone] Danae Dodson MD 03/17/2024 12:56 PM CDT - 03/17/2024 4:[address] [facility] [address] [facility] [place] [address] Wanda Washington MD Vaginal bleeding (Primary Dx) Discharge Disposition: Home Self Care 03/17/2024 12:45 PM CDT Office Visit [facility] [address] [place] [address] Shelby Funes NP Vaginal Bleeding 03/17/2024 Travel 02/16/2024 11:42 AM CDT - 02/16/2024 1:30 PM CDT Emergency [facility] [address] [place] [address] Joaquim Bowers PA Miscarriage (Primary Dx) Discharge Disposition: Home Self Care 02/16/2024 Travel 02/16/2024 Nurse Triage [facility] [address] [place] [address] Crescencio Arias MD Vaginal Bleeding from Last [...] 80 03/17/2024 2:13 PM CDT Temperature 36.7 C (98 F) 03/17/2024 2:13 PM CDT Respiratory Rate 20 [...] 11/05/2030 11/05/2020, 11/2018, 07/18/2004, Additional history exists Tdap Completed 11/05/2020, 11/10/2018 Pneumococcal series for age 6-64 Aged Out No longer eligible based on patient's age to complete this topic Procedures Procedure Name Priority Date/Time Associated Diagnosis Comments PATH TISSUE EXAM Routine 04/18/2024 2:45 PM INDUSTRIAL PIPEFITTER JOURNEYMAN LAB TRACKING EVENT Routine 04/18/2024 12 :00 PM INDUSTRIAL PIPEFITTER JOURNEYMAN US OB 1ST TRI SINGLE TA AND [...] PER CRITERIA STAT 02/16/2024 11:54 AM CDT AEROPLANE PILOT THIN PREP PAP SCREEN IMAGED Routine 06/17/2020 3:15 PM INDUSTRIAL PIPEFITTER JOURNEYMAN from Last 3 Months or Most Recently Relevant to Health Maintenance Results * PATH TISSUE EXAM (04/18/2024 2:45 PM INDUSTRIAL PIPEFITTER JOURNEYMAN) Case Report Pathology Report Case: [id number] Authorizing Provider: Danae Dodson MD Collected: 04/18/2024 1445 Ordering Location: [facility] Received: 04/19/2024 0831 Pathologist: Anjel Feliz MD Specimen: Right Fallopian Tube 04/21/2024 12:10 PM INDUSTRIAL PIPEFITTER JOURNEYMAN [facility] Final Diagnosis A) RIGHT FALLOPIAN TUBE, SALPINGECTOMY: 1. Segment of fallopian tube with intraluminal chorionic villi consistent with an ectopic tubal 2. Somatic tissues are not present 3. Negative for abnormal trophoblastic proliferation and malignancy 04/21/2024 12:10 PM INDUSTRIAL PIPEFITTER JOURNEYMAN [facility] Clinical Information Right ectopic 04/21/2024 12:10 PM INDUSTRIAL PIPEFITTER JOURNEYMAN [facility] Gross Description A) Received in formalin, labeled with the patient's name and right fallopian tube, is a fimbriated segments of fallopian tube measuring 7 cm in length by ranging from 0.6 to 1.2 cm in diameter. The cut surfaces reveal a dilated lumen filled with clotted blood. No villous or somatic tissues are identified. No discrete lesions are identified. The specimen is entirely submitted in 5 cassettes. JPW 04/19/2024 04/21/2024 12:10 PM INDUSTRIAL PIPEFITTER JOURNEYMAN [facility]- ENTRAL LAB[facility]ATORY Microscopic Description The final diagnosis is based on microscopic examination of appropriate sections of all specimens. 04/21/2024 12:10 PM INDUSTRIAL PIPEFITTER JOURNEYMAN [facility]- ENTRAL LABORATORY Additional Information Interpreted at [facility] - [address], [place] [address] 04/21/2024 12:10 PM INDUSTRIAL PIPEFITTER JOURNEYMAN [facility]- ENTRAL LABORAT[facility] Other (Right Fallopian Tube) 04/18/2024 2:45 PM INDUSTRIAL PIPEFITTER JOURNEYMAN 04/19/2024 8:31 AM INDUSTRIAL PIPEFITTER JOURNEYMAN Danae Dodson MD PATHOLOGY/CYTOLOGY Performing Organization Address [facility] Co de Phone Number [facility] [address] [place] [address], [place] * LAB TRACKING EVENT (04/18/2024 12:00 PM INDUSTRIAL PIPEFITTER JOURNEYMAN) Other (Other) Client Collect / Unknown 04/18/2024 12:00 PM INDUSTRIAL PIPEFITTER JOURNEYMAN 04/18/2024 10:23 PM INDUSTRIAL PIPEFITTER JOURNEYMAN Danae Dodson MD LAB BILL ONLY Performing Organization Address [facility] Co de Phone Number [facility] [address] [place] [address], [place] * US OB 1ST TRI SINGLE TA AND TV (03/17/2024 3:13 PM CDT) Anatomical Region Laterality Modality Ultrasound 03/17/2024 3:26 PM CDT Narrative 03/17/2024 3:26 PM CDT For Patients: As a result of the Century Cures Act, medical imaging exams and procedure reports are released immediately into your electronic medical record. You may view this report before your referring provider. If you have questions, please contact your health [...] For Patients: As a result of the Cures Act, medical imagingexams and procedure reports [...] 3:26:49 PM (Electronically Signed) Wanda Washington MD [place] * RED CELL MORPHOLOGY (03/17/2024 1:18 PM CDT) Only the most recent of2 resultswithin the time period is included. RBC COMMENT RBC morphology appears normal RBC morphology appears normal, RBC morphology within normal limits for newborns. 03/17/2024 2:11 PM CDT [facility] LARGE PLATELETS Present 03/17/2024 2:11 PM CDT [facility] Blood BLOOD SPECIMEN / Unknown Venipuncture / Unknown 03/17/2024 1:18 PM CDT 03/17/2024 1:27 PM CDT Wanda Washington MD HEMATOLOGY Performing Organization Address City/[facility]/ZIP Co de Phone Number [facility] [address] [place] [address] * PLATELET ESTIMATE (03/17/2024 1:18 PM CDT) Only the most recent of2 resultswithin the time period is included. Pathologist [facility] PLATELET ESTIMATE Adequate Adequate, No estimate 03/17/2024 2:11 PM CDT [facility] Blood BLOOD SPECIMEN / Unknown Venipuncture / Unknown 03/17/2024 1:18 PM CDT 03/17/2024 1:27 PM CDT Wanda Washington MD HEMATOLOGY Performing Organization Address City/[facility]/ZIP Co de Phone Number [facility] [address] [place] [address] * BLOOD BANK EXTRA LAVENDER TOP (03/17/2024 1:18 PM CDT) Only the most recent of2 resultswithin the time period is included. Blood BLOOD SPECIMEN / Unknown Venipuncture / Unknown 03/17/2024 1:18 PM CDT 03/17/2024 1:27 PM CDT Wanda Washington MD BLOOD BANK Performing Organization Address City/[facility]/ZIP Co de Phone Number [facility] [address] [place] [address] * (ABNORMAL) CBC W PLT NO DIFF (03/17/2024 1:18 PM CDT) WHITE BLOOD COUNT 5.8 4.5 - 11.0 thou/cu mm 03/17/2024 2:11 PM CDT [facility] RED BLOOD COUNT 4.40 4.00 - 5.20 mil/cu mm 03/17/2024 2:11 PM CDT [facility] HEMOGLOBIN 12.8 12.0 - 16.0 g/dL 03/17/2024 2:11 PM CDT [facility] HEMATOCRIT 38.9 33.0 - 51.0 % 03/17/2024 2:11 PM T [facility] MCV 88 80 - 100 fL 03/17/2024 2:11 PM T [facility] MCH 29.1 26.0 - 34.0 pg 03/17/2024 2:11 PM T [facility] MCHC 32.9 32.0 - 36.0 g/dL 03/17/2024 2:11 PM T [facility] RDW 12.8 11.5 - 15.5 % 03/17/2024 2:11 PM T [facility] PLATELET COUNT 208 140 - 440 thou/cu mm 03/17/2024 2:11 PM T [facility] MPV 13.8(H) 6.5 - 11.0 fL 03/17/2024 2:11 PM [facility] Blood BLOOD SPECIMEN / Unknown Venipuncture / Unknown 03/17/2024 1:18 PM CDT 03/17/2024 1:27 PM CDT Wanda Washington MD HEMATOLOGY [facility] [address] [place] [address] * HCG BETA QUANT, (03/17/2024 1:18 PM CDT) Only the most recent of2 resultswithin the time period is included. Pathologist [facility] HCG BETA QUANT,PREGNANC Y 8 mIU/mL 03/17/2024 2:04 PM CDT [facility] Blood BLOOD SPECIMEN / Unknown Venipuncture / Unknown 03/17/2024 1:18 PM CDT 03/17/2024 1:27 PM CDT [facility] - 03/17/2024 2:04 PM CDT Expected [...] clinically significant interference for this test assay. If interference is suspected, it is strongly recommended that biotin is discontinued for at least one week prior to retesting. Wanda Washington MD CHEMISTRY [facility] [address] [place] [address] * (ABNORMAL) BASIC METABOLIC PANEL (03/17/2024 1:18 PM CDT) SODIUM 141 136 - 145 mmol/L 03/17/2024 1:51 PM CDT [facility] POTASSIUM 3.6 3.5 - 5.1 mmol/L 03/17/2024 1:51 PM CDT [facility] CHLORIDE 106 98 - 107 mmol/L 03/17/2024 1:51 PM CDT [facility] CO2,TOTAL 25 22 - 29 mmol/L 03/17/2024 1:51 PM CDT [facility] ANION GAP 10 5 - 18 03/17/2024 1:51 PM T [facility] GLUCOSE 104(H) 70 - 99 mg/dL 03/17/2024 1:51 PM CDT [facility] CALCIUM 8.9 8.6 - 10.0 mg/dL 03/17/2024 1:51 PM T [facility] BUN 5(L) 6 - 20 mg/dL 03/17/2024 1:51 PM T [facility] CREATININE 0.43(L) 0.50 - 0.90 mg/dL 03/17/2024 1:51 PM T [facility] BUN/CREAT RATIO 12 10 - 20 1:51 PM T [facility] eGFR >90 >90 mL/min/1.7 3m2 03/17/2024 1:51 PM [facility] Comment:As of 2021, eG FR is calculated by the CKD-EPI creatinine equation without race adjustment. eGFR can be influenced by muscle mass, exercise, and diet. The reported eGFR is an estimation only and is only applicable if the renal function is stable. Blood BLOOD SPECIMEN / Unknown Venipuncture / Unknown 03/17/2024 1:18 PM CDT 03/17/2024 1:27 PM CDT Wanda Washington MD CHEMISTRY [facility] [address] [place] [address] * (ABNORMAL) CBC WITH AUTO DIFFERENTIAL (02/16/2024 12:33 PM CDT) WHITE BLOOD COUNT 7.1 4.5 - 11.0 thou/cu mm 02/16/2024 1:09 PM CDT [facility] RED BLOOD COUNT 4.69 4.00 - 5.20 mil/cu mm 02/16/2024 1:09 PM T [facility] HEMOGLOBIN 13.7 12.0 - 16.0 g/dL 02/16/2024 1:09 PM [facility] HEMATOCRIT 41.8 33.0 - 51.0 % 02/16/2024 1:09 PM [facility] MCV 89 80 - 100 fL 02/16/2024 1:09 PM [facility] MCH 29.2 26.0 - 34.0 pg 02/16/2024 1:09 PM [facility] MCHC 32.8 32.0 - 36.0 g/dL 02/16/2024 1:09 PM [facility] RDW 13.4 11.5 - 15.5 % 02/16/2024 1:09 PM [facility] PLATELET COUNT 188 140 - 440 thou/cu mm 02/16/2024 1:09 PM [facility] MPV 13.7(H) 6.5 - 11.0 fL 02/16/2024 1:09 PM [facility] % NEUT 67.3 % 02/16/2024 1:09 PM [facility] % LYMPH 23.3 % 02/16/2024 1:09 PM [facility] % MONO 5.6 % 02/16/2024 1:09 PM [facility] % EOS 3.5 % 02/16/2024 1:09 PM [facility] % BASO 0.3 % 02/16/2024 1:09 PM [facility] ABSOLUTE NEUTROPHILS 4.8 1.7 - 7.0 thou/cu mm 02/16/2024 1:09 PM [facility] ABSOLUTE LYMPHOCYTES 1.7 0.9 - 2.9 thou/cu mm 02/16/2024 1:09 PM [facility] ABSOLUTE MONOCYTES 0.4 <0.9 thou/cu mm 02/16/2024 1:09 PM [facility] ABSOLUTE EOSINOPHILS 0.3 <0.5 thou/cu mm 02/16/2024 1:09 PM [facility] ABSOLUTE BASOPHILS 0.0 <0.3 thou/cu mm 02/16/2024 1:09 PM CDT [facility] Blood BLOOD SPECIMEN / Unknown Venipuncture / Unknown 02/16/2024 12:33 PM CDT 02/16/2024 12:43 PM CDT Joaquim ARZOLA HEMATOLOGY Performing Organization Address [facility] de Phone Number [facility] [address] [place] [address] * (ABNORMAL) URINALYSIS MICROSCOPIC (02/16/2024 11:54 AM CDT) RBC >100(A) 0-2, None Seen /HPF 02/16/2024 12:47 PM CDT [facility] WBC 0-2 0-2, 3-5, None Seen /HPF 02/16/2024 12:47 PM T [facility] BACTERIA Rare None Seen, Rare, Few Bacteria/H PF 02/16/2024 12:47 PM T [facility] EPITHELIAL CELLS Few None Seen, Few Epi/HPF 02/16/2024 12:47 PM T [facility] Urine URINE SPECIMEN / Unknown Non-Blood / Unknown 02/16/2024 11:54 AM CDT 02/16/2024 11:56 AM CDT Joaquim ARZOLA URINE Performing Organization Address [facility] Co de Phone Number [facility] [address] [place] [address] * (ABNORMAL) UA W/ SEDIMENT EXAM REFLEXED PER CRITERIA (02/16/2024 11:54 AM CDT) COLOR [place](A) Yellow Color 02/16/2024 12:45 PM CDT [facility] CLARITY Slightly Cloudy(A) Clear Clarity 02/16/2024 12:45 PM CDT [facility] SPECIFIC GRAVITY,URINE 1.020 1.010, 1.015, 1.020, 1.025 02/16/2024 12:45 PM [facility] PH,URINE 7.5 6.0, 7.0, 8.0, 5.5, 6.5, 7.5, 8.5 02/16/2024 12:45 PM [facility] UROBILINOGEN, QUALITATIVE Normal Normal EU/dl 02/16/2024 12:45 PM [facility] PROTEIN, URINE Negative Negative mg/dL 02/16/2024 12:45 PM [facility] GLUCOSE, URINE Negative Negative mg/dL 02/16/2024 12:45 PM [facility] KETONES,URINE Negative Negative mg/dL 02/16/2024 12:45 PM [facility] BILIRUBIN,URI NE Negative Negative 02/16/2024 12:45 PM [facility] OCCULT BLOOD,URINE Large(A) Negative 02/16/2024 12:45 PM [facility] NITRITE Negative Negative 02/16/2024 12:45 PM [facility] LEUKOCYTE ESTERASE Negative Negative 02/16/2024 12:45 PM [facility] Urine URINE SPECIMEN / Unknown Non-Blood / Unknown 02/16/2024 11:54 AM CDT 02/16/2024 11:56 AM T Joaquim ARZOLA URINE [facility] [address] [place] [address] * AEROPLANE PILOT THIN PREP PAP SCREEN IMAGED (06/17/2020 3:15 PM INDUSTRIAL PIPEFITTER JOURNEYMAN) Case Report Gynecologic Cytology Report Case: [id number] Authorizing Provider: Lise Nation CNM Collected: 06/17/2020 1515 Ordering Location: [facility] Received: 06/18/2020 1743 First Screen: Alona Allison Specimen: AEROPLANE PILOT ThinPrep Vial Screening, Cervical/Vaginal 06/25/2020 12:20 PM INDUSTRIAL PIPEFITTER JOURNEYMAN [facility]-C ENTRAL LABORATORY INTERPRETATION/ RESULT NEGATIVE FOR INTRAEPITHELIAL LESION OR MALIGNANCY (NIL) (none) 06/25/2020 12:20 PM INDUSTRIAL PIPEFITTER JOURNEYMAN [facility] IMEN ADEQUACY Satisfactory for evaluation Endocervical component present 06/25/2020 12:20 PM INDUSTRIAL PIPEFITTER JOURNEYMAN [facility] HPV REQUEST HPV if ASCUS 06/25/2020 12:20 PM INDUSTRIAL PIPEFITTER JOURNEYMAN [facility] Additional Information 06/25/2020 12:20 PM INDUSTRIAL PIPEFITTER JOURNEYMAN [facility] Comment: Interpreted at [facility] - [address], [place] [address] Automated Review Successful 06/25/2020 12:20 PM INDUSTRIAL PIPEFITTER JOURNEYMAN [facility] Comment:Specimen processed s uccessfully by automated senior internal auditor device, ThinPrep Imaging System, [employer] Note The pap test is a screening technique, not a diagnostic procedure. It is used primarily to screen for squamous cancers and precursor lesions. Published studies have shown that it is subject to both false negative and false positive results. The pap test should not be used as the sole means to diagnose or exclude pre-malignant and malignant lesions. 06/25/2020 12:20 PM INDUSTRIAL PIPEFITTER JOURNEYMAN [facility] Other (Cervical/Vagina l) 06/17/2020 3:15 PM INDUSTRIAL PIPEFITTER JOURNEYMAN 06/18/2020 5:45 PM INDUSTRIAL PIPEFITTER JOURNEYMAN Lise Nation CNM PATHOLOGY/CYTOLOGY [facility] [address] [place] [address], [place] from Last 3 Months or Most Recently Relevant to Health Maintenance Care Teams Lumber Loader Relationship Specialty Start Date End Date None . PCP - General 01/13/23 Pcp, No . 10/16/16 Pcp, No . 08/25/13
== END 2024-05-12 09:16 | disposition home or self-care (01) ==
PROVIDERS: Visit Provider Obstetrics & Gynecology
DX: N96 Recurrent pregnancy loss (principal)
CPT/HCPCS: 82947; 84439; 85520; 85525; 85598; 85610; 85613; 85670; 85730; 86147

== ENCOUNTER 2024-07-07 08:22 | Outpatient (CLI) | payer MEDICAID, SELFPAY | END 2024-07-07 08:23 | disposition home or self-care (01) | LOC: NFLDREF 08:22 | PROVIDERS: Visit Provider Obstetrics & Gynecology | DX: Z32.01 Encounter for pregnancy test, result positive (principal) | CPT/HCPCS: 84702 ==

== ENCOUNTER 2024-07-10 11:10 | Outpatient (CLI) | payer MEDICAID, SELFPAY | END 2024-07-10 11:11 | disposition home or self-care (01) | LOC: NFLDREF 07-12 00:59 | PROVIDERS: Visit Provider Obstetrics & Gynecology | DX: Z32.01 Encounter for pregnancy test, result positive (principal) | CPT/HCPCS: 84702 ==

== ENCOUNTER 2024-07-14 09:58 | Outpatient (CLI) | payer MEDICAID, SELFPAY | END 2024-07-14 09:59 | disposition home or self-care (01) | LOC: NFLDREF 07-21 02:25 | PROVIDERS: Visit Provider Obstetrics & Gynecology | DX: N96 Recurrent pregnancy loss (principal) | CPT/HCPCS: 84702 ==

== ENCOUNTER 2024-07-17 09:02 | Outpatient (CLI) | payer MEDICAID, SELFPAY ==
--- NOTE | 2024-07-17 09:15 | CRLHL7_ITS ---
For Patients: As a result of the Century Cures Act, medical imaging exams and procedure reports are released immediately into your electronic medical record. You may view this report before your referring provider. If you have questions, please contact your health care provider. INDICATION: H/o recent ruptured ectopic COMPARISON: 04/18/2024 TECHNIQUE: Real-time major-scale imaging of the pelvis was performed. Transvaginal. FINDINGS: Intrauterine gestational sac appears to be present measuring 8 millimeters, 5 weeks 4 days. No yolk sac or pole. Normal left ovary. Simple cyst right ovary measures 2.5 x 1.6 x 1.8 cm. No excess pelvic free fluid. scar noted. No ectopic. IMPRESSION: Intrauterine gestational sac measuring 5 weeks 4 days without yolk sac or pole. No ectopic. Dictated by Anjel Dyer MD @ 07/17/2024 11:47:40 AM (Electronically Signed)
== END 2024-07-17 09:03 | disposition home or self-care (01) ==
PROVIDERS: Visit Provider Obstetrics & Gynecology
DX: O36.80X0 Pregnancy with inconclusive fetal viability, not applicable or unspecified (principal)
CPT/HCPCS: 76817

== ENCOUNTER 2024-08-10 12:43 | Outpatient (CLI) | payer MEDICAID, SELFPAY | END 2024-08-10 12:44 | disposition home or self-care (01) | LOC: US 12:45 | PROVIDERS: Visit Provider Obstetrics & Gynecology | DX: Z34.91 Encounter for supervision of normal pregnancy, unspecified, first trimester (principal); Z3A.08 8 weeks gestation of pregnancy | CPT/HCPCS: 76817 ==

== ENCOUNTER 2024-08-10 14:24 | Outpatient (CLI) | payer MEDICAID, SELFPAY | END 2024-08-10 14:25 | disposition home or self-care (01) | PROVIDERS: Visit Provider Physician Assistant | DX: Z34.91 Encounter for supervision of normal pregnancy, unspecified, first trimester (principal); Z3A.08 8 weeks gestation of pregnancy | CPT/HCPCS: 83020; 83021; 84443; 85660; 86592; 86703; 86704; 86706; 86762; 86787; 86803; 86850; 86900; 86901; 87086; 87340 ==

== ENCOUNTER 2024-08-18 09:02 | Emergency (ER) | payer MEDICAID, SELFPAY ==
--- OUTSIDE RECORDS SUMMARY | 2024-08-18 09:04 | XMS_ITS | Clinical Summary ---
Author Organization [employer] [facility] Address [address] [place] [address] Care Team Providers Care Training And Development Head Name Role Phone Pcp, No Unavailable Unavailable Pcp, No Unavailable Unavailable None Primary Care Provider Unavailabl e Allergies No known active allergies Medications HYDROcodone-ac etaminophen (NORCO) 5-325 mg per tabletIndicati ons:Dental infection,Pain , dental Take 1 Tablet by mouth 3 times daily if needed for Pain. Max acetaminophen dose: 4000 mg in 24 hrs. 15 Tablet 2 Active benzonatate (TESSALON) 100 mg capsuleIndicat ions:Acute bronchitis with symptoms > 10 days Take 1-2 Capsules (100-200 mg) by mouth 3 times daily if needed for Cough. 30 Capsule 3 Active albuterol HFA (PRO-AIR; VENTOLIN; PROVENTIL) 90 mcg/actuation inhalerIndicat ions:Acute bronchitis with symptoms > 10 days Inhale 1-2 Puffs by mouth every 4 hours if needed for Shortness Of Breath or Wheezing. 1 Each 3 Active Active Problems Problem Noted Date Diagnosed Date Irregular menses Immunizations Immunization Administration Dates Next Due DTaP 12/19/1998, 6,03/02/1995,12/07,1994 [...] Housing in the Last Year 1 01/13/2023 Interpersonal Safety Answer Date Record ed Are you being hit, kicked, p ushed or yelled at (see row info)? No 03/17/2024 Interpersonal Safety Abuse 12 - 18 Not on file 03/17/2024 Interpersonal Safety Ambulatory Vulnerability No t on file 03/17/2024 Comments No Sex and Gender Information Value Date Recorded Sex Assigned at Female 02/16/2024 12:01 PM CDT Legal Sex Female 3:30 PM BEATER ENGINEER HELPER Gender Identity Female 02/16/2024 12:01 PM CDT [...] COVID-19 vaccine series ( season) 2024 Influenza Vaccine (#1) 2024 Tetanus booster 11/05/2030 11/05/2020, 0611/2018, 07/18/2004, Additional history exists Tdap Completed 11/05/2020, 11/10/2018 Pneumococcal series for age 6-49 Aged Out No longer eligible based on patient's age to complete this topic Procedures Procedure Name Priority Date/Time Associated Diagnosis Comments SHAREPOINT ENGINEER THIN PREP PAP SCREEN IMAGED Routine 06/17/2020 3:15 PM BEATER ENGINEER HELPER from Last 3 Months or Most Recently Relevant to Health Maintenance Results * SHAREPOINT ENGINEER THIN PREP PAP SCREEN IMAGED (06/17/2020 3:15 PM BEATER ENGINEER HELPER) Case Report Gynecologic Cytology Report Case: [id number] Authorizing Provider: Lise Nation CNM Collected: 06/17/2020 1515 Ordering Location: [facility] Received: 06/18/2020 1745 First Screen: Alona Allison Specimen: SHAREPOINT ENGINEER ThinPrep Vial Screening, Cervical/Vaginal 06/25/2020 12:20 PM BEATER ENGINEER HELPER [facility] INTERPRETATION/ RESULT NEGATIVE FOR INTRAEPITHELIAL LESION OR MALIGNANCY (NIL) (none) 06/25/2020 12:20 PM BEATER ENGINEER HELPER [facility] IMEN ADEQUACY Satisfactory for evaluation Endocervical component present 06/25/2020 12:20 PM BEATER ENGINEER HELPER [facility] HPV REQUEST HPV if ASCUS 06/25/2020 12:20 PM BEATER ENGINEER HELPER [facility] Additional Information 06/25/2020 12:20 PM BEATER ENGINEER HELPER [facility] Comment: Interpreted at [facility] - [address] [place], [place] [address]e [address] [facility] [address], [place] [address] Automated Review Successful 06/25/2020 12:20 PM BEATER ENGINEER HELPER [facility] Comment:Specimen processed s uccessfully by automated pillowcase cutter device, ThinPrep Imaging System, [employer] Note The pap test is a screening technique, not a diagnostic procedure. It is used primarily to screen for squamous cancers and precursor lesions. Published studies have shown that it is subject to both false negative and false positive results. The pap test should not be used as the sole means to diagnose or exclude pre-malignant and malignant lesions. 06/25/2020 12:20 PM BEATER ENGINEER HELPER [facility] Other (Cervical/Vagina l) 06/17/2020 3:15 PM BEATER ENGINEER HELPER 06/18/2020 5:45 PM BEATER ENGINEER HELPER us Lise Nation CNM PATHOLOGY/CYTOLOGY Final Re sult [facility] LAB[facility]ORY [address] [place] [address], from Last 3 Months or Most Recently Relevant to Health Maintenance Insurance [id number] [place] [id number] [facility]LY [facility] [id number] [place] [id number] [id number] [place] [address] [place] [address] * Guarantor: RITO DAMON/RHONDA [place] Account Type Relation to Patient Date of Phone Billing Address [facility] Health/[employer] [address] [place] [address] [id number] [place] [place] [address] Care Teams Training And Development Head Relationship Specialty Start Date End Date None . PCP - General 01/13/23 Pcp, No . 10/16/16 Pcp, No . 08/25/13
[2024-08-18 09:09] VITALS: BP 121/76; PULSE 118; RESP 18; TEMP 37.3; O2SAT 99; BMI 36.7
--- NOTE | 2024-08-18 09:30 | ED_ITS ---
HPI - General Adult General Chief complaint: Weakness Stated complaint: weakness Time Seen by Provider: 08/18/24 09:08 History of Present Illness HPI narrative: Patient is a E 29-year-old woman who is on her 8th . She has had number of miscarriages tubal pregnancies and has 2 live children. She is currently 10 weeks . She comes in today with general weakness malaise body aches fatigue. She has had no abdominal pain. No vaginal discharge or bleeding. She has had no nausea no vomiting no chest pain no shortness of breath. Patient states she just does not feel well. Really no other localizing signs or symptoms. Related Data Home Medications ?Medication ?Instructions ?Recorded ?Confirmed docosahexaenoic acid 200 mg mg PO 07/17/24 08/10/24 capsule ( DHA) Previous Rx's ?Medication ?Instructions ?Recorded oseltamivir 75 mg capsule (Tamiflu) 75 mg PO BID 5 days #10 caps 08/18/24 Allergies Allergy/AdvReac Type Severity Reaction Status Date / Time No Known Drug Allergies Allergy Verified 08/18/24 09:08 Review of Systems Status of ROS: Reports: 10 or more systems reviewed and unremarkable except as noted in History and below [facility] Medical History History of ectopic ?Z87.59 - Personal history of other complications of , childbirth and the puerperium (ICD-10) of unknown anatomic location ?O36.80X0 - with inconclusive viability, not applicable or unspecified (ICD-10) Complete miscarriage (02/18/24) ?O03.9 - Complete or unspecified spontaneous without complication (ICD-10) Surgical History History of unilateral salpingectomy ?Z90.79 - Acquired absence of other genital organ(s) (ICD-10) History of 2 sections ?Z98.891 - History of uterine scar from previous surgery (ICD-10) Family History Mother Uterine cancer High blood pressure Diabetes Father High blood pressure High cholesterol Diabetes Social History Narrative: Stay at home mom. High School diploma. Exercises twice weekly. Denies tobacco, alcohol, or illicit drug use. feels safe in home. . Has 2 kids. What is your current living situation?: I presently have a place to live Problems where you live: no known problems In the past 12 months, utilities in danger of being shut off: no In past 12 months, lack of transportation kept you from medical appts, meetings, work, or getting things needed for daily living: no In the past 12 mos, have been you worried that your food would run out before you had money to buy more?: never true In the past 12 mos, the food you bought just didn't last and you didn't have money to buy more?: never true Smoking Status: Never smoker Do you use any of these nicotine containing products: None Second hand tobacco smoke exposure: No How often do you have a drink containing alcohol: never AUDIT-C Alcohol total score: 0 Non-prescribed substance use: denies use Caffeine: Yes How often does anyone, including family, friends and others, physically hurt you : never How often does anyone, including family, friends and others, insult or talk down to you: never How often does anyone, including family, friends and others, threaten you with harm: never How often does anyone, including family, friends and others, scream or curse at you: never service: No Exam Narrative: Exam Narrative: EXAM GENERAL: Patient appears comfortable and well. EYES: No scleral icterus. ENT: Tympanic membranes and oropharynx normal. THYROID: no thyroid nodules or thyromegaly. LYMPH: No supraclavicular or cervical lymphadenopathy. SKIN: Visible skin seen during exam normal or with benign process only. EXT: No dependent lower extremity pedal edema. HEART: Regular rhythm mildly tachycardic. LUNGS: Clear to auscultation bilaterally with no crackles or wheezes. ABD: Soft, non tender, non distended. PSYCH: Good eye contact, speech is not pressured. Const: Vital Signs, click to edit/add: Vital Signs - 24 hr 08/18/24 09:09 08/18/24 10:07 Temperature 99.2 F Pulse Rate 107 H Pulse Rate [Pulse Oximeter] 118 H Respiratory Rate 18 20 Blood Pressure 116/58 L Blood Pressure [Ri ght Upper Arm] 121/76 Pulse Oximetry 99 97 Oxygen Delivery Me thod Room Air Room Air Course Course ED Course: Patient seen examined. CBC comprehensive metabolic panel UA pending. 1 L normal saline given. Vital Signs Vital signs: Initial Vital Signs Temperature 99.2 F 08/18/24 09:09 Temperature Source Temporal Artery Scan 08/18/24 09:09 Pulse Rate 118 H 08/18/24 09:09 Pulse Rhythm Regular 08/18/24 09:09 Respiratory Rate 18 08/18/24 09:09 Blood Pressure 121/76 08/18/24 09:09 Blood Pressure Mean 91 08/18/24 09:09 Blood Pressure Position Sitting 08/18/24 09:09 Pulse Oximetry 99 08/18/24 09:09 Oxygen Delivery Method Room Air 08/18/24 09:09 Vital Signs Temperature 99.2 F 08/18/24 09:09 Pulse Rate 118 H 08/18/24 09:09 Respiratory Rate 18 08/18/24 09:09 Blood Pressure 121/76 08/18/24 09:09 Pulse Oximetry 99 08/18/24 09:09 Oxygen Delivery Method Room Air 08/18/24 09:09 Temperature 99.2 F 08/18/24 09:09 Pulse Rate 107 H 08/18/24 10:07 Respiratory Rate 20 08/18/24 10:07 Blood Pressure 116/58 L 08/18/24 10:07 Pulse Oximetry 97 08/18/24 10:07 Oxygen Delivery Method Room Air 08/18/24 10:07 Medications Administered Medications: Discontinued Medications Generic Name Dose Route Start Last Admin Trade Name Freq PRN Reason Stop Dose Admin Sodium Chloride 1,000 mls @ 1,000 mls/hr 08/18/24 09:29 08/18/24 10:42 0.9 % Sodium Chloride 1000 Ml IV 08/18/24 10:28 Infused .Q1H ADAIR Infusion Medical Decision Making MDM Narrative Medical decision making narrative: Patient is a 29-year-old woman who comes in not feeling well. She is in her 1st trimester of her . I did do a bedside ultrasound and the fetus appears to be in the uterus. She has no vaginal bleeding or discharge. She has reasonable labs. She is positive for influenza B. I did give her L normal saline she feels somewhat better. I will be treating with Tamiflu Tylenol rest and primary care follow-up. Lab Data Labs: Lab Results 08/18/24 08/18/24 08/18/24 Range/Units 09:20 09:30 09:50 WBC 5.03 (4.50-11.00) K/uL RBC 4.26 (4.00-5.20) m/uL Hgb 12.3 (12.0-16.0) gm/dL Hct 37.4 (33.0-51.0) % MCV 88 (80-100) fL MCH 29 (26-34) pg MCHC 33 (32-36) gm/dL RDW Coeff of Brittni 13.4 (11.5-15.5) % Plt Count 183 (140-440) K/uL Neut % (Auto) 87.2 H (42.0-72.0) % Lymph % (Auto) 4.2 L (20-44) % [place] % (Auto) 7.4 (0.0-11.0) % Eos % (Auto) 0.4 (0.0-7.0) % Baso % (Auto) 0.6 (0.0-3.0) % Neut # (Auto) 4.40 (1.7-7.0) K/uL Lymph # (Auto) 0.20 L (0.90-2.90) K/uL [place] # (Auto) 0.40 (0.00-0.90) K/UL Eos # (Auto) 0.02 (0.00-0.50) K/uL Baso # (Auto) 0.03 (0.00-0.30) K/uL Abs Immat Gran (auto) 0.01 (0.00-0.30) K/uL Imm/Tot Granulo (auto) 0.2 % Sodium 135 (135-149) mmol/L Potassium 3.9 (3.6-5.1) mmol/L Chloride 101 (96-114) mmol/L Carbon Dioxide 21 (20-32) mmol/L Anion Gap 13 (7-15) mEq/L BUN 4 L (5-24) mg/dL Creatinine 0.4 L (0.5-1.5) mg/dL Estimated Creat Clear 162.65 Estimated GFR 136 ml/min Glucose 90 (60-115) mg/dL Calcium 8.6 (8.4-10.6) mg/dL Total Bilirubin 0.2 (0.1-1.5) mg/dL AST 23 (12-35) U/L ALT 16 (4-35) U/L Alkaline Phosphatase 74 (40-150) U/L Total Protein 7.3 (6.0-8.3) g/dL Albumin 4.1 (3.3-5.0) g/dL Urine Color Yellow (Yellow) Urine Appearance Clear (Clear) Urine pH 7.0 (5.0-8.5) Ur Specific Hawley 1.015 (1.000-1.030) Urine Protein Negative (Negative) Urine Glucose (UA) Negative (Negative) Urine Ketones 1+ A (Negative) Urine Blood Trace-intact A (Negative) Urine Nitrite Negative (Negative) Urine Bilirubin Negative (Negative) Urine Urobilinogen 0.2 (0.2-1.0) Ur Leukocyte Esterase Negative (Negative) Urine RBC 0-2 (0-2) Urine WBC 2-5 (0-5) Ur Squamous Epith Cells Few (None-Few) Urine Bacteria Moderate A (None) SARS-CoV-2 (PCR) Negative SARS-CoV-2 (Negative) Influenza Type A (PCR) Negative PCR FLU A (Negative) Influenza Type B (PCR) POSITIVE PCR FLU B A (Negative) RSV (PCR) Negative PCR RSV (Negative) Discharge Plan Discharge Clinical Impression: Influenza Patient Disposition: Home, Self-Care Condition: Stable Instructions: Influenza (ED) Additional Instructions: Continue current medications Tamiflu as directed Tylenol as needed Hydration Rest Prescriptions: New oseltamivir [Tamiflu] 75 mg capsule 75 mg PO BID 5 Days Qty: 10 0RF No Action DHA 200 mg capsule PO Follow Up/Referrals: Provider,Not a Local [Primary Care Provider] - Stand Alone Forms: [employer] Info Instructions
[2024-08-18 09:38] LABS: Appearance Urine Clear (Clear); Bilirubin Urine Negative (Negative); Blood Urine Trace-intact (Negative); Color Urine Yellow (Yellow); Glucose Urine Negative (Negative); Ketones Urine 1+ (Negative); Leukocyte Esterase Urine Negative (Negative); Nitrite Urine Negative (Negative); Protein Urine Negative (Negative); Specific Gravity Urine 1.015 (1.000-1.030); Urobilinogen Urine 0.2 (0.2-1.0)
[2024-08-18 09:53] LABS: Bacteria Urine Moderate; RBC Urine 0-2 (0-2); Squamous Epithelial Cell Urine Few (None-Few)
[2024-08-18] MEDS: 0.9 % SODIUM CHLORIDE 1000 ml 1,000 ML IV (09:58)
[2024-08-18 10:03] LABS: PCR FLU A Negative PCR FLU A (Negative); PCR FLU B POSITIVE PCR FLU B (Negative); PCR RSV Negative PCR RSV (Negative); SARS PCR* Negative SARS-CoV-2 (Negative)
[2024-08-18 10:07] VITALS: BP 116/58; PULSE 107; RESP 20; O2SAT 97
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
[2024-08-18 10:13] LABS: Basophils Absolute Auto 0.03 K/uL (0.00-0.30); Basophils Percent Auto 0.6 % (0.0-3.0); Eosinophils Absolute Auto 0.02 K/uL (0.00-0.50); Eosinophils Percent Auto 0.4 % (0.0-7.0); Hematocrit 37.4 % (33.0-51.0); Hemoglobin* 12.3 gm/dL (12.0-16.0); Immature Granulocytes Abs Auto 0.01 K/uL (0.00-0.30); Immature Granulocytes Pct Auto 0.2 %; Lymphocytes Percent Auto 4.2 % (20-44); Mean Corpuscular HGB Conc 33 gm/dL (32-36); Mean Corpuscular Hemoglobin 29 pg (26-34); Mean Corpuscular Volume 88 fL (80-100); Monocytes Percent Auto 7.4 % (0.0-11.0); Neutrophils Percent Auto 87.2 % (42.0-72.0); Platelet Count* 183 K/uL (140-440); RDW Coefficient of Variation % 13.4 % (11.5-15.5); Red Blood Count 4.26 m/uL (4.00-5.20); White Blood Count* 5.03 K/uL (4.50-11.00)
[2024-08-18 10:17] LABS: Slide Review Reflex No
[2024-08-18 10:25] LABS: Albumin* 4.1 g/dL (3.3-5.0); Chloride* 101 mmol/L (96-114)
[2024-08-18 10:26] LABS: Potassium* 3.9 mmol/L (3.6-5.1); Sodium* 135 mmol/L (135-149)
[2024-08-18 10:28] LABS: Alkaline Phosphatase* 74 U/L (40-150); Anion Gap 13 mEq/L (7-15); Aspartate Amino Transferase* 23 U/L (12-35); Bilirubin Total* 0.2 mg/dL (0.1-1.5); Blood Urea Nitrogen* 4 mg/dL (5-24); Carbon Dioxide* 21 mmol/L (20-32); Creatinine* 0.4 mg/dL (0.5-1.5); Est. Creatinine Clearance* 162.65; Estimated Glomerular Filt Rate 136 ml/min; Glucose* 90 mg/dL (60-115); Total Protein* 7.3 g/dL (6.0-8.3)
[2024-08-18 10:29] LABS: Alanine Aminotransferase* 16 U/L (4-35); Calcium* 8.6 mg/dL (8.4-10.6)
== END 2024-08-18 10:58 | disposition home or self-care (01) ==
PROVIDERS: Emergency Provider Internal Medicine
DX: J10.1 Influenza due to other identified influenza virus with other respiratory manifestations (principal); Z33.1 Pregnant state, incidental
CPT/HCPCS: 36415; 80053; 81001; 81003; 85025; 87086; 87631; 99283; 99284; J7030

== ENCOUNTER 2024-09-07 10:06 | Outpatient (CLI) | payer MEDICAID, SELFPAY | END 2024-09-07 10:07 | disposition home or self-care (01) | PROVIDERS: Visit Provider Obstetrics & Gynecology | DX: Z34.81 Encounter for supervision of other normal pregnancy, first trimester (principal) | CPT/HCPCS: 86146 ==

== ENCOUNTER 2024-10-31 12:51 | Outpatient (CLI) | payer MEDICAID, SELFPAY ==
--- NOTE | 2024-10-31 13:00 | CRLHL7_ITS ---
For Patients: As a result of the Century Cures Act, medical imaging exams and procedure reports are released immediately into your electronic medical record. You may view this report before your referring provider. If you have questions, please contact your health care provider. OB ULTRASOUND SURVEY LMP: 06/12/2024. MARTINA by LMP: 03/19/2025. GA: 20 w, 1 d. INDICATION: anatomy. TECHNIQUE: Real time grayscale imaging of the fetus was performed. Evaluate anatomy. Transabdominal. position: Multiple positions. Cervix: Visualized. Technique: Transabdominal. Length of closed cervix: 4.7 cm. Placenta/cord: Anterior. Technique: Transabdominal. Placenta tip to internal OS: 11.4 cm. Umbilical Cord: 3-vessel cord. Placenta insertion: Central. Amniotic Fluid: 3.6 cm SDP (greater than/equal to: 2- less than 8 cm). SURVEY: Observed Structures. Calvarium/Spine: Cerebellum: 2.1 cm, 21 w 3 d. Cisterna Magna: 5.3 mm. Nuchal Fold: 3.8 mm. Lateral Ventricle: 5.4 mm. CSP: Yes. Midline Falx: Yes. Choroid Plexus: Yes. Spine: Yes. Abdomen: Stomach: Yes. Abd Cord Insertion: Yes. Urinary Bladder: Yes. Kidneys: Yes, longitudinal plane. Diaphragm: Yes. Face: Nose/lips: Yes. Orbital view: Yes. Profile: Yes. Limbs: Upper Extremities: Yes. Lower Extremities: Yes. Hands: Yes. Feet: Yes. Vascular: 4-Chamber Heart: Yes. LVOT: Yes. RVOT: Yes. 3VV: Yes. 3VTV: Yes. BPD: 4.6 cm. 19 w, 6 d, 35.7 percent. HC: 17.3 cm. 19 w, 6 d, 29.8 percent. AC: 16.0 cm. 21 w, 1 d, 75.1 percent. FL: 3.2 cm. 20 w, 0 d, 38.0 percent. FL/AC ratio: 20.14 percent. HC/AC ratio: 1.08. heart rate: 147 bpm. age by this US: 20 w, 3 d. MARTINA by this US: 03/17/2025. EFW: 358.59 g. Weight: 0 lbs, 13 oz. Percentile by MARTIAN: 66.6 percent. IMPRESSION: 1. Concordance of clinical and sonographic dating. 2. Given the limitations of body habitus the anatomic survey is within normal limits. Anjel Dyer M.D. Diagnostic Radiologist [email or web address] [email or web address] jj/Dictated by: Anjel Dyer MD @ 10/31/2024 3:53:00 PM (Electronically Signed)
== END 2024-10-31 12:52 | disposition home or self-care (01) ==
LOC: US 12:52
PROVIDERS: Visit Provider Obstetrics & Gynecology
DX: Z34.92 Encounter for supervision of normal pregnancy, unspecified, second trimester (principal); Z3A.20 20 weeks gestation of pregnancy
CPT/HCPCS: 76805

== ENCOUNTER 2024-12-25 08:26 | Outpatient (CLI) | payer MEDICAID, SELFPAY | END 2024-12-25 08:27 | disposition home or self-care (01) | LOC: NFLDREF 12-26 13:09 | PROVIDERS: Visit Provider Obstetrics & Gynecology | DX: Z34.93 Encounter for supervision of normal pregnancy, unspecified, third trimester (principal); Z3A.28 28 weeks gestation of pregnancy | CPT/HCPCS: 86592 ==

== ENCOUNTER 2025-02-13 08:26 | Outpatient (CLI) | payer MEDICAID, SELFPAY | END 2025-02-13 08:27 | disposition home or self-care (01) | LOC: NFLDREF 02-17 17:01 | PROVIDERS: Visit Provider Obstetrics & Gynecology | DX: Z34.90 Encounter for supervision of normal pregnancy, unspecified, unspecified trimester (principal); L29.9 Pruritus, unspecified | CPT/HCPCS: 82239; 84450; 84460 ==

== ENCOUNTER 2025-02-23 11:01 | Outpatient (CLI) | payer MEDICAID, SELFPAY ==
[2025-02-24 13:40] LABS: Strep B DNA Probe Negative (Negative)
[2025-02-24 13:59] LABS: Strep B Susceptibility Needed? No
== END 2025-02-23 11:02 | disposition home or self-care (01) ==
LOC: NFLDREF 11:01
PROVIDERS: Visit Provider Obstetrics & Gynecology
DX: Z34.93 Encounter for supervision of normal pregnancy, unspecified, third trimester (principal)
CPT/HCPCS: 87081; 87653

== ENCOUNTER 2025-02-27 10:08 | Outpatient (CLI) | payer MEDICAID, SELFPAY ==
--- NOTE | 2025-02-27 10:15 | CRLHL7_ITS ---
For Patients: As a result of the Century Cures Act, medical imaging exams and procedure reports are released immediately into your electronic medical record. You may view this report before your referring provider. If you have questions, please contact your health care provider. INDICATION: Maternal obesity. COMPARISON: None available. TECHNIQUE: Grayscale pelvic ultrasound via a transabdominal approach. FINDINGS: number: 1 Position: Cephalic. Placental Position: Anterior. Amniotic fluid: DVP 4.7cm. heart rate: 144bpm. BPP Score: Fluid: 2 Breathin Movement: 2 Tone: 2 Total: 6 IMPRESSION: ABNORMAL BPP score (6/8); no points given for absent breathing. Dictated by Noah Urbina MD @ 02/27/2025 12:04:09 PM (Electronically Signed)
== END 2025-02-27 10:09 | disposition home or self-care (01) ==
LOC: US 10:09
PROVIDERS: Visit Provider Obstetrics & Gynecology
DX: O99.213 Obesity complicating pregnancy, third trimester (principal); Z3A.37 37 weeks gestation of pregnancy
CPT/HCPCS: 59025; 76819; G0463

== ENCOUNTER 2025-02-28 13:40 | Outpatient (CLI) | payer MEDICAID, SELFPAY ==
--- NOTE | 2025-02-28 14:00 | CRLHL7_ITS ---
For Patients: As a result of the Cures Act, medical imaging exams and procedure reports are released immediately into your electronic medical record. You may view this report before your referring provider. If you have questions, please contact your health care provider. LMP: 06/12/2024. MARTINA by LMP: 03/19/2025. GA: 37w, 2d. Single. INDICATION: Supervision of normal . CERVIX: Not visualized. POSITIONING: Vertex. AMNIOTIC FLUID: 5.6 cm SDP. BIOPHYSICAL PROFILE: Total score: 8. Gross body movements: 2. tone: 2. Respiratory activity: 2. Amniotic fluid: 2. (SDP N: Increase 2 x 1 cm) PLACENTA: Technique: Transabdominal. PLACENTA POSITION: Anterior. DOPPLER: heart rate: 136 bpm. IMPRESSION: Normal biophysical profile 01/12. Anjel Dyer M.D. Diagnostic Radiologist [email or web address] bM/Dictated by: Anjel Dyer MD @ 02/28/2025 3:10:00 PM (Electronically Signed)
== END 2025-02-28 13:41 | disposition home or self-care (01) ==
LOC: US 13:41
PROVIDERS: Visit Provider Obstetrics & Gynecology
DX: Z34.93 Encounter for supervision of normal pregnancy, unspecified, third trimester (principal); Z3A.37 37 weeks gestation of pregnancy
CPT/HCPCS: 76819

== ENCOUNTER 2025-03-06 14:01 | Outpatient (CLI) | payer MEDICAID, SELFPAY ==
[2025-03-06 14:08] VITALS: PULSE 225; O2SAT 81
[2025-03-06 14:09] VITALS: PULSE 84; O2SAT 97
[2025-03-06 14:12] VITALS: BP 112/66; PULSE 77; RESP 16; TEMP 36.9
--- NOTE | 2025-03-06 14:21 | CRLHL7_ITS ---
For Patients: As a result of the Century Cures Act, medical imaging exams and procedure reports are released immediately into your electronic medical record. You may view this report before your referring provider. If you have questions, please contact your health care provider. INDICATION: Nonreactive NST TECHNIQUE: Ultrasound OB pelvis transabdominal. Real-time major-scale imaging of the fetus was performed without stress testing. COMPARISON : Ob biophysical profile score February 28, 2025 FINDINGS: Sonographic imaging demonstrates a single living intrauterine gestation. Fetus demonstrates a regular cardiac rate of 150 beats per minute. Fetus has a vertex orientation. The placenta lies anterior. Amniotic fluid volume appears normal with single deepest pocket measuring 6.9 centimeters. breathing movements, motion, and tone were all observed. IMPRESSION: Single viable intrauterine with a biophysical profile 8/8. Dictated by Clarence Romero MD @ 03/06/2025 3:05:02 PM (Electronically Signed)
--- NOTE | 2025-03-06 15:33 | PC.OBNST ---
NST Note NST Note Start: 03/06/25 14:21 Freq: ONCE Status: Active Protocol: Document 03/06/25 14:21 BRM (Rec: 03/06/25 15:33 BRM No Response) NST Note 8 Para (# of births) 2 EDC 03/19/25 Gestational Age In 38 Weeks & 1 Days Weeks & Days Patient Presented Other with Complaint(s) of Other Complaints Non-reactive NST in clinic, sent over to center for further monitoring and BPP Reactive Yes Appropriate for Yes Gestational Age LARS Adamson RN Date 03/06/25 Reactive Yes Appropriate for Yes Gestational Age LARS MASTERS MD Date 03/06/25 OB NST charge Yes Complete NST Note Yes via Write Note The provider's electronic signature indicates the NST is reactive/appropriate for gestational age. *Note to provider: If an addendum is required, open the patient's chart and click on the note under the Nurse/Allied Health tab.
== END 2025-03-06 15:29 | disposition home or self-care (01) ==
LOC: OB OUT 14:02 → OB 14:03
PROVIDERS: Visit Provider Obstetrics & Gynecology
DX: O09.93 Supervision of high risk pregnancy, unspecified, third trimester (principal); Z3A.38 38 weeks gestation of pregnancy
CPT/HCPCS: 59025; 76819; G0463

== ENCOUNTER 2025-03-08 08:41 | Outpatient (CLI) | payer MEDICAID, SELFPAY ==
[2025-03-08 08:56] VITALS: PULSE 77; O2SAT 98
[2025-03-08 09:01] VITALS: RESP 16; TEMP 36.8
[2025-03-08 09:03] VITALS: BP 121/69; PULSE 65
--- NOTE | 2025-03-08 10:03 | PC.OBNST ---
NST Note NST Note Start: 03/08/25 08:51 Freq: ONCE Status: Active Protocol: Document 03/08/25 09:40 WK (Rec: 03/08/25 10:03 WK No Response) NST Note 8 Para (# of births) 2 EDC 03/19/25 Gestational Age In 38 Weeks & 3 Days Weeks & Days Patient Presented Contractions/cramping with Complaint(s) of Reactive Yes RN Jony RNC Date 03/08/25 Reactive Yes RN PThlloyd RN Date 03/08/25 OB NST charge Yes Complete NST Note Yes via Write Note The provider's electronic signature indicates the NST is reactive/appropriate for gestational age. *Note to provider: If an addendum is required, open the patient's chart and click on the note under the Nurse/Allied Health tab.
== END 2025-03-08 09:54 | disposition home or self-care (01) ==
LOC: OB OUT 08:42 → OB 08:42
PROVIDERS: Visit Provider Obstetrics & Gynecology
DX: O47.1 False labor at or after 37 completed weeks of gestation (principal); Z3A.38 38 weeks gestation of pregnancy
CPT/HCPCS: 59025; G0463

== ENCOUNTER 2025-03-09 10:15 | Inpatient (IN) | payer MEDICAID, SELFPAY ==
[2025-03-09] VITALS (27 sets, daily range): BP systolic 109–130; BP diastolic 59–83; PULSE 62–88; RESP 16–18; TEMP 36.6–37.4; O2SAT 96–99; BMI 38.4
--- NOTE | 2025-03-09 10:45 | P.LDBA_ITS ---
Subjective History of Present Illness Narrative: Patient is being admitted to Labor and Delivery for early labor. She is a 29 year old at 38 4/7 weeks gestation. Her full history and physical was dictated by Dr. Dodson on 02/23. Please see this for details. Specific Issues/Plans Partner: Jose Children: Zabrina España Baby: Marion! Patient declined gonorrhea and chlamydia screening [place] : negative H&P: 02/23/[address] Dodson # history recurrent loss: 2 chemical pregnancies, 2 spontaneous abortions at 7 weeks gestation, right salpingectomy for ectopic in April 2024 * APS testing negative # history of x2. * Repeat scheduled 03/13 * If active labor before scheduled , she desires . Knows we do not offer this with C/S x2 here. # obesity, BMI 35.9 Hemoglobin A1c: 5.3% BPP starting at 37: surveillance form filled out on 01/08/25 # she reports her daughter was born with a heart murmur, no intervention needed, resolved Imagin10/11/2024: FAS no anomalies, EFW 67%, a/c 75%, SDP 3.6 cm, anterior placenta without previa. Vaccinations: COVID: Declined Flu: Declined Tdap: 01/08/25 RSV: 02/23/2025 32 week mental health: PHQ-9 0, MAYELA-7 1. Last pap: 06/17/20. Declined Pap at new OB. Pap OB - Problem Based A/P Additional Plan (1) Previous delivery affecting : Status: Acute (2) : Status: Acute Plan Currently in early labor with cervical change since last night. Thus, we will proceed with repeat today. Patient notes no questions regarding repeat ; consent was done by Dr. Rodriguez previously. Ancef 2 g and azithomycin 500 mg as pre-op prophylaxis. OB Exam Physical Exam Vital signs: Temp Pulse BP 98 F 76 130/68 03/09/25 09:35 03/09/25 09:32 03/09/25 09:32 Narrative: Physical exam: General: No acute distress Psych: Alert and oriented x3, full affect HEENT: Normocephalic, atraumatic Heart: Regular rate and rhythm, no murmur rub or gallop Lungs: Clear to auscultation bilaterally Abdomen: Soft, nontender, gravid Lower extremities: No edema or erythema Cervical exam per RN: 1.5 cm dilated, 50% effaced. Patient was closed last night. tracing: Baseline 130, accelerations present, no decelerations, moderate to minimal variability. Category 2, overall reassuring. Contractions are noted regularly every 3-5 minutes.
[2025-03-09] MEDS: AZITHROMYCIN 500 MG in 0.9 % SODIUM CHLORIDE 250 ml 250 ML 255 MG IVPB (10:51)
[2025-03-09 10:58] LABS: Hematocrit* 41.0 % (33.0-51.0); Hemoglobin* 13.6 gm/dL (12.0-16.0); Immature Granulocytes Abs Auto 0.02 K/uL (0.00-0.30); Immature Granulocytes Pct Auto 0.3 %; Mean Corpuscular HGB Conc 33 gm/dL (32-36); Mean Corpuscular Hemoglobin 29 pg (26-34); Mean Corpuscular Volume 87 fL (80-100); RDW Coefficient of Variation % 14.5 % (11.5-15.5); Red Blood Count* 4.72 m/uL (4.00-5.20); White Blood Count* 7.72 K/uL (4.50-11.00)
[2025-03-09 11:16] LABS: Lymphocytes Absolute Auto 1.30 K/uL (0.90-2.90)
[2025-03-09 11:17] LABS: Slide Review Reflex No
--- NOTE | 2025-03-09 12:25 | SUR.OPER ---
SENDING PLACENTA PER SURGEON
--- NOTE | 2025-03-09 13:30 | P.ANES_ITS ---
Anesthesia Charges Start Date/Time Anesthesia Start Date: 03/09/25 Anesthesia Start Time: 11:27 Stop Date/Time Anesthesia Stop Date: 03/09/25 Anesthesia Stop Time: 13:08 Summary Emergency: BEHAVIORAL HEALTH CARE COORDINATOR Coding CPT Codes CPT Codes: ANESTH CS DELIVERY - 85364 ([id number]) P2 - PATIENT W/MILD SYST DISEASE, QK - CHIEF OF HARBOR PATROL 2-4 CNCRNT ANES PROC Additional Codes: Summary - Emergency: BEHAVIORAL HEALTH CARE COORDINATOR ([id number])
--- NOTE | 2025-03-09 13:30 | W.ANESCHARGE ---
Anesthesia Charges Start Date/Time Anesthesia Start Date: 03/09/25 Anesthesia Start Time: 11:27 Stop Date/Time Anesthesia Stop Date: 03/09/25 Anesthesia Stop Time: 13:08 Summary Emergency: LOSS PREVENTION REPRESENTATIVE Coding CPT Codes CPT Codes: ANESTH CS DELIVERY - 30609 ([id number]) P2 - PATIENT W/MILD SYST DISEASE, QK - PRODUCTION CLERK 2-4 CNCRNT ANES PROC Additional Codes: Summary - Emergency: LOSS PREVENTION REPRESENTATIVE ([id number])
--- NOTE | 2025-03-09 13:34 | P.NB_ITS ---
Nerve Block Nerve Block Time Seen by Provider: 12:50 Date Seen: 03/09/25 Type of block requested by surgeon for post-operative analgesia: TAP Side: bilateral Time out performed: Yes Verification of patient name: Yes Verification of date of : Yes Site marking: site marked Name of person performing procedure: Sharlene Fournier Assistants, if any: GISSELLE Nina Continuous monitoring Was continuous monitoring of O2 sat, B/P, monitoring coordinator, recorded every 15 minutes?: Yes Procedure Checklist: sterile prep, needles and gloves Ultrasound guided. Images saved: Yes Medications given in 5ml increments after negative aspiration: Marcaine %: 0.25 mL: 30 Needle gauge: 20 and Exparel mL: 10 Needle gauge: 20 Patient tolerated procedure well: Yes Block Charges Block Charge (with Pro Fee): TAP Bilateral Use of Ultrasound Machine for Block: Yes- US Guidance/pain block
[2025-03-09] MEDS: LACTATED RINGERS 1000 ML 1,000 ML 125 ML IV (13:36)
--- NOTE | 2025-03-09 13:50 | P.ANES_ITS ---
Anesthesia Charges Start Date/Time Anesthesia Start Date: 03/09/25 Anesthesia Start Time: 11:27 Stop Date/Time Anesthesia Stop Date: 03/09/25 Anesthesia Stop Time: 13:08 Summary Emergency: RAEANN Coding CPT Codes CPT Codes: ANESTH CS DELIVERY - 14551 ([id number]) QK - TOOTH CUTTER SPUR 2-4 CNCRNT ANES PROC, QX - CURED MEATS SUPERVISOR SVC W/ MD MED DIRECTION, P2 - PATIENT W/MILD SYST DISEASE Additional Codes: Summary - Extremes of Age - Over 70 or under 1: [id number] 1 W.PM.ANESCHARGES 1 3 W.ANESAGES Summary - Emergency: RAEANN ([id number])
--- NOTE | 2025-03-09 13:50 | W.ANESCHARGE ---
Anesthesia Charges Start Date/Time Anesthesia Start Date: 03/09/25 Anesthesia Start Time: 11:27 Stop Date/Time Anesthesia Stop Date: 03/09/25 Anesthesia Stop Time: 13:08 Summary Emergency: RAEANN Coding CPT Codes CPT Codes: ANESTH CS DELIVERY - 54343 ([id number]) QK - VISUAL JOURNALIST 2-4 CNCRNT ANES PROC, QX - SOCIAL WORK CASE MANAGER SVC W/ MD MED DIRECTION, P2 - PATIENT W/MILD SYST DISEASE Additional Codes: Summary - Extremes of Age - Over 70 or under 1: [id number] 1 W.PM.ANESCHARGES 1 3 W.ANESAGES Summary - Emergency: RAEANN ([id number])
--- NOTE | 2025-03-09 16:51 | PM.OBPRCCS ---
Procedure Date of procedure: 03/09/25 Pre-op diagnosis: Early labor at 38 4/7 weeks' gestation Two previous deliveries Post-op diagnosis: same Procedure Done: Global Will [facility] bill your pro fee for this procedure?: Yes Blood Loss Measurement Type: QBL (383) Bakri Used: No IV fluids (mL): 600 Urine Output (mL): 100 Surgeon: Adelita Pierce MD Anesthesia Type: Spinal Findings: 1. Male , vertex presentation, Apgars 8 & 9, weight 3140 g = 6 lbs 15 oz 2. Scarring of subcutaneous fat and bladder reflection. Otherwise normal appearance of uterus, bilateral tubes and ovaries. Procedure Name: Repeat low transverse delivery Procedure Description: PROCEDURE IN DETAIL: Patient was taken to the operating room with IV running. She received cefazolin and azithromycin in preoperative prophylaxis. Spinal anesthesia was administered. [place] catheter was inserted. She was prepped and draped in the usual sterile fashion. Anesthesia was tested and found to be adequate. A low-transverse skin incision was made with a scalpel and carried through to the underlying layer of fascia with the scalpel. The subcutaneous fat was dissected off the underlying fascia with scalpel. The fascia was nicked in the midline with a scalpel, and this incision was extended laterally with scissors. The fascia was dissected off the underlying rectus muscles sharply. The rectus muscles were in the midline. Peritoneum was identified and entered bluntly. Bovie was used to widen this opening laterally. The bladder reflection was scarred and advanced along the lower uterine segment. A bladder flap was created with a combination of sharp and blunt dissection. Elvis O retractor was inserted and tightened down, providing excellent visualization of the lower uterine segment. Low-transverse uterine incision was made with a scalpel. Incision was widened bluntly. The 's head was grasped through the hysterotomy and delivered with the help of fundal pressure. The remainder of the body delivered without incident. Cord was clamped and cut. Infant was handed off to attending nurses. The placenta was delivered with gentle traction on the cord. The uterus was cleaned of all clots and debris with the dry lap pad. The uterus was initially exteriorized, but this worsened visualization of the lower uterine segment. The adnexa were examined and noted to be normal in appearance.The cul-de-sac was cleansed with a laparotomy sponge and the uterus was returned to the abdomen. The hysterotomy was reapproximated with 0 Vicryl in a running, locked fashion. Hemostasis was noted. The gutters were cleansed with laparotomy sponge, removing any further clots and debris. The Elvis O retractor was removed. The hysterotomy was reexamined and found to be hemostatic. The peritoneum was reapproximated with 2 0 Vicryl in a running fashion. The rectus muscles were examined and Bovie used on bleeding vessels. The fascia was reapproximated with 0 Vicryl in a running fashion. Subcutaneous fat was irrigated and Bovie used on oozing vessels. The subcutaneous fat was reapproximated with 2 0 plain gut suture in an interrupted fashion. The skin was closed with a subcuticular stitch of 4-0 Monocryl. Silver dressing was applied above this. Patient tolerated procedure well was taken to recovery area in stable condition. Complications: None Pathology: specimen obtained, sent to pathology (placenta) Surgery Debrief Performed: Yes Disposition: floor total score - 1 minute: 8 total score - 5 minute: 9
[2025-03-09] MEDS: ENOXAPARIN 40 MG/0.4 ML INJ SUBCUT (18:54)
[2025-03-10] VITALS (21 sets, daily range): BP systolic 85–100; BP diastolic 53–68; PULSE 76–97; RESP 14–20; TEMP 36.7–37.2; O2SAT 95–98
[2025-03-10 05:53] LABS: Hemoglobin* 9.1 gm/dL (12.0-16.0)
[2025-03-10] MEDS: DOCUSATE SODIUM 100 MG CAPSULE PO (09:15)
[2025-03-10] MEDS: ACETAMINOPHEN 500 MG TABLET 1000 MG PO (09:15)
[2025-03-10 09:22] LABS: Hematocrit* 27.1 % (33.0-51.0); Hemoglobin* 8.9 gm/dL (12.0-16.0); Immature Granulocytes Abs Auto 0.03 K/uL (0.00-0.30); Immature Granulocytes Pct Auto 0.3 %; Lymphocytes Absolute Auto 2.16 K/uL (0.90-2.90); Mean Corpuscular HGB Conc 33 gm/dL (32-36); Mean Corpuscular Hemoglobin 29 pg (26-34); Mean Corpuscular Volume 88 fL (80-100); RDW Coefficient of Variation % 14.3 % (11.5-15.5); Red Blood Count* 3.07 m/uL (4.00-5.20); White Blood Count* 10.19 K/uL (4.50-11.00)
[2025-03-10 09:26] LABS: Slide Review Reflex No
--- NOTE | 2025-03-10 10:11 | PM.OBPNVD1 ---
OB - PN:Subj Subjective Date Seen: 03/10/25 Narrative: Vita is a 29yo seen on POD1 from repeat C/S performed at 38 weeks for spontaneous onset of labor. was complicated by history of recurrent loss, x2, obesity. Patient did have a syncopal event last night while on the toilet. She describes feeling lightheaded and flushed, where her blood pressure was 90s/60s thereafter. food mixer assembler MD was notified, nothing further was recommended. Routine a.m. labs were performed at 0525, where hemoglobin was noted to be 9.1 from 13.6 preoperatively. I requested q2h VS assessment and initiation of I/Os when I assumed care at 0700. Patient notes she is feeling well this morning. She is seated upright in a chair, eating breakfast. Pain is well controlled, where she has only been taking Toradol for pain management. She has not taken Tylenol nor any narcotics overnight. She notes that she has not had any further dizziness or lightheadedness. Has ambulated successfully since that initial event. Denies chest pain or dyspnea. She has not been having nausea, but notes she does have slight nausea at present after eating a pancake this morning. Denies vomiting. Lochia has been small volume. She is voiding spontaneously, 3x since catheter was removed yesterday evening. UOP was 900cc prior to catheter removal. Patient is passing gas, no bowel movement. OB - PN: Obj Exam Physical Exam: Vital signs: Temp Pulse Resp BP Pulse Ox O2 Del Method 98.7 F 90 16 94/67 95 Room Air 03/10/25 08:00 03/10/25 08:00 03/10/25 08:10 03/10/25 08:00 03/10/25 08:00 03/10/25 08:00 Narrative: VS reviewed and technically within normal limits, though her BP is decreased from historic baseline - in the 90s/60s overnight. No tachycardia. General: Alert and oriented, in no acute distress Psych: Appropriate mood and affect Abdomen: Soft, mild gaseous distention in the upper abdomen. Abdomen is not tense and no significant upper abdominal tenderness. Mild tenderness to palpation in the lower quadrants, consistent with postoperative state. No rebound or guarding. Fundus palpates firm at umbilicus. Surgical incision is covered with silver dressing, small serosanginous shadowing noted at the midline but otherwise is clean/dry. Extremities: Trace bilateral edema. Cavles without tenderenss or erythema. UOP: 3 unmeasured voids since catheter removal OB - PN: Obj Data Labs Labs: Laboratory Results - last 24 hr 03/09/25 03/09/25 03/10/25 10:35 10:46 05:25 WBC 7.72 RBC 4.72 Hgb 13.6 9.1 L Hct 41.0 MCV 87 MCH 29 MCHC 33 RDW Coeff of Brittni 14.5 Plt Count 185 Neut % (Auto) 77.0 H Lymph % (Auto) 16.6 L Cowley % (Auto) 5.4 Eos % (Auto) 0.1 Baso % (Auto) 0.6 Neut # (Auto) 5.90 Lymph # (Auto) 1.30 Cowley # (Auto) 0.40 Eos # (Auto) 0.01 Baso # (Auto) 0.05 Abs Immat Gran (auto) 0.02 Imm/Tot Granulo (auto) 0.3 Blood Type O Positive Antibody Screen NEGATIVE 03/10/25 09:15 WBC 10.19 RBC 3.07 L Hgb 8.9 L Hct 27.1 L MCV 88 MCH 29 MCHC 33 RDW Coeff of Brittni 14.3 Plt Count 143 Neut % (Auto) 70.1 Lymph % (Auto) 21.2 Cowley % (Auto) 7.0 Eos % (Auto) 0.7 Baso % (Auto) 0.7 Neut # (Auto) 7.15 H Lymph # (Auto) 2.16 Cowley # (Auto) 0.70 Eos # (Auto) 0.07 Baso # (Auto) 0.07 Abs Immat Gran (auto) 0.03 Imm/Tot Granulo (auto) 0.3 Blood Type Antibody Screen OB - PN: A/P Delivery Assessment and Plan (1) Previous delivery affecting : Status: Acute (2) : Status: Acute Plan Vita is a 29yo seen on POD1 from repeat C/S performed at 38 weeks for spontaneous onset of labor. was complicated by history of recurrent loss, x2, obesity. Surgery was noted to be uncomplicated, QBL 383mL. Postoperative course is notable for a syncopal event overnight when she was going to the restroom, no trauma. Patient has reassuring vital signs, though her blood pressure is slightly lower than her historic baseline in the 90s over 60s overnight. No tachycardia. She had adequate urine output documented prior to catheter removal, 900 mL since surgery. She has not had urine output documented since removal, but has 3 unmeasured voids. Patient notes her pain is well controlled, only on a regimen of Toradol (has declined Tylenol and oxycodone). She has subsequently been up to ambulate without difficulty - denies dizziness, lightheadedness, chest pain or dyspnea. Tolerating p.o. intake, notes slight nausea this morning without vomiting after eating pancakes. Lochia is described as small volume. Passing flatus, no bowel movement. Abdominal exam is overall benign. She does have slight gaseous distension of the upper abdomen, but her abdomen is overall soft and without rigidity. She has appropriate tenderness to palpation in the bilateral lower quadrants, but no rebound or guarding. Fundus palpated firm at umbilicus. Plan q2h vital sign assessment and initiation of I/O monitoring. Repeat CBC (draw coags to hold) planned at 6 hours from last set, around 1100 this AM, to ensure Hgb stability. If Hgb downtrending, will reassess patient and send coags, consider CT A/P. Fortunately, patient is progressing through her post-op milestones and is now asymptomatic. My suspicion for an acute post-op complication is low at this time. Still, patient was initially interested in DC to home after 24 hours. I would encourage her to remain inpatient today to allow for ongoing monitoring of her clinical status and VS. She expressed understanding and is agreeable. Continue routine PP cares and support. Pain control with NSAIDS and tylenol as first line, oxycodone available PRN. Plan day: 1 Plan: routine care
[2025-03-10] MEDS: LANOLIN CREAM 1 APPLIC TOPICAL (16:23)
[2025-03-10] MEDS: ENOXAPARIN 40 MG/0.4 ML INJ SUBCUT (19:43)
[2025-03-11 01:08] VITALS: BP 101/66; PULSE 83; RESP 20; TEMP 36.7; O2SAT 96
[2025-03-11 04:53] VITALS: BP 119/79; PULSE 83; RESP 16; O2SAT 99
[2025-03-11 08:25] VITALS: BP 105/72; PULSE 97; RESP 16; TEMP 36.7; O2SAT 98
[2025-03-11] MEDS: ACETAMINOPHEN 500 MG TABLET 1000 MG PO (08:33)
[2025-03-11] MEDS: DOCUSATE SODIUM 100 MG CAPSULE PO (08:33)
[2025-03-11 08:52] LABS: Hematocrit* 25.6 % (33.0-51.0); Hemoglobin* 8.4 gm/dL (12.0-16.0); Immature Granulocytes Abs Auto 0.03 K/uL (0.00-0.30); Immature Granulocytes Pct Auto 0.3 %; Lymphocytes Absolute Auto 2.39 K/uL (0.90-2.90); Mean Corpuscular HGB Conc 33 gm/dL (32-36); Mean Corpuscular Hemoglobin 30 pg (26-34); Mean Corpuscular Volume 90 fL (80-100); RDW Coefficient of Variation % 14.7 % (11.5-15.5); Red Blood Count* 2.85 m/uL (4.00-5.20); White Blood Count* 10.35 K/uL (4.50-11.00)
[2025-03-11 08:55] LABS: Slide Review Reflex No
--- NOTE | 2025-03-11 10:41 | P.DS_ITS ---
DS: Providers Provider Date Seen: 03/11/25 Date of admission: 03/09/25 10:15 Primary care physician: Not a Local Provider Admitting Clinician: Adelita Pierce MD Attending Physician on discharge: Adelita Pierce MD Exam Narrative: Exam Narrative: VS reviewed and within normal limits. General: Alert and oriented, in no acute distress Psych: Appropriate mood and affect Abdomen: Soft, mild gaseous distension noted yesterday is improved. Abdomen is not tense, no upper abdominal tenderness. Mild tenderness to palpation in the lower quadrants, consistent with postoperative state. No rebound or guarding. Fundus palpates firm at umbilicus. Surgical incision is covered with silver dressing, small serosanginous shadowing noted at the midline but otherwise is clean/dry. Extremities: Trace bilateral edema. Cavles without tenderenss or erythema. Const: Vital Signs, click to edit/add: Vital Signs - 24 hr 03/10/25 11:10 03/10/25 12:00 03/10/25 16:00 Temperature 98.0 F 98.8 F Pulse Rate 92 94 Pulse Rate [Pulse Oximeter] Respiratory Rate 16 14 14 Blood Pressure 93/64 94/63 Blood Pressure [Le ft Arm] Pulse Oximetry 98 97 Oxygen Delivery Me thod Room Air Room Air 03/10/25 21:20 03/11/25 01:08 03/11/25 04:53 Temperature 98.8 F 98.1 F Pulse Rate Pulse Rate [Pulse Oximeter] 89 83 83 Respiratory Rate 20 20 16 Blood Pressure Blood Pressure [Le ft Arm] 85/53 L 101/66 119/79 Pulse Oximetry 95 96 99 Oxygen Delivery Me thod Room Air Room Air Room Air 03/11/25 08:25 Temperature 98.0 F Pulse Rate Pulse Rate [Pulse Oximeter] 97 Respiratory Rate 16 Blood Pressure Blood Pressure [Le ft Arm] 105/72 Pulse Oximetry 98 Oxygen Delivery Me thod Room Air OB - DS: Summary Hospital Course Hospital Course: The patient is a 29 year old G 8 P 3 at 38 weeks gestation that was admitted to the Center on 03/09/25 for unscheduled repeat C/S for labor. She had an uncomplicated delivery. She delivered a viable male infant. She is breast feeding. the patient has done well. Patient has had acute blood loss anemia, where she was symptomatic with dizziness/lightheadedness. This was greatest about 8 hours post-op, where she did have a presyncopal event. Since that time, she has ambulated repeatedly successfully. Denies chest pain, dyspnea, dizziness or lightheadedness. AM hemoglobin on day of dismissal is 8.4 from 8.9. Vital signs are within normal limits and patient is meeting all appropriate post-op milestones. Recommend PO iron. Pain is well controlled on just p.o. ibuprofen and Tylenol, has not required any oxycodone. Patient notes she would like to have a small quantity of these on hand at home, if her pain were to worsen. She tolerate p.o. intake without nausea or vomiting. Voiding spontaneously, passing flatus, no bowel movement yet. Lochia is minimal. Patient is baby, bonding appropriately. Peripartum Data delivery method: Repeat Section Procedures: Procedures Operation Date: 03/09/25 11:30 Actual Procedure Side Surgeon p Repeat Section Adelita Pierce MD Gender: Male Time Spent with Patient Time attestation: Total time spent providing and/or coordinating discharge services: Discharge Plan Discharge Disposition: Home, Self-Care Date of Admission: 03/09/25 10:15 Primary Care Provider: Provider,Not a Local Condition: Stable Anticipated Discharge Date/Time: 03/11/25 10:38 Discharge Medications: New oxycodone 5 mg Tablet 5 mg PO Q6H PRN (Reason: Pain) Qty: 10 0RF ferrous sulfate 325 mg (65 mg iron) tablet 325 mg PO .every other day Qty: 30 0RF Continued DHA 200 mg capsule 200 mg PO DAILY Discharge Orders: Discharge Order (Routine); Ordered 03/11/25 Ordered By: Kendra Rodriguez Patient Education: Bupivacaine Liposome (By injection) Additional Instructions: Discharge instructions were reviewed with the patient including signs and symptoms of infection and home going medications Lifting Restrictions: 20 pounds for 6 weeks No not submerge incision under water X 2 weeks? Nothing vaginally for 6 weeks: no tampons or intercourse Do not drive while taking narcotic pain medication(s) Off Work or School for 8 weeks Symptoms to report to doctor: * Bleeding that saturates more than one pad per hour * Passing clots larger than the size of a golf ball * Pain not relieved by prescribed medication * Fever above 100.4 degrees Fahrenheit * A foul vaginal odor * Difficulty in emotions, mood, and functions * Thoughts of hurting yourself and/or * Painful, reddened area in your breast * Any drainage, redness, or tenderness in your IV/epidural site * Severe headache that doesn't improve after taking medications * Changes in vision, including temporary loss of vision, blurred vision, and/or light sensitivity * Upper abdominal pain (usually under ribs on the right side) * Decrease in urination or painful, frequent urinating * Chest pain * Shortness of breath * Tenderness or pain with redness and/swelling in the calf(s) of your leg Optional 2-week visit: incision check, discuss feeding concerns, review control options and screen for anxiety/depression. 6-week visit for an annual exam. consultation services are available to all mothers and babies for the first year after delivery.? To make an appointment, please call [phone]. Follow Up Appointments: Provider,Not a Local [Primary Care Provider, Family Practice] Forms: [facility] Bel[facility], [facility] Info Instructions
== END 2025-03-11 11:25 | disposition home or self-care (01) | DRG 787 ==
LOC: OB OUT 10:32 → OB 10:32
PROVIDERS: Obstetrics & Gynecology; Admitting Provider Obstetrics & Gynecology; Visit Provider Obstetrics & Gynecology
PROC: 10D00Z1 Extraction of Products of Conception, Low, Open Approach (ICD-10-PCS; CPT 59514; principal; 2025-03-09 11:30)
DX: O34.211 Maternal care for low transverse scar from previous cesarean delivery (principal); D62 Acute posthemorrhagic anemia; G89.18 Other acute postprocedural pain; O90.81 Anemia of the puerperium; R55 Syncope and collapse; O99.214 Obesity complicating childbirth; E66.9 Obesity, unspecified; Z37.0 Single live birth; Z3A.38 38 weeks gestation of pregnancy
CPT/HCPCS: 01961; 36415; 64488; 76942; 85018; 85025; 85384; 85610; 85730; 86592; 86850; 86900; 86901; 99140; A4314; A9270; J0456; J0665; J0666; J0690; J1100; J1650; J1885; J2274; J2371; J2405; J2590; J7050; J7120

== ENCOUNTER 2025-03-14 10:50 | Outpatient (CLI) | payer MEDICAID, SELFPAY | END 2025-03-14 10:51 | disposition home or self-care (01) | LOC: NFLDREF 10:51 | PROVIDERS: Visit Provider Obstetrics & Gynecology | DX: N39.0 Urinary tract infection, site not specified (principal) | CPT/HCPCS: 87086 ==

== ENCOUNTER 2025-03-22 20:19 | Emergency (ER) | payer MEDICAID, SELFPAY ==
[2025-03-22] VITALS (11 sets, daily range): BP systolic 106–136; BP diastolic 59–85; PULSE 94–115; RESP 18; TEMP 37.2; O2SAT 94–98; BMI 32.3
--- OUTSIDE RECORDS SUMMARY | 2025-03-22 20:21 | XMS_ITS | Clinical Summary ---
Author Organization [facility] Address [address] [place] [address] Care Team Providers Care Heavy Forging Machine Operator Name Role Phone Pcp, No [...] Encounters Date Type Department Care Team Description 03/09/2025 Lab Requisition [facility] [phone] Adelita Pierce MD 02/11/2025 Orders Only [facility] Scanner 1 scan: (1-Ord) INCOMING RECORDS-LABS, [facility], 02/11/2025 02/11/2025 Orders Only [facility] Scanner 1 scan: (1-Ord) INCOMING RECORDS-LABS, [facility], 02/11/2025 02/11/2025 Orders Only [facility] Scanner 1 scan: (1-Ord) INCOMING RECORDS-LABS, [facility], 02/11/2025 02/11/2025 Transcribe Orders [address] [id number] Yelitza Horton, POLY from Last 3 Months Immunizations Immunization Administration Dates Next Due DTaP [...] or yelled at (see row info)? No 09/26/2024 Interpersonal Safety Abuse 12 - 18 Not on file 09/26/2024 Interpersonal Safety Ambulatory Vulnerability No t on file 09/26/2024 Comments Yes Sex and Gender Information Value Date Recorded Sex Assigned at Female 02/16/2024 12:01 PM CDT Legal Sex Female 3:30 PM BUSINESS INTELLIGENCE REPORTING ANALYST Gender Identity Female 02/16/2024 12:01 PM CDT Sexual Orientation Straight 02/16/2024 12 :01 PM CDT Obstetrics History Para Term AB IAB SAB Ectopic Multiple Livin g Live Births 4 Date Outcome GA Total Labor Labor/2nd/3rd Weight Sex Type Anes PTL Mimi A1 A5 Name Clin Current Last Filed Vital Signs Vital Sign Reading Time Taken Comments Blood Pressure 115/72 09/27/2024 12:19 AM CDT Pulse 88 09/27/2024 12:19 AM CDT Temperature 36.9 C (98.4 F) 09/26/2024 9:50 PM CDT Respiratory Rate 14 09/26/2024 9:50 PM CDT Oxygen Saturation 97% 09/27/2024 12:19 AM CDT Inhaled Oxygen Concentration - - Weight 91.4 kg (201 lb 8 oz) 09/26/2024 9:50 PM CDT Height 162.6 cm (5' 4) 09/26/2024 9:50 PM CDT Body Mass Index 34.59 09/26/2024 9:50 PM CDT Plan of Treatment Health Maintenance Due Date Last Done Comments HIV for age 15-65 2009 Hepatitis C screening for age 18-79 2012 HPV series for age 9-45 (3 - 3-dose series) 04/24/2014 01/30/2014, 02/18/2011 BMI (ht and wt on same day) for age 18+ 07/11/2020 07/11/2019, 03/30/2018, 01/10/2018, Additional history exists Depression screening for age 12+ 07/14/2020 07/14/2019, 07/11/2019, 01/12/2018, Additional history exists Pap test for age 21-65 06/17/2023 06/17/2020, 2017 COVID-19 vaccine series ( season) 2025 Influenza Vaccine (#1) 2025 03/06/2014 Tetanus booster 11/05/2030 11/05/2020, 11/2018, 07/18/2004, Additional history exists RSV vaccine for adults or (1 - 1-dose 75+ series) 2069 Hepatitis B series for 19+ Completed 08/25, 1994, 1994 Pneumococcal series for age 6-49 Aged Out No longer eligible based on patient's age to complete this topic Procedures Procedure Name Priority Date/Time Associated Diagnosis Comments LAB TRACKING EVENT Routine 03/09/2025 12 :12 PM CDT PATH TISSUE EXAM PLACENTA Routine 03/09/2025 12:12 PM CDT SCAN CORRESP-LABORATORY RESULTS 02/11/2025 12:00 AM CDT SCAN CORRESP-LABORATORY RESULTS 02/11/2025 12:00 AM CDT SCAN CORRESP-LABORATORY RESULTS 02/11/2025 12:00 AM CDT MOLD YARD SUPERVISOR THIN PREP PAP SCREEN IMAGED Routine 06/17/2020 3:15 PM BUSINESS INTELLIGENCE REPORTING ANALYST from Last 3 Months or Most Recently Relevant to Health Maintenance Results * LAB TRACKING EVENT (03/09/2025 12:12 PM CDT) Other (Other) Client Collect / Unknown 03/09/2025 12:12 PM CDT 03/09/2025 10:07 PM CDT Adelita Pierce MD LAB BILL ONLY Final Res ult [facility] [address] [place] [address], * PATH TISSUE EXAM PLACENTA (03/09/2025 12:12 PM CDT) Case Report Pathology Report Case: [id number] Authorizing Provider: Adelita Pierce MD Collected: 03/09/2025 1212 Ordering Location: [facility] Received: 03/12/2025 0800 Pathologist: Cori Goel MD Specimen: Placenta 2:22 PM CDT [facility] Amendment 03/15/2025 - Amendmen t issued to add additional information regarding the villitis and associated vascular malperfusion, which is patchy (not diffuse) and involves less than 10% of the disc. The vascular malperfusion is favored to be secondary to the villitis which is also patchy in nature. Dr. Goel discussed the results in detail with Dr. Pierce on 03/15/2025. 2:22 PM CDT [facility] Final Diagnosis A) PLACENTA, DELIVERY: 1. Third trimester marcial placenta with the following characteristics: a. Weight: 387 grams (<10th percentile for gestational age) b. Membranes/ surface: Negative for chorioamnionitis c. Umbilical cord: Three vessel cord Negative for funisitis d. Disc/Villi: Chorionic villi consistent with gestational age Patchy chronic villitis, high grade, with vascular malperfusion, see comment Placental disc without infarcts e. Decidua/basal plate: Chronic deciduitis 2:22 PM CDT [facility] Amendment electronically signed by Cori Goel MD on 03/15/2025 at 1422 CDT at 1644 CDT Comment The findings in the placenta are complex. The major findings are areas of high grade chronic villitis combined with patchy vascular malperfusion. An atypical infection was considered, but special stains for the most commonly implicated microorganisms are negative. When the combination of vascular malperfusion is seen with high-grade chronic villitis, the vascular malperfusion is most often thought to represent a secondary process related to the inflammation, however, a primary thrombotic vasculopathy cannot be unequivocally excluded in such cases. If infection is also unlikely clinically, the pattern of chronic villitis is most consistent with so-called villitis of unknown etiology (ROJELIO). As implied by the name of this entity, the etiology of ROJELIO is not entirely clear, but some data suggest that this may represent an abnormal maternal- alloimmune reaction. While often clinically silent, clinical manifestations can include intrauterine growth restriction; when there is significant inflammatory destruction of vessels/ vascular malperfusion, there can be an association with neurologic impairment. In this case, the degree of involvement is than 10% and the malperfusion is likely secondary to the villitis. There is a recurrence risk for villitis with future pregnancies. 2:22 PM T [facility] Clinical Information Indications for Placental Examination by Pathology / indications: None indicated Maternal indications: Labor with prior section Placental indications: None indicated Infectious specimen (e.g. maternal HIV or HCV): No Clinical information: Date of delivery: 03/09/2025 Time of delivery: 121 Type of delivery: Live born:Yes Gestational age: 38+4 weeks weight of (s): 3140 grams Sex of (s): Male Pertinent Maternal History: Maternal parity: Diabetes: No Hypertension: No Eclampsia: No Smoking: No 2:22 PM [facility] Gross Description A) Received fresh labeled with the patient's name and placenta, is a 387 g, 19.0 x 15.0 x 3.0 cm single placental disc. The membranes are thin, translucent and pink-mckeon. The insertion is marginal and the point of rupture is 4.5 cm from the placental edge. The umbilical cord is mckeon-white and measures 24.0 cm in length averages 1.5 cm in diameter. It is trivascular and normal coiled. The insertion is paracentral, 6.5 cm from the placental edge. The surface is blue-major with normal vascular distribution. There is a 10.0 x 6.0 cm area of subchorionic blood clot comprising 25% of the surface. The maternal surface is intact. The cut surface reveals a 5.5 x 2.5 cm area of ill-defined java developer pink-mckeon parenchyma peripherally located and comprising 5% of the cut surface. The remaining cut surface is spongy purple-red and no additional lesions are identified. Surgical Supervisor sections are submitted: 1. Umbilical cord 2. Membranes 3. Umbilical cord insertion site full-thickness section 4-5. Central full-thickness sections 6. Drill Press Operator Helper parenchyma full-thickness section KMN 03/12/2025 2:22 PM CDT [facility] Microscopic Description The final diagnosis is based on microscopic examination of appropriate sections of all specimens. Due to the presence of a high grade villitis, immunohistochemical stains for CMV, HSV-1/-2, and Treponema pallidum were performed on block A6 and are negative for respective organisms. Support for the interpretation of this case may have included the use of immunohistochemistry and/or in situ hybridization tests that were performed by [facility] and whose performance characteristics were evaluated by pathologists from [facility]. These tests have not been cleared or approved by the U.S. Food and Drug Administration. The FDA has determined that such clearance or approval is not necessary. These tests are used for clinical purposes and should not be regarded as investigational or for research. This laboratory is certified under the Clinical Laboratory Improvement Amendments of 1988 (CLIA) as qualified to perform high complexity clinical laboratory testing. 2:22 PM CDT [facility] Additional Information Interpreted at [facility] - [address] [place] [address] S[facility] [address] [address] Immunohistochemistry controls were reviewed and approved as appropriate by the pathologist during this examination. 2:22 PM CDT [facility] Tissue SPECIMEN FROM PLACENTA / Unknown 03/09/2025 12:12 PM CDT 03/12/2025 8:00 AM CDT Adelita Pierce MD PATHOLOGY/CYTOLOGY Edited Result - Final [facility] [address] [place] [address], [place] * SCAN CORRESP-LABORATORY RESULTS (02/11/2025 12:00 AM CDT) Only the most recent of3 resultswithin the time period is included. us Scanner OTHER Final Result * MOLD YARD SUPERVISOR THIN PREP PAP SCREEN IMAGED (06/17/2020 3:15 PM BUSINESS INTELLIGENCE REPORTING ANALYST) Case Report Gynecologic Cytology Report Case: [id number] Authorizing Provider: Lise Nation CNM Collected: 06/17/2020 1515 Ordering Location: [facility] Received: 06/18/2020 1748 First Screen: Alona Allison Specimen: MOLD YARD SUPERVISOR ThinPrep Vial Screening, Cervical/Vaginal 06/25/2020 12:20 PM BUSINESS INTELLIGENCE REPORTING ANALYST [facility] INTERPRETATION/ RESULT NEGATIVE FOR INTRAEPITHELIAL LESION OR MALIGNANCY (NIL) (none) 06/25/2020 12:20 PM BUSINESS INTELLIGENCE REPORTING ANALYST [facility] at 1220 BUSINESS INTELLIGENCE REPORTING ANALYST SPECIMEN ADEQUACY Satisfactory for evaluation Endocervical component present 06/25/2020 12:20 PM BUSINESS INTELLIGENCE REPORTING ANALYST [facility] HPV REQUEST HPV if ASCUS 06/25/2020 12:20 PM BUSINESS INTELLIGENCE REPORTING ANALYST [facility] Additional Information 06/25/2020 12:20 PM BUSINESS INTELLIGENCE REPORTING ANALYST [facility] Comment: Interpreted at [facility] - [address] [place] [id number] Automated Review Successful 06/25/2020 12:20 PM BUSINESS INTELLIGENCE REPORTING ANALYST [facility] Comment:Specimen processed s uccessfully by automated student counsellor device, ThinPrep Imaging System, [employer] Note The pap test is a screening technique, not a diagnostic procedure. It is used primarily to screen for squamous cancers and precursor lesions. Published studies have shown that it is subject to both false negative and false positive results. The pap test should not be used as the sole means to diagnose or exclude pre-malignant and malignant lesions. 06/25/2020 12:20 PM BUSINESS INTELLIGENCE REPORTING ANALYST [facility] Other (Cervical/Vagina l) 06/17/2020 3:15 PM BUSINESS INTELLIGENCE REPORTING ANALYST 06/18/2020 5:45 PM BUSINESS INTELLIGENCE REPORTING ANALYST Lise Nation CNM PATHOLOGY/CYTOLOGY Final Re sult [facility] [address] [place] [address], from Last 3 Months or Most Recently Relevant to Health Maintenance Insurance [id number] [place] [id number] [facility] [id number] [id number] [id number] [id number] [facility] [address] [id number] [place] [id number] [id number] [place] [id number] Care Teams Heavy Forging Machine Operator Relationship Specialty Start Date End Date None . PCP - General 01/13/23 Pcp, No . 10/16/16 Pcp, No . 08/25/13
--- OUTSIDE RECORDS SUMMARY | 2025-03-22 20:21 | XMS_ITS ---
Author Organization [facility] [employer] (ClinicalSummary Clone) Address Unknown Care Team Providers Care Stenciler Name Role Phone Unavailable Primary Care Physician Unavailab le Results * [UNITY] CARRIER SCREEN Performed by: Kaazing Component Value Range Date Sickle Cell Disease/Beta-Thalassemia/Hemo globinopathies carrier screen NEGATIVE 09/19/2024 03:25 am UT Alpha-Thalassemia carrier screen NEGATIVE 09/19/2024 03:25 am UT Cystic Fibrosis carrier screen NEGATIVE 09/19/2024 03:25 am UT Spinal Muscular Atrophy carrier screen NEGATIVE 2 SMN1 copies, SNP not present 09/19/2024 03:25 am UT For detailed report, see PDF See PDF 09/19/2024 03:25 am UTC 09/19/2024 03:2 5 am UT Social History Observation Value Start Date End Date
--- OUTSIDE RECORDS SUMMARY | 2025-03-22 20:21 | XMS_ITS ---
Author Organization [facility] (ClinicalSummary Clone) Address Unknown Care Team Providers Care Language Specialist Name Role Phone Unavailable Primary Care Physician Unavailab le Results * [UNITY] ANEUPLOIDY NIPT Performed by: Maxymiser Component Value Range Date Fraction 11.9% 09/16/2024 06 :19 pm UTC 22q11.2 Microdeletion LOW RISK <1 in 10,000 09/16/2024 06:19 pm UTC Sex Chromosome Aneuploidy NOT DETECTED 06:19 pm UTC Monosomy X LOW RISK <1 in 10,000 2024 06:19 pm UTC Trisomy 13 LOW RISK <1 in 10,000 2024 06:19 pm UTC Trisomy 18 LOW RISK <1 in 10,000 2024 06:19 pm UTC Trisomy 21 LOW RISK <1 in 10,000 2024 06:19 pm UTC Sex MALE 09/16/2024 06:1 9 pm UTC Gestation MEYER 09/17/19 25 06:19 pm UTC For detailed report, see PDF See PDF 09/16/2024 06:19 pm UTC 09/16/2024 06:1 9 pm UTC Social History Observation Value Start Date End Date
--- NOTE | 2025-03-22 20:46 | ED.GENADULT ---
HPI - General Adult General Chief complaint: Headache/Migraine Stated complaint: chills, headahce Time Seen by Provider: 03/22/25 20:28 History of Present Illness HPI narrative: Patient is a 29-year-old woman who comes in today with headache. She delivered a baby via approximately 2 weeks ago. He is noted to have post anemia but is otherwise been feeling fine. She has no abdominal pain no fevers no chills no night sweats no cough no shortness of breath. She has no stiff neck. Her headache is frontal and seems to be fairly persistent over the last 24 hours. She has taken Tylenol at home with no improvement. No other focal neurologic complaints. Related Data Home Medications ?Medication ?Instructions ?Recorded ?Confirmed docosahexaenoic acid 200 mg 200 mg PO DAILY 07/17/24 03/08/25 capsule ( DHA) Previous Rx's ?Medication ?Instructions ?Recorded ferrous sulfate 325 mg (65 mg 325 mg PO .every other day #30 tabs 03/11/25 iron) tablet oxycodone 5 mg tablet 5 mg PO Q6H PRN Pain #10 tabs 03/11/25 Allergies Allergy/AdvReac Type Severity Reaction Status Date / Time No Known Drug Allergies Allergy Verified 03/22/25 20:29 Review of Systems Status of ROS: Reports: 10 or more systems reviewed and unremarkable except as noted in History and below [facility] Medical History Villitis of unknown etiology ?O43.899 - Other placental disorders, unspecified trimester (ICD-10) History of ectopic ?Z87.59 - Personal history of other complications of , childbirth and the puerperium (ICD-10) of unknown anatomic location ?O36.80X0 - with inconclusive viability, not applicable or unspecified (ICD-10) Complete miscarriage (02/18/24) ?O03.9 - Complete or unspecified spontaneous without complication (ICD-10) Surgical History History of unilateral salpingectomy ?Z90.79 - Acquired absence of other genital organ(s) (ICD-10) History of 2 sections ?Z98.891 - History of uterine scar from previous surgery (ICD-10) Family History Mother Uterine cancer High blood pressure Diabetes Father High blood pressure High cholesterol Diabetes Social History Narrative: Stay at home mom. High School diploma. Exercises twice weekly. Denies tobacco, alcohol, or illicit drug use. feels safe in home. . Has 2 kids. What is your current living situation?: I presently have a place to live Problems where you live: no known problems In the past 12 months, utilities in danger of being shut off: no In past 12 months, lack of transportation kept you from medical appts, meetings, work, or getting things needed for daily living: no In the past 12 mos, have been you worried that your food would run out before you had money to buy more?: never true In the past 12 mos, the food you bought just didn't last and you didn't have money to buy more?: never true Smoking Status: Never smoker Do you use any of these nicotine containing products: None Second hand tobacco smoke exposure: No How often do you have a drink containing alcohol: never AUDIT-C Alcohol total score: 0 Non-prescribed substance use: denies use Caffeine: Yes How often does anyone, including family, friends and others, physically hurt you: never How often does anyone, including family, friends and others, insult or talk down to you: never How often does anyone, including family, friends and others, threaten you with harm: never How often does anyone, including family, friends and others, scream or curse at you: never service: No Exam Narrative: Exam Narrative: EXAM GENERAL: Patient appears comfortable and well. EYES: No scleral icterus. LYMPH: No supraclavicular or cervical lymphadenopathy. SKIN: Visible skin seen during exam normal or with benign process only. EXT: No dependent lower extremity pedal edema. HEART: Regular rate and rhythm with no murmurs, rubs, or gallops. LUNGS: Clear to auscultation bilaterally with no crackles or wheezes. ABD: Soft, non tender, non distended. PSYCH: Good eye contact, speech is not pressured. Neurologic cranial nerves 2-12 grossly intact no focal defects. Const: Vital Signs, click to edit/add: Vital Signs - 24 hr 03/22/25 20:25 03/22/25 21:01 03/22/25 21:02 Temperature 98.9 F Pulse Rate 104 H 108 H Pulse Rate [Right Pulse Oximeter] 115 H Respiratory Rate 18 Blood Pressure 110/66 113/62 Blood Pressure [Ri ght Upper Arm] 136/85 Pulse Oximetry 98 96 94 Oxygen Delivery Me thod Room Air 03/22/25 21:03 03/22/25 21:15 03/22/25 21:30 Temperature Pulse Rate 104 H 99 99 Pulse Rate [Right Pulse Oximeter] Respiratory Rate Blood Pressure Blood Pressure [Ri ght Upper Arm] Pulse Oximetry 95 97 95 Oxygen Delivery Me thod 03/22/25 21:32 03/22/25 21:45 Temperature Pulse Rate 101 H 97 Pulse Rate [Right Pulse Oximeter] Respiratory Rate Blood Pressure 112/64 Blood Pressure [Ri ght Upper Arm] Pulse Oximetry 96 95 Oxygen Delivery Me thod Course Course ED Course: We will send off a CMP and CBC. We will give her L of saline 4 mg of Zofran 25 mg of Benadryl and 30 mg of Toradol. Will reassess. Vital Signs Vital signs: Initial Vital Signs Temperature 98.9 F 03/22/25 20:25 Temperature Source Temporal Artery Scan 03/22/25 20:25 Pulse Rate 115 H 03/22/25 20:25 Pulse Rhythm Regular 03/22/25 20:25 Pulse Strength 3+ Normal 03/22/25 20:25 Respiratory Rate 18 03/22/25 20:25 Blood Pressure 136/85 03/22/25 20:25 Blood Pressure Mean 102 03/22/25 20:25 Blood Pressure Position Supine 03/22/25 20:25 Pulse Oximetry 98 03/22/25 20:25 Oxygen Delivery Method Room Air 03/22/25 20:25 Vital Signs Temperature 98.9 F 03/22/25 20:25 Pulse Rate 115 H 03/22/25 20:25 Respiratory Rate 18 03/22/25 20:25 Blood Pressure 136/85 03/22/25 20:25 Pulse Oximetry 98 03/22/25 20:25 Oxygen Delivery Method Room Air 03/22/25 20:25 Temperature 98.9 F 03/22/25 20:25 Pulse Rate 97 03/22/25 21:45 Respiratory Rate 18 03/22/25 20:25 Blood Pressure 112/64 03/22/25 21:32 Pulse Oximetry 95 03/22/25 21:45 Oxygen Delivery Method Room Air 03/22/25 20:25 Medications Administered Medications: Discontinued Medications Generic Name Dose Route Start Last Admin Trade Name Kimberly PRN Reason Stop Dose Admin Diphenhydramine HCl 25 mg 03/22/25 20:44 03/22/25 21:11 Diphenhydramine 50 Mg/Ml Inj IVP 03/22/25 20:45 25 mg ONCE ONE Administration Sodium Chloride 1,000 mls @ 1,000 mls/hr 03/22/25 20:45 03/22/25 21:50 0.9 % Sodium Chloride 1000 Ml IV 03/22/25 21:44 Infused .Q1H ADAIR Infusion Ketorolac Tromethamine 30 mg 03/22/25 20:44 03/22/25 21:09 Ketorolac 30 Mg/Ml Inj IVP 03/22/25 20:45 30 mg ONCE ONE Administration Medical Decision Making [facility] Narrative Medical decision making narrative: Patient is a 29-year-old woman who comes in today with headache approximately 12 days . She has really no localizing symptoms. Her vital signs are stable. I did treated with a 30 mg of Toradol 4 mg of Zofran 25 mg of Benadryl and 1 L of saline. She is feeling better and can be discharged home. I did run some blood work in her hemoglobin is up from 8 to 10. She will follow-up with her physician as scheduled. Lab Data Labs: Lab Results 03/22/25 Range/Units 20:55 WBC 10.93 (4.50-11.00) K/uL RBC 3.56 L (4.00-5.20) m/uL Hgb 10.2 L (12.0-16.0) gm/dL Hct 31.9 L (33.0-51.0) % MCV 90 (80-100) fL MCH 29 (26-34) pg MCHC 32 (32-36) gm/dL RDW Coeff of Brittni 14.7 (11.5-15.5) % Plt Count 407 (140-440) K/uL Neut % (Auto) 80.4 H (42.0-72.0) % Lymph % (Auto) 10.2 L (20-44) % Lassen % (Auto) 5.3 (0.0-11.0) % Eos % (Auto) 2.2 (0.0-7.0) % Baso % (Auto) 0.5 (0.0-3.0) % Neut # (Auto) 8.80 H (1.7-7.0) K/uL Lymph # (Auto) 1.10 (0.90-2.90) K/uL Lassen # (Auto) 0.60 (0.00-0.90) K/UL Eos # (Auto) 0.24 (0.00-0.50) K/uL Baso # (Auto) 0.05 (0.00-0.30) K/uL Abs Immat Gran (auto) 0.15 (0.00-0.30) K/uL Imm/Tot Granulo (auto) 1.4 % Sodium 134 L (135-149) mmol/L Potassium 3.8 (3.6-5.1) mmol/L Chloride 100 (96-114) mmol/L Carbon Dioxide 24 (20-32) mmol/L Anion Gap 10 (7-15) mEq/L BUN 10 (5-24) mg/dL Creatinine 0.6 (0.5-1.5) mg/dL Estimated Creat Clear 123.37 Estimated GFR 124 ml/min Glucose 112 (60-115) mg/dL Calcium 8.8 (8.4-10.6) mg/dL Total Bilirubin 0.6 (0.1-1.5) mg/dL AST 25 (12-35) U/L ALT 14 (4-35) U/L Alkaline Phosphatase 123 (40-150) U/L Total Protein 7.6 (6.0-8.3) g/dL Albumin 4.0 (3.3-5.0) g/dL Discharge Plan Discharge Clinical Impression: Headache Patient Disposition: Home, Self-Care Condition: Stable Instructions: Acute Headache (ED) Additional Instructions: Continue current care Rest Follow-up with your doctor as needed. Activity Level: No Restrictions Discharge Diet: Regular Prescriptions: No Action DHA 200 mg capsule 200 mg PO DAILY oxycodone 5 mg Tablet 5 mg PO Q6H PRN (Reason: Pain) Qty: 10 0RF ferrous sulfate 325 mg (65 mg iron) tablet 325 mg PO .every other day Qty: 30 0RF Follow Up/Referrals: Provider,Not a Local [Primary Care Provider, Family Practice] Stand Alone Forms: [employer] Info Instructions
[2025-03-22 21:17] LABS: Hematocrit* 31.9 % (33.0-51.0); Hemoglobin* 10.2 gm/dL (12.0-16.0); Immature Granulocytes Abs Auto 0.15 K/uL (0.00-0.30); Immature Granulocytes Pct Auto 1.4 %; Mean Corpuscular HGB Conc 32 gm/dL (32-36); Mean Corpuscular Hemoglobin 29 pg (26-34); Mean Corpuscular Volume 90 fL (80-100); RDW Coefficient of Variation % 14.7 % (11.5-15.5); Red Blood Count* 3.56 m/uL (4.00-5.20); White Blood Count* 10.93 K/uL (4.50-11.00)
[2025-03-22 21:18] LABS: Albumin* 4.0 g/dL (3.3-5.0); Chloride* 100 mmol/L (96-114); Lymphocytes Absolute Auto 1.10 K/uL (0.90-2.90); Potassium* 3.8 mmol/L (3.6-5.1); Slide Review Reflex No; Sodium* 134 mmol/L (135-149)
[2025-03-22 21:20] LABS: Blood Urea Nitrogen* 10 mg/dL (5-24); Creatinine* 0.6 mg/dL (0.5-1.5); Est. Creatinine Clearance* 123.37; Estimated Glomerular Filt Rate 124 ml/min
[2025-03-22 21:21] LABS: Alanine Aminotransferase* 14 U/L (4-35); Alkaline Phosphatase* 123 U/L (40-150); Anion Gap 10 mEq/L (7-15); Aspartate Amino Transferase* 25 U/L (12-35); Bilirubin Total* 0.6 mg/dL (0.1-1.5); Calcium* 8.8 mg/dL (8.4-10.6); Carbon Dioxide* 24 mmol/L (20-32); Glucose* 112 mg/dL (60-115); Total Protein* 7.6 g/dL (6.0-8.3)
== END 2025-03-22 22:14 | disposition home or self-care (01) ==
PROVIDERS: Emergency Provider Internal Medicine
DX: O99.893 Other specified diseases and conditions complicating puerperium (principal); R51.9 Headache, unspecified
CPT/HCPCS: 36415; 80053; 85025; 96361; 96365; 96374; 96375; 99283; 99284; J1200; J1885; J7030